=== PATIENT | male | born 1955 | race African-American/Black ===

== ENCOUNTER 2018-08-14 20:26 | Inpatient (IN) | payer MEDICARE ==
[~2018-08-14 20:26] MED LIST: ISOVUE-370 76%-LOCM 1 ML ONE
[2018-08-14] MEDS ORDERED: Acetaminophen/Codeine 30-300mg Tablet PO PRN (21:55)
[2018-08-14] MEDS ORDERED: Morphine 2 MG/ML SYRINGE SLOW IVP PRN (21:55)
[2018-08-14] MEDS ORDERED: Zolpidem Tartrate 5 MG TAB PO PRN (21:55)
[2018-08-14] MEDS ORDERED: traMADol HCl 50 MG TAB PO PRN (21:55)
--- NOTE | 2018-08-14 22:05 | CT ---
CTA CHEST WITH IV CONTRAST AND 3D POSTPROCESSING CTA ABDOMEN WITH IV CONTRAST AND 3D POSTPROCESSIN08/14/18 HISTORY: 62-year-old male with hemoptysis and concern for aortic dissection. FINDINGS: The thoracoabdominal aorta is well opacified without aneurysm or intimal flap to suggest dissection. The main pulmonary arteries are well opacified without filling defects to suggest central pulmonary e mbolism. Peripheral pulmonary embolism cannot be excluded on this study. No pleural or pericardial effusions are seen. Emphysematous changes are seen most prominent in the up per lung aguiar. There is a 10 mm nodule in the left upper lobe. Mild reticulonodular infiltrate is a lso seen in the central portion of the left upper lobe. Evaluation of solid organs is suboptimal due to imaging during the arterial phase of contrast adminis tration. The pancreas, adrenal glands, and kidneys are unremarkable. No free air or free fluid is see n in the abdomen. There Are degenerative changes in the thoracolumbar spine. IMPRESSION: 1. No evidence of aortic dissection. 2. 1 cm left upper lobe lung nodule. Further evaluation with PET scan is recommended. Discussed over the telephone with Dr. Horvath at 8:[address] p[address]. Code CR Code LN POS: [facility]
[2018-08-14] MEDS: Sodium Chloride 0.9% 1,000 ML IV SCH (22:16)
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
[2018-08-14] MEDS ORDERED: Nitroglycerin 50 MG/250 ML BOT 250 ML IVPB SCH (22:45)
[2018-08-14 22:52] LABS: CKMB 52.5 ng/mL (0-6.6)
[2018-08-14 23:07] LABS: Troponin I 125.441 ng/mL (< 0.028)
[2018-08-15] MEDS: Ondansetron PF 4 MG/2 ML Vial IVP PRN ×2 (00:55→05:46)
[2018-08-15] MEDS: Sodium Chloride 0.9% 1,000 ML IV SCH ×2 (03:11→22:30)
[2018-08-15 06:23] LABS: #Monocytes 1.3 thou/uL (0.11-0.59); #Neutrophils 11.6 thou/uL (1.40-6.50); %Basophils 0.2 % (0.0-1.0); %Lymphocytes 6.9 % (21.0-51.0); %Monocytes 9.6 % (0.0-10.0); %Neutrophils 83.3 % (42.0-75.0); Hemoglobin 14.7 g/dL (14.0-18.0); Mean Corpuscular HGB CONC 32.3 g/dL (32.0-36.0); Mean Corpuscular Hemoglobin 30.2 pg (27.0-31.0); Mean Corpuscular Volume 93.6 fL (78.0-98.0); Mean Platelet Volume 7.3 fL (7.4-10.4); Platelet Count 220 thou/uL (130-400); RBC Distribution Width 11.7 % (11.5-14.5); Red Blood Cell (RBC) Count 4.87 mill/uL (4.70-6.10); White Blood Cell (WBC) Count 13.9 thou/uL (4.8-10.8)
[2018-08-15 06:30] LABS: ALT (SGPT) 43 U/L (8-55); AST (SGOT) 235 U/L (5-34); Albumin 3.5 g/dL (3.4-4.8); Alkaline Phosphatase 124 U/L (40-150); Anion Gap 16 mmol/L (10-20); BUN (Urea Nitrogen) 12 mg/dL (8.4-25.7); Bilirubin, Total 0.9 mg/dL (0.2-1.2); Calc. Creatinine Clearance 78 mL/min (70-130); Calcium 8.7 mg/dL (7.8-10.44); Carbon Dioxide 22 mmol/L (23-31); Chloride 94 mmol/L (98-107); Estimated GFR-MDRD Greater than 90; Globulin 2.6 g/dL (2.4-3.5); Glucose 316 mg/dL (80-115); Potassium 3.8 mmol/L (3.5-5.1); Protein, Total 6.1 g/dL (5.8-8.1); Sodium 128 mmol/L (136-145)
[2018-08-15 06:54] LABS: CKMB 61.3 ng/mL (0-6.6); Troponin I 145.447 ng/mL (< 0.028)
[2018-08-15] MEDS: Aspirin Chewable 81 MG TAB PO SCH (08:30)
[2018-08-15] MEDS: Clopidogrel Bisulfate 75 MG TAB PO SCH (08:30)
[2018-08-15] MEDS ORDERED: Dextrose 50% Abboject 50 ML SYRINGE SLOW IVP PRN (15:08)
[2018-08-15] MEDS ORDERED: Dextrose 5% in Water 1,000 ML IV PRN (15:08)
[2018-08-15] MEDS ORDERED: Lisinopril 10 MG TAB PO SCH (15:30)
[2018-08-15] MEDS ORDERED: Carvedilol 6.25 MG TAB PO SCH (15:30)
[2018-08-15] MEDS: HumaLOG 300 UNITS/3 ML VIAL SC PRN (16:01)
[2018-08-15] MEDS: Carvedilol 6.25 MG TAB PO SCH (16:24)
--- NOTE | 2018-08-15 17:08 | EKG ---
Test Reason : POST CATH Blood Pressure : / mmHG Vent. Rate : 114 BPM Atrial Rate : 114 BPM P-R Int : 128 ms QRS Dur : 086 ms QT Int : 370 ms P-R-T Axes : 074 042 089 degrees QTc Int : 509 ms Sinus tachycardia with Premature atrial complexes Biatrial enlargement Left ventricular hypertrophy ST elevation consider inferior injury or acute infarct ACUTE CT / STEMI Consider right ventricular involvement in acute inferior infarct Abnormal ECG Confirmed by Karla BILLS ([id number]) on 08/15/2018 5:07:49 PM Referred By: Mandi ALBERT Confirmed By:Karla BILLS
--- NOTE | 2018-08-15 17:08 | EKG ---
Test Reason : Blood Pressure : / mmHG Vent. Rate : 104 BPM Atrial Rate : 104 BPM P-R Int : 126 ms QRS Dur : 092 ms QT Int : 368 ms P-R-T Axes : 075 -35 091 degrees QTc Int : 483 ms Sinus tachycardia Right atrial enlargement Left axis deviation Minimal voltage criteria for LVH, may be normal variant Inferior-posterior infarct , possibly acute * ACUTE NH * Consider right ventricular involvement in acute inferior infarct Abnormal ECG When compared with ECG of 14-AUG-2018 22:37, (Unconfirmed) Premature atrial complexes are no longer Present QRS axis Shifted left Inferior-posterior infarct is now Present ST less depressed in Lateral leads Confirmed by Karla BILLS ([id number]) on 08/15/2018 5:08:45 PM Referred By: ROOSEVELT Confirmed By:Karla BILLS
--- NOTE | 2018-08-15 18:51 | PDOC.CTH ---
Cardiology Progress Note - Subjective He is doing better. His Hemoptysis is better but still present. No chest pain. - Objective Vital Signs Temp BP Pulse Ox 08/15/18 16:24 170/17 H 08/15/18 16:00 98.4 F 08/15/18 15:57 170/107 H 08/15/18 12:00 98.5 F 08/15/18 07:07 100 08/15/18 07:00 98.7 F Admit Weight 144 lb Weight 144 lb 9.972 oz 08/14/18 08/15/18 08/16/18 06:59 06:59 06:59 Intake Total 1314 1974 Output Total 850 1100 Balance 464 874 - Physical Examination General/Neuro: alert & oriented x3, NAD Neck: no JVD present Lungs: unlabored respirations Heart: RRR Abdomen: NT/ND Extremities: other: (no edema) - Telemetry Telemetry Rhythm: NSR - Labs Result Diagrams: 08/15/18 05:58 08/15/18 03:30 Troponin/CKMB CK-MB (CK-2) 61.3 ng/mL (0-6.6) H* 08/15/18 04:00 Troponin I 145.447 ng/mL (< 0.028) H* 08/15/18 04:00 - Assessment/Plan 1. Acute inferior STEMI 2. S/P BMS to LCx. 3. Hemoptysis. 4. Pulmonary nodule 5. Type 2 diabetes, new onset. PLAN: - Will stop nitro drip - Increase BB and ACEI - Continue MAXIMINO with aspirin and plavix for minimum of one month. - High dose statins. - Possible bronchoscopy per pulmonary. - Continue to monitor Hgb. - 45 minutes critical care.
[2018-08-15 20:18] LABS: Critical Call Chem Troponin I RESULT DECREASING
[2018-08-15 20:58] LABS: CKMB 17.7 ng/mL (0-6.6); Critical Call CKMB RESULT DECREASING
[2018-08-15] MEDS: Atorvastatin Calcium 40 MG TAB PO SCH (21:21)
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
[2018-08-16] MEDS: Sodium Chloride 0.9% 1,000 ML IV SCH ×2 (05:26→12:54)
[2018-08-16] MEDS: HumaLOG 300 UNITS/3 ML VIAL SC PRN ×3 (05:31→20:24)
[2018-08-16 05:53] LABS: #Lymphocytes 1.3 thou/uL (1.20-3.40); #Monocytes 1.5 thou/uL (0.11-0.59); #Neutrophils 9.8 thou/uL (1.40-6.50); %Basophils 0.1 % (0.0-1.0); %Eosinophils 0.2 % (0.0-10.0); %Monocytes 11.8 % (0.0-10.0); %Neutrophils 77.9 % (42.0-75.0); Hemoglobin 13.2 g/dL (14.0-18.0); Mean Corpuscular HGB CONC 31.2 g/dL (32.0-36.0); Mean Corpuscular Hemoglobin 29.3 pg (27.0-31.0); Mean Corpuscular Volume 93.9 fL (78.0-98.0); Mean Platelet Volume 7.4 fL (7.4-10.4); Platelet Count 199 thou/uL (130-400); RBC Distribution Width 11.5 % (11.5-14.5); White Blood Cell (WBC) Count 12.6 thou/uL (4.8-10.8)
[2018-08-16 06:20] LABS: ALT (SGPT) 30 U/L (8-55); AST (SGOT) 79 U/L (5-34); Albumin 3.2 g/dL (3.4-4.8); Alkaline Phosphatase 96 U/L (40-150); Anion Gap 14 mmol/L (10-20); BUN (Urea Nitrogen) 10 mg/dL (8.4-25.7); Bilirubin, Total 1.3 mg/dL (0.2-1.2); Calc. Creatinine Clearance 92 mL/min (70-130); Calcium 8.7 mg/dL (7.8-10.44); Carbon Dioxide 22 mmol/L (23-31); Chloride 99 mmol/L (98-107); Estimated GFR-MDRD Greater than 90; Globulin 2.6 g/dL (2.4-3.5); Glucose 179 mg/dL (80-115); Potassium 3.9 mmol/L (3.5-5.1); Protein, Total 5.8 g/dL (5.8-8.1); Sodium 131 mmol/L (136-145)
[2018-08-16] MEDS ORDERED: Fentanyl 100 MCG/2 ML VIAL ONE (08:27)
[2018-08-16] MEDS: Lisinopril 10 MG TAB PO SCH (08:32)
[2018-08-16] MEDS: Carvedilol 6.25 MG TAB PO SCH ×2 (08:33→16:27)
[2018-08-16] MEDS: Clopidogrel Bisulfate 75 MG TAB PO SCH (08:34)
[2018-08-16] MEDS: Aspirin Chewable 81 MG TAB PO SCH (08:34)
--- NOTE | 2018-08-16 12:17 | PRG ---
DATE OF SERVICE: 08/16/2018 SERVICE: Pulmonary Medicine. INTERVAL HISTORY: The patient stopped having hemoptysis last night. He denies any current chest pain, fevers, or chills. There were no overnight events. His chest discomfort has improved significantly since his blood vessel has opened up. He is going to go down for a bronchoscopy this morning. PHYSICAL EXAMINATION: VITAL SIGNS: Afebrile, pulse 93, blood pressure 167/108, respirations 21, saturation 100% on room air. GENERAL: The patient is awake and alert, in no apparent distress. LUNGS: Decent air entry. There is no prolonged expiratory phase, wheezing, rhonchi, or crackles. HEART: Normal rate and regular. ABDOMEN: Soft, nontender, and nondistended. Bowel sounds positive. MUSCULOSKELETAL: No cyanosis or clubbing. No pitting in the bilateral lower extremities. NEUROLOGIC: Grossly nonfocal. LABORATORY DATA: WBC 12.6, hemoglobin 13.2, and platelets 199,000. Sodium 131. Basic metabolic profile is otherwise unremarkable. His sodium is uptrending. Total bilirubin 1.3, AST 97. Liver function studies are otherwise unremarkable. Troponin is beautifully downtrending down to 75. Blood cultures x2 are negative to date. ASSESSMENT: 1. Pulmonary nodule. 2. Hemoptysis. 3. Acute myocardial infarction, status post bare metal stent to the circumflex. 4. Type 2 diabetes mellitus. DISCUSSION AND PLAN: We are in line to proceed with bronchoscopy. Obviously, I will not be able to take a biopsy, but brushings, and BAL from the left upper lobe could be tolerated. Since the patient is asymptomatic, I will table the V/Q scan for the time being. Pulmonary/Critical Care will continue to follow along. Job ID: [id number]
[2018-08-16] MEDS ORDERED: PROPOFOL 200 MG/20 ML VIAL ONE (15:38)
[2018-08-16] MEDS ORDERED: Glycopyrrolate 0.2 MG/ML 5 ML SYRINGE ONE (15:38)
[2018-08-16] MEDS ORDERED: Rocuronium Bromide 10 MG/ML (10ML VIAL) ONE (15:38)
--- NOTE | 2018-08-16 16:32 | PDOC.CTH ---
Cardiology Progress Note - Subjective He is doing well. No chest pain. BP better controlled. - Objective Vital Signs Temp BP Pulse Ox 08/16/18 16:27 148/93 H 08/16/18 12:00 98.9 F 08/16/18 08:33 152/97 H 08/16/18 08:32 152/97 H 08/16/18 07:12 100 Admit Weight 144 lb Weight 144 lb 9.972 oz 08/15/18 08/16/18 08/17/18 06:59 06:59 06:59 Intake Total 1314 2054 360 Output Total 850 1500 0 Balance 464 554 360 - Physical Examination General/Neuro: alert & oriented x3, NAD Neck: no JVD present Lungs: CTA, unlabored respirations Heart: RRR Abdomen: NT/ND Extremities: other: (no edema) - Telemetry Telemetry Rhythm: NSR - Labs Result Diagrams: 08/16/18 05:24 08/16/18 05:24 Troponin/CKMB CK-MB (CK-2) 17.7 ng/mL (0-6.6) H* 08/15/18 18:57 Troponin I 75.016 ng/mL (< 0.028) H* 08/15/18 18:57 - Assessment/Plan 1. Acute inferior STEMI 2. S/P BMS to LCx. 3. Hemoptysis. 4. Pulmonary nodule 5. Type 2 diabetes, new onset. PLAN: - Increase BB and ACEI - Continue MAXIMINO with aspirin and plavix for minimum of one month. - High dose statins. - Continue to monitor Hgb. - No more hemoptysis. - Will transfer to telemetry. - Likely home tomorrow.
[2018-08-16] MEDS: Atorvastatin Calcium 40 MG TAB PO SCH (20:23)
[2018-08-16] MEDS: HumuLIN 70/30 (300 UNITS/3 ML VIAL) SC SCH (20:24)
--- NOTE | 2018-08-16 23:02 | OP ---
DATE OF PROCEDURE: 08/16/2018 SERVICE: Pulmonary Medicine. PROCEDURE PERFORMED: Fiberoptic bronchoscopy with: 1. Visual airway inspection. 2. Endobronchial brush of the left upper lobe. 3. Bronchoalveolar lavage of the left upper lobe. PREPROCEDURE DIAGNOSES: 1. Pulmonary nodule. 2. Hemoptysis. POSTPROCEDURE DIAGNOSES: 1. Pulmonary nodule. 2. Hemoptysis. PREANESTHESIA ASSESSMENT: H and P had been performed. The patient's medications and allergies were reviewed. Informed consent was obtained after discussing the risks, benefits, and rationale for performing the procedure as well as alternative options. DESCRIPTION OF PROCEDURE: A time-out was performed identifying the correct procedure and the patient with name and date of . A diagnostic fiberoptic bronchoscope was introduced through the endotracheal tube. The bronchoscope was advanced into the trachea, where a tracheobronchial tree inspection was carried out with clear identification of the right upper lobe, right middle lobe, right lower lobe, left upper lobe, lingula, and left lower lobe. Anatomy was normal to the segmental level. Endobronchial lesion was noted in the anterolateral segment (anterior subsegment) of the left upper lobe. This lesion was brushed under direct observation. Endobronchial biopsies could not be done because the patient requires Plavix for next month. Bronchoalveolar lavage was obtained from the left upper lobe in the same segment. Following the lavage, I could no longer identify the lesion. There was old blood that was coming primarily from the left lung, more severe in the left upper lobe, consistent with this lesion being our source. FINDINGS: 1. Araceli was sharp. 2. Endobronchial lesion was identified in the anterolateral segment of the left upper lobe, anterior segment. 3. Old blood was identified, primarily coming from that same segment. SPECIMENS OBTAINED: Brushing and BAL for pathology. COMPLICATIONS: None. ESTIMATED BLOOD LOSS: None that is fresh. FLUOROSCOPY TIME: None. DISPOSITION: The patient will be transitioned back to the ICU once he meets criteria. Job ID: [id number] [facility]
[2018-08-17] MEDS: Nitroglycerin 0.4 MG TAB (25 Tab Bottle) SL PRN (00:29)
[2018-08-17] MEDS ORDERED: Amiodarone 450 MG, Admixture Fee 1 EACH in Dextrose 5% in Water 250 ML IVPB SCH (00:45)
[2018-08-17] MEDS: HumaLOG 300 UNITS/3 ML VIAL SC PRN ×2 (06:21→17:03)
[2018-08-17 07:13] LABS: #Lymphocytes 1.2 thou/uL (1.20-3.40); #Monocytes 0.9 thou/uL (0.11-0.59); %Basophils 0.3 % (0.0-1.0); %Eosinophils 0.2 % (0.0-10.0); %Lymphocytes 13.2 % (21.0-51.0); %Neutrophils 76.3 % (42.0-75.0); Hemoglobin 12.2 g/dL (14.0-18.0); Mean Corpuscular HGB CONC 31.4 g/dL (32.0-36.0); Mean Corpuscular Hemoglobin 31.1 pg (27.0-31.0); Mean Corpuscular Volume 98.9 fL (78.0-98.0); Mean Platelet Volume 7.4 fL (7.4-10.4); Platelet Count 201 thou/uL (130-400); RBC Distribution Width 11.6 % (11.5-14.5); Red Blood Cell (RBC) Count 3.94 mill/uL (4.70-6.10); White Blood Cell (WBC) Count 9.2 thou/uL (4.8-10.8)
[2018-08-17 07:38] LABS: ALT (SGPT) 29 U/L (8-55); AST (SGOT) 63 U/L (5-34); Albumin 3.1 g/dL (3.4-4.8); Alkaline Phosphatase 146 U/L (40-150); Anion Gap 14 mmol/L (10-20); BUN (Urea Nitrogen) 15 mg/dL (8.4-25.7); Bilirubin, Total 1.1 mg/dL (0.2-1.2); Calc. Creatinine Clearance 81 mL/min (70-130); Calcium 8.4 mg/dL (7.8-10.44); Carbon Dioxide 21 mmol/L (23-31); Chloride 100 mmol/L (98-107); Estimated GFR-MDRD Greater than 90; Globulin 2.5 g/dL (2.4-3.5); Glucose 298 mg/dL (80-115); Potassium 3.9 mmol/L (3.5-5.1); Protein, Total 5.6 g/dL (5.8-8.1); Sodium 131 mmol/L (136-145)
[2018-08-17] MEDS: Carvedilol 6.25 MG TAB PO SCH ×2 (09:59→17:02)
[2018-08-17] MEDS: Aspirin Chewable 81 MG TAB PO SCH (10:00)
[2018-08-17] MEDS: Lisinopril 10 MG TAB PO SCH (10:00)
[2018-08-17] MEDS: Clopidogrel Bisulfate 75 MG TAB PO SCH (10:00)
[2018-08-17] MEDS: HumuLIN 70/30 (300 UNITS/3 ML VIAL) SC SCH ×2 (10:02→20:20)
--- NOTE | 2018-08-17 10:28 | PDOC.CTH ---
Cardiology Progress Note - Subjective He went into afib RVR last night. Back in sinus this morning. Was started on amiodarone drip. - Objective Vital Signs Temp BP 08/17/18 10:00 148/93 H 08/17/18 09:59 148/93 H 08/17/18 06:00 98.8 F 08/17/18 00:00 100.1 F H Admit Weight 144 lb Weight 144 lb 9.972 oz 08/16/18 08/17/18 08/18/18 06:59 06:59 06:59 Intake Total 2054 1238 Output Total 1500 2300 Balance 554 -1062 - Physical Examination General/Neuro: alert & oriented x3, NAD Neck: no JVD present Lungs: CTA, unlabored respirations Heart: RRR Abdomen: NT/ND Extremities: other: (no edema) - Telemetry Telemetry Rhythm: Afib --> NSR - Labs Result Diagrams: 08/17/18 06:41 08/17/18 06:41 Troponin/CKMB CK-MB (CK-2) 17.7 ng/mL (0-6.6) H* 08/15/18 18:57 Troponin I 75.016 ng/mL (< 0.028) H* 08/15/18 18:57 - Assessment/Plan 1. Acute inferior STEMI 2. S/P BMS to LCx. 3. Hemoptysis. 4. Pulmonary nodule 5. Type 2 diabetes, new onset. 6. Post PR afib. PLAN: - Increase BB and ACEI - Continue MAXIMINO with aspirin and plavix for minimum of one month. - High dose statins. - No more hemoptysis. - Will stop amiodarone. - Aspirin alone for stroke prophylaxis due to his hemoptysis. - Transfer to telemetry when room available. - Home tomorrow if stable.
--- NOTE | 2018-08-17 12:06 | PRG ---
DATE OF SERVICE: 08/17/2018 SERVICE: Pulmonary Medicine. INTERVAL HISTORY: The patient is doing really well from respiratory standpoint. Last night, he had an elevated blood pressure went into atrial fibrillation. He was put on amiodarone and nitroglycerin. Nitroglycerin is once again off. His blood pressure is under good control, he has gone back into apparent sinus rhythm. PHYSICAL EXAMINATION: VITAL SIGNS: Afebrile with a T-max of 100.1. Pulse 77, blood pressure 126/80, respirations 22, and saturation 95% on room air. GENERAL: The patient is awake and alert, in no apparent distress. LUNGS: Excellent air entry with no prolonged expiratory phase or wheezing present. HEART: Normal rate and regular. ABDOMEN: Soft, nontender, and nondistended. Bowel sounds are positive. MUSCULOSKELETAL: No cyanosis or clubbing. No pitting in the bilateral lower extremities. NEUROLOGIC: Grossly nonfocal. LABORATORY DATA: WBC 9.2, hemoglobin 12.2, and platelets 201,000. Basic metabolic profile is essentially unremarkable with a sodium of 131. Liver function studies are unremarkable/improving. Blood cultures x2 are negative. Pathology on BAL and brushing is pending. ASSESSMENT: 1. Pulmonary nodule, status post brushing and BAL (no transbronchials secondary to requirement for anti-platelet medication). 2. Hemoptysis, coming from left upper lobe where the endobronchial lesion was present. 3. Acute myocardial infarction, status post bare metal stent to the circumflex. 4. Paroxysmal atrial fibrillation. 5. Type 2 diabetes mellitus. DISCUSSION AND PLAN: We will await the pathology. If it is helpful, we will know we need to do. If it is not, my plan is to repeat a CT scan in 3 months. The patient is stable for transition to the telemetry unit. I will repeat hemoglobin tomorrow morning. Pulmonary will continue to follow along. Job ID: [id number] [facility]
[2018-08-17] MEDS: Atorvastatin Calcium 40 MG TAB PO SCH (20:19)
[2018-08-18] MEDS: Amiodarone 450 MG, Admixture Fee 1 EACH in Dextrose 5% in Water 250 ML IVPB SCH ×2 (00:07→08:48)
[2018-08-18] MEDS ORDERED: Multivitamins, Adult 10 ML, Thiamine HCl 100 MG, Folic Acid 1 MG in Dextrose 5 %-0.45 %... IV SCH (00:30)
[2018-08-18 05:02] LABS: Hemoglobin 11.9 g/dL (14.0-18.0)
[2018-08-18 05:25] LABS: Anion Gap 11 mmol/L (10-20); BUN (Urea Nitrogen) 10 mg/dL (8.4-25.7); Calc. Creatinine Clearance 94 mL/min (70-130); Calcium 8.7 mg/dL (7.8-10.44); Carbon Dioxide 28 mmol/L (23-31); Chloride 101 mmol/L (98-107); Estimated GFR-MDRD Greater than 90; Glucose 154 mg/dL (80-115); Potassium 4.1 mmol/L (3.5-5.1); Sodium 136 mmol/L (136-145)
[2018-08-18] MEDS: Carvedilol 6.25 MG TAB PO SCH ×2 (08:42→16:28)
[2018-08-18] MEDS: Lisinopril 10 MG TAB PO SCH (08:43)
[2018-08-18] MEDS: Clopidogrel Bisulfate 75 MG TAB PO SCH (08:44)
[2018-08-18] MEDS: Aspirin Chewable 81 MG TAB PO SCH (08:44)
[2018-08-18] MEDS: HumuLIN 70/30 (300 UNITS/3 ML VIAL) SC SCH ×2 (08:46→21:21)
--- NOTE | 2018-08-18 09:29 | PRG ---
DATE OF SERVICE: 08/18/2018 SUBJECTIVE: Rylie Medley this morning, denies any pain or discomfort or chest pain. He is status post bronchoscopy, status post cardiac cath, underwent brushings, so far cytology has been negative. He will be transferred to a monitored bed. OBJECTIVE: VITAL SIGNS: Blood pressure 152/80, saturations are 98%, respiratory rate 18, pulse 80. CHEST: Decreased breath sounds. No wheezing. CARDIAC: Normal S1, S2. No gallops. ABDOMEN: No masses. IMPRESSION: Status post STEMI, atrial fibrillation, lung mass, status post bronchoscopy. PLAN: He will be transferred to Telemetry. Continue cardiac care. Further pulmonary workup is more stable. Job ID: [id number]
--- NOTE | 2018-08-18 12:11 | PDOC.CTH ---
Cardiology Progress Note - Subjective The pt seen and examined. No overnight events. No cardiac complaints. - Objective Vital Signs Temp Pulse Resp BP BP Pulse Ox 08/18/18 09:44 98.4 F 73 16 167/82 H 93 L 08/18/18 08:43 152/118 H 08/18/18 08:42 152/118 H 08/18/18 08:00 97 08/18/18 06:00 99.5 F Admit Weight 144 lb Weight 153 lb 14.122 oz 08/17/18 08/18/18 08/19/18 06:59 06:59 06:59 Intake Total 1238 1004 Output Total 2300 2150 Balance -1062 -1146 - Physical Examination General/Neuro: alert & oriented x3 Neck: no JVD present Lungs: CTA (diminished at bases) Abdomen: soft Extremities: other: (No edema) - Telemetry Telemetry Rhythm: SR - Labs Result Diagrams: 08/18/18 04:51 08/18/18 04:51 Troponin/CKMB CK-MB (CK-2) 17.7 ng/mL (0-6.6) H* 08/15/18 18:57 Troponin I 75.016 ng/mL (< 0.028) H* 08/15/18 18:57 - Assessment/Plan 1. Acute inferior STEMI with S/P BMS to LCx - On Coreg 6.25mg BID, Plavix 75mg qd, ASA 81mg qd, and Lipitor 80mg qd 2. Post TN afib - Amio drip was restarted around 08/18/2018 MN and back to SR around 0630 this AM. Cont. Amio drip will be changed to PO from tomorrow AM. 3. Pulmonary nodule - stable with RA 4. Type 2 diabetes, new onset 5. Hemoptysis - stable. 6. HTN - Increase Lisinopril from 10mg to 20mg qd from today MAR reviewed Review of Systems - Review of Systems Constitutional: reports: no symptoms reported EENTM: reports: no symptoms reported Respiratory: reports: no symptoms reported Cardiac (ROS): reports: no symptoms reported ABD/GI: reports: no symptoms reported : reports: no symptoms reported Musculoskeletal: reports: no symptoms reported
[2018-08-18] MEDS: HumaLOG 300 UNITS/3 ML VIAL SC PRN (13:06)
[2018-08-18] MEDS ORDERED: Lisinopril 10 MG TAB PO SCH (13:30)
[2018-08-18] MEDS: Atorvastatin Calcium 40 MG TAB PO SCH (21:19)
[2018-08-18] MEDS ORDERED: Diazepam 10 MG/2 ML SYRINGE IVP SCH (22:00)
[2018-08-18] MEDS ORDERED: Lorazepam 2 MG/ML VIAL ONE (22:00)
[2018-08-18] MEDS: hydrALAZINE 20 MG/ML VIAL SLOW IVP PRN (22:12)
[2018-08-18] MEDS ORDERED: Nitroglycerin 0.4 MG TAB (25 Tab Bottle) ONE (22:29)
[2018-08-18] MEDS ORDERED: Furosemide 40 MG/4 ML VIAL ONE (22:39)
--- NOTE | 2018-08-18 22:58 | RAD ---
Chest one view HISTORY: Syncope. COMPARISON: 08/14/2018. FINDINGS: Cardiac silhouette is magnified by projection. Pulmonary vasculature upper limits of normal . Reticulonodular interstitial prominence is present throughout the right lung in the left upper lobe. Relative sparing of the left lower lobe. Defibrillator patch overlies the left upper chest. No evidence of pneumothorax. Circular opacity overlies the lower cardiac silhouette. Suspect extrinsic artifact. IMPRESSION: Borderline pulmonary vascular congestion.
[2018-08-18] MEDS ORDERED: Morphine 2 MG/ML SYRINGE SLOW IVP SCH (23:00)
[2018-08-18] MEDS ORDERED: Furosemide 40 MG/4 ML VIAL SLOW IVP SCH (23:00)
[2018-08-18 23:12] LABS: Actual Bicarbonate (HCO3a) 26.9 mEq/L (22-28); Analyzer IN Cardio OR; Base Excess (BEa) -2.6 mEq/L (-2.0 to +3.0); Carboxyhemoglobin (COHb) 1.5 gm% (0.0-3.0); Hemoglobin (Hb) 12.6 g/dL (14.0-18.0); Potassium - ABG Lab 4.19 mmol/L (3.70-5.30)
[2018-08-18 23:13] LABS: CO2 Tension 70.7 mmHg (35.0-45.0); O2 Tension (PaO2) 35.8 mmHg (> 80.0)
[2018-08-18 23:14] LABS: ALV-art Gradient 75.465 (0-20); Puncture Site RRA
[2018-08-18] MEDS ORDERED: Nitroglycerin 2% Ointment 1 INCH/1 GM Packet ONE (23:22)
[2018-08-18 23:39] LABS: Actual Bicarbonate (HCO3a) 24.7 mEq/L (22-28); Base Excess (BEa) 0.4 mEq/L (-2.0 to +3.0); Carboxyhemoglobin (COHb) 2.2 gm% (0.0-3.0); Hemoglobin (Hb) 12.3 g/dL (14.0-18.0); O2 Tension (PaO2) 121.6 mmHg (> 80.0); Potassium - ABG Lab 3.63 mmol/L (3.70-5.30); pH, Arterial 7.42 (7.35-7.45)
[2018-08-18 23:41] LABS: Puncture Site RRAD
[2018-08-18 23:44] LABS: Actual Bicarbonate (HCO3a) 25.5 mEq/L (22-28); Base Excess (BEa) -1.7 mEq/L (-2.0 to +3.0); CO2 Tension 53.9 mmHg (35.0-45.0); Calcium, Ionized 1.08 mmol/L (1.12-1.30); Carboxyhemoglobin (COHb) 1.8 gm% (0.0-3.0); Hemoglobin (Hb) 12.4 g/dL (14.0-18.0); Potassium - ABG Lab 4.04 mmol/L (3.70-5.30); pH, Arterial 7.29 (7.35-7.45)
[2018-08-18 23:45] LABS: Actual Bicarbonate (HCO3a) 27.9 mEq/L (22-28); Calcium, Ionized 1.21 mmol/L (1.12-1.30); Carboxyhemoglobin (COHb) 2.1 gm% (0.0-3.0); Hemoglobin (Hb) 12.2 g/dL (14.0-18.0)
[2018-08-18 23:47] LABS: Puncture Site RRAD
[2018-08-18 23:48] LABS: ALV-art Gradient 235.625 (0-20)
[2018-08-18 23:48] LABS: O2 Tension (PaO2) 54.2 mmHg (> 80.0); pH, Arterial 7.09 (7.35-7.45)
[2018-08-18 23:49] LABS: Puncture Site RRAD
[2018-08-18] MEDS: Morphine 4 MG/ML VIAL ONE ×2 (23:54)
[2018-08-19] MEDS: Amiodarone 450 MG, Admixture Fee 1 EACH in Dextrose 5% in Water 250 ML IVPB SCH ×2 (00:35→17:23)
[2018-08-19] MEDS: Budesonide 0.5 MG/2 ML NEB NEB SCH ×3 (00:36→18:39)
[2018-08-19 01:31] LABS: Cocaine Metabolite Screen Not Detected (NotDetected); Medtox Reader # READER 4; Methamphetamine Not Detected (NotDetected); Phencyclidine (PCP) Not Detected (NotDetected); THC/Cannabinoid Screen Detected (NotDetected)
[2018-08-19 01:32] LABS: Amphetamine Not Detected (NotDetected); Barbiturates Screen Not Detected (NotDetected); Benzodiazepine Screen Detected (NotDetected); Medtox Control Line Valid? VALID (VALID); Methadone Not Detected (NotDetected); Opiate Screen Detected (NotDetected); Oxycodone Screen Not Detected (NotDetected); Tricyclic Screen Not Detected (NotDetected)
[2018-08-19 06:38] LABS: #Lymphocytes 1.1 thou/uL (1.20-3.40); #Monocytes 0.8 thou/uL (0.11-0.59); #Neutrophils 8.4 thou/uL (1.40-6.50); %Basophils 0.2 % (0.0-1.0); %Eosinophils 0.2 % (0.0-10.0); %Lymphocytes 10.8 % (21.0-51.0); %Monocytes 7.9 % (0.0-10.0); %Neutrophils 80.8 % (42.0-75.0); Hemoglobin 10.8 g/dL (14.0-18.0); Mean Corpuscular HGB CONC 31.5 g/dL (32.0-36.0); Mean Corpuscular Hemoglobin 30.2 pg (27.0-31.0); Mean Corpuscular Volume 95.8 fL (78.0-98.0); Mean Platelet Volume 7.4 fL (7.4-10.4); Platelet Count 246 thou/uL (130-400); RBC Distribution Width 11.4 % (11.5-14.5); Red Blood Cell (RBC) Count 3.58 mill/uL (4.70-6.10); White Blood Cell (WBC) Count 10.4 thou/uL (4.8-10.8)
[2018-08-19 07:05] LABS: ALT (SGPT) 29 U/L (8-55); AST (SGOT) 33 U/L (5-34); Albumin 3.1 g/dL (3.4-4.8); Alkaline Phosphatase 147 U/L (40-150); Anion Gap 12 mmol/L (10-20); BUN (Urea Nitrogen) 13 mg/dL (8.4-25.7); Bilirubin, Total 1.2 mg/dL (0.2-1.2); Calc. Creatinine Clearance 96 mL/min (70-130); Calcium 8.2 mg/dL (7.8-10.44); Carbon Dioxide 27 mmol/L (23-31); Chloride 99 mmol/L (98-107); Estimated GFR-MDRD Greater than 90; Globulin 2.6 g/dL (2.4-3.5); Glucose 156 mg/dL (80-115); Potassium 3.9 mmol/L (3.5-5.1); Protein, Total 5.7 g/dL (5.8-8.1); Sodium 134 mmol/L (136-145)
[2018-08-19 07:16] LABS: Syphilis Antibody Nonreactive (Nonreactive); Syphilis Antibody Index 0.05 S/CO (<1.00 Non-Reactive)
--- NOTE | 2018-08-19 08:15 | RAD ---
CHEST 1 VIEW: Date: 08/19/18 INDICATION: Status post code. COMPARISON: Prior exam dated 08/18/18. FINDINGS: There is worsening interstitial and air space opacity of the right lower lobe. Heart size is within n ormal limits. Pulmonary vasculature is within normal limits. Left lung is clear. No pleural effusion or pneumothorax is evident. Pacer pad overlying left chest wall is stable. IMPRESSION: 1. Worsening opacity of right infrahilar region may reflect worsening pneumonia or aspiration. 2. No additional acute abnormality. POS: [facility]
--- NOTE | 2018-08-19 08:19 | PRG ---
DATE OF SERVICE: 08/19/2018 SUBJECTIVE: Yesterday, he became markedly agitated, anxious. Stated he could not breathe. The code di was called in. He was given hydralazine. Placed on non-rebreather, still had some difficulty breathing. They called Cardiology, who has given him some nitroglycerin, Lasix. Transferred to the ICU on BiPAP. This morning, he appears to be in no acute distress. He is still on his BiPAP. I had reviewed his chest x-ray from last night and this morning. I do not see any obvious masses. He has a small right lower lung infiltrate, not enough to account for his marked respiratory distress. OBJECTIVE: VITAL SIGNS: His pulse is 67, saturations are 99%, respirations 20, blood pressure 140/90. CHEST: Decreased breath sounds. I hear no wheezing. CARDIAC: Normal S1, S2. No gallops. ABDOMEN: Soft. LABORATORY DATA: His PO2 is 121, pCO2 on BiPAP. His lytes are normal. White count is unremarkable. IMPRESSION: Respiratory distress, major anxiety, coronary artery disease endobronchial mass, hemoptysis, question whether pneumonia. PLAN: Continue amiodarone, neb treatments, supportive care. Empiric antibiotics. We will follow while in the ICU. One-half hour of critical care time. Job ID: [id number]
[2018-08-19] MEDS: Clopidogrel Bisulfate 75 MG TAB PO SCH (09:27)
[2018-08-19] MEDS: Aspirin Chewable 81 MG TAB PO SCH (09:27)
[2018-08-19] MEDS: Magnesium Oxide 400 MG TAB PO SCH (09:27)
[2018-08-19] MEDS: Multivitamin W/ Minerals 1 TAB PO SCH (09:27)
[2018-08-19] MEDS: Thiamine 100 MG TAB PO SCH (09:27)
[2018-08-19] MEDS: Folic Acid 1 MG TAB PO SCH (09:27)
[2018-08-19] MEDS: cefTRIAXone\\ROCEPHIN 1 GM in Sodium Chloride 0.9% 100 ML IVPB SCH (09:27)
[2018-08-19] MEDS: Lisinopril 20 MG TAB PO SCH (09:27)
[2018-08-19] MEDS: Carvedilol 6.25 MG TAB PO SCH ×2 (09:28→16:52)
[2018-08-19] MEDS: HumuLIN 70/30 (300 UNITS/3 ML VIAL) SC SCH ×2 (10:24→20:14)
[2018-08-19] MEDS: Lorazepam 2 MG/ML VIAL SLOW IVP PRN ×2 (11:19→20:15)
[2018-08-19] MEDS: HumaLOG 300 UNITS/3 ML VIAL SC PRN (11:19)
--- NOTE | 2018-08-19 16:48 | PRG ---
DATE OF SERVICE: 08/19/2018 SUBJECTIVE: Mr. Medley is a very pleasant 62-year-old gentleman, who was admitted with a myocardial infarction, inferior myocardial infarction acutely, underwent angioplasty and stent placement to the right coronary artery. He was doing relatively well until yesterday evening when he was lying down, watching a basketball game, he became very short of breath and then it progressed. He said he could not breathe and felt very tight, thought he had gas. He was seen by the nursing staff. He continued to decompensate, was transferred to intensive care unit, where he was placed on a BiPAP mass. He was given 40 mg of IV Lasix as well as hydralazine. He had significant hypertension at that time, blood pressure was over 200. He was given hydralazine, sublingual nitroglycerin, and given 2 mg of morphine and Ativan 2 mg. his O2 saturations were significantly decreased. His CO2 was elevated up to 95 with a pH of 7.06 with an O2 of 73. After being placed on the BiPAP a few minutes later, he increased it with a pO2 up to 400 and pCO2 was down to 53 with a pH of 7.29. O2 saturations had improved. He was still significantly agitated and we did notice that he has had infiltration of the IV, it was not going, his medications were just being subcu infused unfortunately, so it took some while for this to take effect. He was given DuoNeb. He still continues to have significant wheezing, was very tight in the chest. After the Lasix, he did have some urinary output. The blood pressure had improved, down to 146/81. He remained in sinus rhythm. After the patient became somewhat more calm after the medications started to take effect, the blood pressure noted to improve. His O2 saturations improved and final ABGs showed a pH of 7.42 with a pCO2 of 39 and pO2 of 121, and 99% saturations and blood pressure has remained stable and he did well for the remainder of the night. This morning, he is stable. He is comfortable. He remembers the events of the evening. Blood pressure is 128/86, heart rate is 81 and shows a sinus rhythm, respiratory rate is 20. He is off the BiPAP mask. He is on room air and has no significant complaints at this time. Hemoglobin was 10.8 and platelet count 246,000. His potassium is 3.9 and creatinine 0.79. His blood sugar is 214. Yesterday evening, the chest x-ray did show evidence of congestion, mainly on the right side, but no other acute events were noted. He did have some increased what appeared to be congestion and possible pneumonia. There were no significant effusions noted. This was reviewed by myself yesterday evening after it was acutely performed. There were no acute findings. There did not appear to be any acute pulmonary edema. I's and O's, he has put out yesterday evening total of about 700 mL and otherwise he seems to be doing quite well. It was thought perhaps he was having some EtOH withdrawal. However, he said he had not had any beers to drink in several days. He was started on a banana bag to ensure that he was getting his correct electrolytes and thiamine, just in case he was having early DTs. He did have a history of some anxiety, but otherwise appeared to be quite stable in this morning. OBJECTIVE: CHEST: Minimal expiratory wheezing, otherwise is clear. CARDIOVASCULAR: Reveals a regular rate and rhythm. There were no gross murmurs noted. ABDOMEN: Soft, flat, and nontender. EXTREMITIES: No edema. The patient is alert and oriented and has no complaints at this time. PLAN: We will continue to follow the patient and further recommendations will follow after the review the echocardiogram today. Hopefully, he will be able to transfer out of the CCU this morning. Job ID: [id number]
[2018-08-19] MEDS: Atorvastatin Calcium 40 MG TAB PO SCH (20:13)
[2018-08-19] MEDS ORDERED: Morphine 4 MG/ML VIAL ONE (20:48)
[2018-08-19] MEDS: Nitroglycerin 0.4 MG TAB (25 Tab Bottle) SL PRN ×2 (20:55→21:00)
[2018-08-19] MEDS: hydrALAZINE 20 MG/ML VIAL SLOW IVP PRN (21:03)
[2018-08-20 04:47] LABS: Anion Gap 12 mmol/L (10-20); BUN (Urea Nitrogen) 14 mg/dL (8.4-25.7); Calc. Creatinine Clearance 92 mL/min (70-130); Calcium 8.4 mg/dL (7.8-10.44); Carbon Dioxide 27 mmol/L (23-31); Chloride 99 mmol/L (98-107); Estimated GFR-MDRD Greater than 90; Glucose 183 mg/dL (80-115); Potassium 4.5 mmol/L (3.5-5.1); Sodium 133 mmol/L (136-145)
[2018-08-20] MEDS: Budesonide 0.5 MG/2 ML NEB NEB SCH ×2 (07:50→18:55)
[2018-08-20] MEDS: Aspirin Chewable 81 MG TAB PO SCH (08:26)
[2018-08-20] MEDS: Carvedilol 6.25 MG TAB PO SCH ×2 (08:26→18:03)
[2018-08-20] MEDS: Multivitamin W/ Minerals 1 TAB PO SCH (08:26)
[2018-08-20] MEDS: Magnesium Oxide 400 MG TAB PO SCH (08:26)
[2018-08-20] MEDS: Folic Acid 1 MG TAB PO SCH (08:26)
[2018-08-20] MEDS: Clopidogrel Bisulfate 75 MG TAB PO SCH (08:26)
[2018-08-20] MEDS: Thiamine 100 MG TAB PO SCH (08:26)
[2018-08-20] MEDS: Lisinopril 20 MG TAB PO SCH (08:26)
[2018-08-20] MEDS: cefTRIAXone\\ROCEPHIN 1 GM in Sodium Chloride 0.9% 100 ML IVPB SCH (08:27)
[2018-08-20] MEDS: HumuLIN 70/30 (300 UNITS/3 ML VIAL) SC SCH ×2 (08:34→20:56)
[2018-08-20] MEDS: Amiodarone 450 MG, Admixture Fee 1 EACH in Dextrose 5% in Water 250 ML IVPB SCH (09:33)
[2018-08-20] MEDS: HumaLOG 300 UNITS/3 ML VIAL SC PRN (11:29)
[2018-08-20 11:56] LABS: Calc. Creatinine Clearance 84 mL/min (70-130); Estimated GFR-MDRD Greater than 90
[2018-08-20 12:07] LABS: CKMB 7.1 ng/mL (0-6.6)
--- NOTE | 2018-08-20 12:27 | PDOC.CTH ---
Cardiology Progress Note - Subjective He feels back to normal. - Objective Vital Signs Temp Pulse Resp BP Pulse Ox 08/20/18 08:26 133/85 08/20/18 08:00 98.3 F 136/79 100 08/20/18 07:50 76 23 H 95 08/20/18 03:00 98.8 F 08/20/18 02:33 72 Admit Weight 144 lb Weight 153 lb 14.122 oz 08/19/18 08/20/18 08/21/18 06:59 06:59 06:59 Intake Total 1716 2055 300 Output Total 2300 1355 0 Balance -584 700 300 - Physical Examination General/Neuro: alert & oriented x3, NAD Neck: no JVD present Lungs: CTA, unlabored respirations Heart: RRR Abdomen: NT/ND Extremities: other: (no edema) - Telemetry Telemetry Rhythm: NSR - Labs Result Diagrams: 08/19/18 05:49 08/20/18 11:01 Troponin/CKMB CK-MB (CK-2) 7.1 ng/mL (0-6.6) H* 08/20/18 11:00 Troponin I 8.994 ng/mL (< 0.028) H* 08/20/18 11:00 - Assessment/Plan 1. Acute inferior STEMI 2. S/P BMS to LCx. 3. Hemoptysis. 4. Pulmonary nodule 5. Type 2 diabetes, new onset. 6. Post [place] afib. PLAN: - Continue BB and ACEI - Continue MAXIMINO with aspirin and plavix for minimum of one month. - High dose statins. - No more hemoptysis. - Stop amiodarone. - Aspirin alone for stroke prophylaxis due to his hemoptysis. - Transfer to [facility] for now and if stable tomorrow discharge home.
[2018-08-20] MEDS: Atorvastatin Calcium 40 MG TAB PO SCH (20:58)
--- NOTE | 2018-08-20 22:30 | EKG ---
Test Reason : STAT Blood Pressure : / mmHG Vent. Rate : 155 BPM Atrial Rate : 166 BPM P-R Int : 000 ms QRS Dur : 092 ms QT Int : 296 ms P-R-T Axes : 000 019 140 degrees QTc Int : 475 ms Atrial fibrillation with rapid ventricular response Posterior infarct , possibly acute Marked ST abnormality, possible lateral subendocardial injury ACUTE TX / STEMI Abnormal ECG When compared with ECG of 15-AUG-2018 07:11, Significant changes have occurred Confirmed by Karla BILLS ([id number]) on 08/20/2018 10:30:19 PM Referred By: ROOSEVELT Confirmed By:Karla BILLS
--- NOTE | 2018-08-20 22:33 | EKG ---
Test Reason : Blood Pressure : / mmHG Vent. Rate : 078 BPM Atrial Rate : 078 BPM P-R Int : 132 ms QRS Dur : 094 ms QT Int : 392 ms P-R-T Axes : 022 000 090 degrees QTc Int : 446 ms Normal sinus rhythm Possible Left atrial enlargement Inferior infarct , possibly acute * ACUTE TN * Consider right ventricular involvement in acute inferior infarct Abnormal ECG When compared with ECG of 17-AUG-2018 00:28, (Unconfirmed) Significant changes have occurred Confirmed by Karla BILLS ([id number]) on 08/20/2018 10:32:44 PM Referred By: CLARISSE Confirmed By:Karla BILLS
--- NOTE | 2018-08-20 22:40 | EKG ---
Test Reason : STAT Blood Pressure : / mmHG Vent. Rate : 149 BPM Atrial Rate : 298 BPM P-R Int : 000 ms QRS Dur : 078 ms QT Int : 278 ms P-R-T Axes : -62 -10 163 degrees QTc Int : 437 ms Atrial flutter with 2:1 A-V conduction Posterior infarct (cited on or before 14-AUG-2018) Marked ST abnormality, possible lateral subendocardial injury ACUTE IN / STEMI Abnormal ECG When compared with ECG of 17-AUG-2018 09:47, (Unconfirmed) Significant changes have occurred Confirmed by Karla BILLS ([id number]) on 08/20/2018 10:40:38 PM Referred By: ROOSEVELT Confirmed By:Karla BILLS
--- NOTE | 2018-08-20 22:48 | EKG ---
Test Reason : Blood Pressure : / mmHG Vent. Rate : 080 BPM Atrial Rate : 080 BPM P-R Int : 138 ms QRS Dur : 086 ms QT Int : 432 ms P-R-T Axes : 032 050 091 degrees QTc Int : 498 ms Normal sinus rhythm Possible Left atrial enlargement Inferior-posterior infarct , possibly acute T wave abnormality, consider lateral ischemia ACUTE PR / STEMI Consider right ventricular involvement in acute inferior infarct Abnormal ECG When compared with ECG of 17-AUG-2018 23:27, (Unconfirmed) Significant changes have occurred Confirmed by Karla BILLS ([id number]) on 08/20/2018 10:47:48 PM Referred By: NEGAR Confirmed By:Karla BILLS
[2018-08-21] MEDS: Amiodarone 450 MG, Admixture Fee 1 EACH in Dextrose 5% in Water 250 ML IVPB SCH (02:56)
[2018-08-21 06:06] LABS: Anion Gap 9 mmol/L (10-20); BUN (Urea Nitrogen) 12 mg/dL (8.4-25.7); Calc. Creatinine Clearance 99 mL/min (70-130); Calcium 8.4 mg/dL (7.8-10.44); Carbon Dioxide 28 mmol/L (23-31); Chloride 99 mmol/L (98-107); Estimated GFR-MDRD Greater than 90; Glucose 92 mg/dL (80-115); Sodium 132 mmol/L (136-145)
[2018-08-21] MEDS: Budesonide 0.5 MG/2 ML NEB NEB SCH ×2 (07:10→18:22)
[2018-08-21] MEDS: Carvedilol 6.25 MG TAB PO SCH ×2 (09:53→17:34)
[2018-08-21] MEDS: Aspirin Chewable 81 MG TAB PO SCH (09:54)
[2018-08-21] MEDS: cefTRIAXone\\ROCEPHIN 1 GM in Sodium Chloride 0.9% 100 ML IVPB SCH (09:54)
[2018-08-21] MEDS: Multivitamin W/ Minerals 1 TAB PO SCH (09:55)
[2018-08-21] MEDS: Thiamine 100 MG TAB PO SCH (09:55)
[2018-08-21] MEDS: Clopidogrel Bisulfate 75 MG TAB PO SCH (09:55)
[2018-08-21] MEDS: HumuLIN 70/30 (300 UNITS/3 ML VIAL) SC SCH ×2 (09:55→20:39)
[2018-08-21] MEDS: Folic Acid 1 MG TAB PO SCH (09:55)
[2018-08-21] MEDS: Lisinopril 20 MG TAB PO SCH (09:55)
[2018-08-21] MEDS: Magnesium Oxide 400 MG TAB PO SCH (09:55)
--- NOTE | 2018-08-21 10:19 | PRG ---
DATE OF SERVICE: 08/21/2018 INTERVAL HISTORY: The patient is doing really well from respiratory standpoint. He was not coughing up any blood, but had a couple small episodes of hemoptysis last night. It subsequently resolved once again. He denies any current fevers or chills. He wears BiPAP last night. There were no significant respiratory events noted. PHYSICAL EXAMINATION: VITAL SIGNS: Afebrile, pulse 80, blood pressure 137/76, respirations 26, and saturation 96% on room air. GENERAL: The patient is awake and alert, in no apparent distress. LUNGS: Decent air entry. No prolonged expiratory phase or wheezing is appreciated. Dependent crackles are minimal. HEART: Normal rate and regular. ABDOMEN: Soft, nontender, nondistended. Bowel sounds are positive. MUSCULOSKELETAL: No cyanosis or clubbing. He has [place] edema of the right upper extremity, which is new, and some left upper extremity tenderness/swelling as well. No edema is present in bilateral lower extremities. : No Solorzano. NEUROLOGIC: Grossly nonfocal. LABORATORY DATA: Sodium 132. Basic metabolic profile is otherwise unremarkable. Blood cultures x2 are unremarkable. IMAGING DATA: Echocardiogram demonstrates normal ejection fraction. There is an inferoposterior akinesis. Mildly elevated right atrium and left atrium. Moderate mitral regurgitation is noted. ASSESSMENT: 1. Pulmonary nodule, status post brushing and bronchoalveolar lavage, negative for malignancy. 2. Hemoptysis, improving slowly. 3. Acute myocardial infarction, status post bare-metal stent to the circumflex. 4. Paroxysmal atrial fibrillation. 5. Intermittent episodes of hypertension, resulting in respiratory failure. 6. Mitral regurgitation. DISCUSSION AND PLAN: The patient is doing absolutely wonderful from respiratory standpoint. We will try to maintain good control of his blood pressure. He is back into a sinus rhythm. I would like to keep him off BiPAP for the next 24 hours to see whether or not he will be ready for transition out of the ICU/hospital. Pulmonary/Critical Care will continue to follow along. Ultimately, repeat imaging is going to be performed in 3 months with an additional sampling procedure if indicated. Job ID: [id number]
--- NOTE | 2018-08-21 11:32 | ULT ---
EXAM: US Venous Doppler Bilat PROVIDED CLINICAL HISTORY: Bilateral arm swelling/edema, right greater than left at the level of the mid forearm. COMPARISON: None available. FINDINGS: Grayscale, color-flow, Doppler evaluation, and spectral analysis of the bilateral upper extremity toñito ous structures is performed with 2-D imaging. There is normal compressibility and flow seen within the bilateral upper extremity internal jugular, axillary, and brachial as well as ulnar and radial veins. Normal flow is seen within the subclavian veins bilaterally. There is increased luminal echogenicity and decreased lumen compressibility as well as absence of chris w seen within the right upper extremity basilic vein from the level of the mid upper arm to the level of the lower forearm. There is also a small amount of echogenic material and decreased lumen co mpressibility seen in the right upper extremity cephalic vein from the level of the antecubital fossa to the level of the mid forearm There is normal luminal compressibility and flow seen within the left upper extremity basilic and cep halic veins. IMPRESSION: 1. Occlusive thrombus within the right upper extremity basilic vein which is a superficial vein. Ther e is also nonocclusive thrombus within a segment of the right upper extremity cephalic vein. This is also a superficial vein. 2. No evidence of a DVT involving the visualized deep venous structures of the bilateral upper extrem ities. 3. Results of this examination were verbally discussed with Della, the nurse on the hospital floor by Monae Hicks the time study technologist on 08/21/2018 at 1113 hours.
[2018-08-21] MEDS ORDERED: Enoxaparin Sodium 80 MG/0.8 ML SYRINGE SC SCH (11:45)
--- NOTE | 2018-08-21 15:25 | PDOC.CTH ---
Cardiology Progress Note - Subjective Continues to have hemoptysis over night. He had swelling of both hands. - Objective Vital Signs Temp Pulse Resp BP Pulse Ox 08/21/18 15:07 98.6 F 08/21/18 12:00 128/88 08/21/18 10:44 99.3 F 08/21/18 09:55 130/92 H 08/21/18 09:53 130/92 H 08/21/18 08:00 130/92 H 08/21/18 07:11 97.5 F L 08/21/18 07:10 76 18 98 08/21/18 04:16 99.3 F 08/21/18 04:00 130/92 H Admit Weight 144 lb Weight 157 lb 2 oz 08/20/18 08/21/18 08/22/18 06:59 06:59 06:59 Intake Total 2055 1750.8 Output Total 1355 950 Balance 700 800.8 - Physical Examination General/Neuro: alert & oriented x3, NAD Neck: no JVD present Lungs: CTA, unlabored respirations Heart: RRR Abdomen: NT/ND Extremities: other: (no edema) - Telemetry Telemetry Rhythm: NSR - Labs Result Diagrams: 08/19/18 05:49 08/21/18 05:17 Troponin/CKMB CK-MB (CK-2) 7.1 ng/mL (0-6.6) H* 08/20/18 11:00 Troponin I 8.994 ng/mL (< 0.028) H* 08/20/18 11:00 - Assessment/Plan 1. Acute inferior STEMI 2. S/P BMS to LCx. 3. Hemoptysis. 4. Pulmonary nodule 5. Type 2 diabetes, new onset. 6. Post [place] afib. 7. Basilic vein thrombosis. PLAN: - He received a dose of full dose lovenox this morning given his basillic vein thrombosis. - Will plan on continuing Plavix and aspirin until September 13, then switch to Eliquis alone for a total of 3 months and then Aspirin alone [facility]. - Continue BB and ACEI - High dose statins. - Continues to have hemoptysis, may have to discontinue full dose lovenox. - Switch amiodarone to PO load. . - BiPAP taken off this morning. - Home tomorrow if he remains stable.
[2018-08-21] MEDS: Atorvastatin Calcium 40 MG TAB PO SCH (20:38)
[2018-08-21] MEDS: Amiodarone 200 MG TAB PO SCH (20:38)
[2018-08-21] MEDS: Enoxaparin Sodium 80 MG/0.8 ML SYRINGE SC SCH (20:39)
[2018-08-22 05:16] LABS: Anion Gap 11 mmol/L (10-20); BUN (Urea Nitrogen) 13 mg/dL (8.4-25.7); Calc. Creatinine Clearance 92 mL/min (70-130); Calcium 8.5 mg/dL (7.8-10.44); Carbon Dioxide 28 mmol/L (23-31); Chloride 102 mmol/L (98-107); Estimated GFR-MDRD Greater than 90; Glucose 106 mg/dL (80-115); Potassium 3.7 mmol/L (3.5-5.1); Sodium 137 mmol/L (136-145)
[2018-08-22] MEDS: Budesonide 0.5 MG/2 ML NEB NEB SCH (07:44)
[2018-08-22] MEDS: cefTRIAXone\\ROCEPHIN 1 GM in Sodium Chloride 0.9% 100 ML IVPB SCH (09:43)
[2018-08-22] MEDS: Enoxaparin Sodium 80 MG/0.8 ML SYRINGE SC SCH (09:43)
[2018-08-22] MEDS: Amiodarone 200 MG TAB PO SCH (09:44)
[2018-08-22] MEDS: Lisinopril 20 MG TAB PO SCH (09:44)
[2018-08-22] MEDS: Folic Acid 1 MG TAB PO SCH (09:44)
[2018-08-22] MEDS: Aspirin Chewable 81 MG TAB PO SCH (09:44)
[2018-08-22] MEDS: Magnesium Oxide 400 MG TAB PO SCH (09:44)
[2018-08-22] MEDS: Clopidogrel Bisulfate 75 MG TAB PO SCH (09:44)
[2018-08-22] MEDS: Carvedilol 6.25 MG TAB PO SCH (09:44)
[2018-08-22] MEDS: HumuLIN 70/30 (300 UNITS/3 ML VIAL) SC SCH (09:45)
[2018-08-22 11:53] VITALS: TEMP 98.4
[2018-08-22 13:15] VITALS: BP 126/76
[2018-08-22 13:35] VITALS: BMI 25.2
--- NOTE | 2018-08-22 14:59 | DIS ---
DATE OF ADMISSION: 08/14/2018 DATE OF DISCHARGE: 08/22/2018 PRIMARY DIAGNOSES: 1. Inferior ST-elevation myocardial infarction. 2. New onset diabetes. 3. Status post bare-metal stent to the left circumflex. 4. Hemoptysis. 5. Pulmonary nodule. 6. Post myocardial infarction atrial fibrillation. 7. Basilic vein thrombosis. PROCEDURES PERFORMED: 1. Bare-metal stent to the left circumflex since his heart catheterization. 2. Echocardiogram. 3. Chest x-ray. 4. CT of the chest. 5. Pulmonary consultation. 6. Internal medicine consultation. HOSPITAL COURSE: Mr. Medley is a 62-year-old gentleman, who came to the hospital for chest pain. He was found to have inferior ST-elevation VA. He was brought to the catheterization lab, where he was found to have an occluded left circumflex. This was stented successfully with a bare-metal stent. He had developed hemoptysis the afternoon when he presented to the hospital, so that is why bare-metal stent was chosen. His hemoptysis was evaluated with a CT. They found a small nodule in the right upper lobe. Lavage of this done by Dr. Terrell with Pulmonary, showed benign findings. He was kept on Plavix and aspirin. In the next few days, he continued to have hemoptysis and episodes of worsening pulmonary edema despite a normal heart function. He had ultrasound of his upper extremities, which showed thrombosis on the superficial veins. There was a concern that he kept throwing a little blood clots to the lung causing him to have hemoptysis, so he was started on full anticoagulation with Lovenox. He tolerated this well. He has been switched to Eliquis on discharge. For discharge medications, please see discharge paperwork. He was also found to have new onset diabetes, so Internal Medicine Service was consulted and he will be discharged home on insulin 70/30 for this, much better control now. Sugars in the 90s. Followup appointments already scheduled in 1 month with myself, in [address] Terrell, in 2 weeks with PCP. Over 45 minutes was spent at bedside counseling for discharge. Job ID: [id number]
--- NOTE | 2018-08-22 15:44 | PRG ---
DATE OF SERVICE: 08/22/2018 SERVICE: Pulmonary Medicine. INTERVAL HISTORY: The patient did not have any additional hemoptysis overnight. Denies any current chest pain, fevers, or chills. That being said, he woke up in night sweat. When they got to check his temperature, his temperature was normal. That being said, the nurse speculated that he probably had an undocumented fever. Otherwise, he feels fantastic. He has a little bit of a cough and brought up some hemoptysis. All of this was old blood as of yesterday. He has not had any additional hemoptysis today. PHYSICAL EXAMINATION: VITAL SIGNS: Afebrile. Pulse 79, blood pressure 147/92, respirations 20, saturation 91% on room air. GENERAL: The patient is awake and alert, in no apparent distress. LUNGS: Decent air entry. Rhonchi are present. No prolonged expiratory phase or wheezing is appreciated. HEART: Normal rate and regular. ABDOMEN: Soft, nontender, nondistended. Bowel sounds are positive. MUSCULOSKELETAL: No cyanosis or clubbing. There is no pitting in the bilateral lower extremities. NEUROLOGIC: Grossly nonfocal. LABORATORY DATA: Basic metabolic profile is completely unremarkable. Blood cultures x2 are negative. IMAGING: Ultrasound of the upper extremity show multiple areas, in which there are clots. Some are in deep venous structures. ASSESSMENT: 1. Pulmonary nodule, status post brushing and bronchoalveolar lavage, negative for malignancy. 2. Hemoptysis, improving. 3. Acute myocardial infarction, status post bare-metal stent to the circumflex. 4. Paroxysmal atrial fibrillation. 5. Deep venous thrombosis. 6. Recurrent episodes of respiratory failure associated with hypertensive events , absent for over 24 hours. DISCUSSION AND PLAN: At this point, hemoptysis is resolving. We will wean the oxygen away. If he is on room air and can walk around, he can be considered for transition home today. Because of the elevated fever, we will give him a 5-day course of Augmentin. If he has any increasing respiratory difficulties in the outpatient setting, he will notify me. He will return to the emergency department if he has any significant hemoptysis. He understands that more than 3 tablespoons of blood in any one setting, is considered significant in my opinion and should prompt him to present to the emergency department. Otherwise, he is stable for transition out of the hospital today. Ultimately, my plan is to repeat a CT of the chest in 3 months. Job ID: [id number] MTDD
[2018-08-22] MEDS ORDERED: Apixaban 5 MG TAB PO SCH (21:00)
[2018-08-23 19:08] LABS: Metanephrine,Plasma 38 pg/mL (0-62); Normetanephrine,Pl 239 pg/mL (0-145)
== END 2018-08-22 14:04 | disposition home or self-care (01) | DRG 248 ==
LOC: ERS 20:26 → CCU 21:54 → 2NO 08-18 11:11 → CCU 08-18 22:30 → IMCU/EMU 08-20 13:55
PROVIDERS: ADMIT Internal Medicine Cardiovascular Disease; ATTEND Internal Medicine Cardiovascular Disease
PROC: 02703DZ Dilation of Coronary Artery, One Artery with Intraluminal Device, Percutaneous Approach (ICD-10-PCS; principal; 2018-08-14)
PROC: 02C03ZZ Extirpation of Matter from Coronary Artery, One Artery, Percutaneous Approach (ICD-10-PCS; 2018-08-14)
PROC: 4A023N7 Measurement of Cardiac Sampling and Pressure, Left Heart, Percutaneous Approach (ICD-10-PCS; 2018-08-14)
PROC: B2111ZZ Fluoroscopy of Multiple Coronary Arteries using Low Osmolar Contrast (ICD-10-PCS; 2018-08-14)
PROC: B2151ZZ Fluoroscopy of Left Heart using Low Osmolar Contrast (ICD-10-PCS; 2018-08-14)
PROC: 0B9G8ZX Drainage of Left Upper Lung Lobe, Via Natural or Artificial Opening Endoscopic, Diagnostic (ICD-10-PCS; 2018-08-16)
PROC: 0BDG8ZX Extraction of Left Upper Lung Lobe, Via Natural or Artificial Opening Endoscopic, Diagnostic (ICD-10-PCS; 2018-08-16)
PROC: 5A09357 Assistance with Respiratory Ventilation, Less than 24 Consecutive Hours, Continuous Positive Airway Pressure (ICD-10-PCS; 2018-08-18)
DX: I21.19 ST elevation (STEMI) myocardial infarction involving other coronary artery of inferior wall (principal); J96.00 Acute respiratory failure, unspecified whether with hypoxia or hypercapnia; R04.2 Hemoptysis; I82.619 Acute embolism and thrombosis of superficial veins of unspecified upper extremity; R91.1 Solitary pulmonary nodule; E11.9 Type 2 diabetes mellitus without complications; I10 Essential (primary) hypertension; F17.210 Nicotine dependence, cigarettes, uncomplicated; I48.0 Paroxysmal atrial fibrillation; I34.0 Nonrheumatic mitral (valve) insufficiency; Z91.14 Patient's other noncompliance with medication regimen
CPT/HCPCS: 36415; 36416; 71045; 71275; 80048; 80053; 80306; 82248; 82553; 82805; 83735; 83835; 84443; 84484; 85014; 85018; 85025; 86780; 87040; 88112; 88305; 93005; 93010; 93306; 93798; 93970; 94640; 94660; C1757; C1769; C1887; J0282; J0360; J0696; J1650; J1815; J1940; J2060; J2270; J2405; J2704; J3010; J3411; J3490; J7042; J7070; J7620; J7626; Q9966

== ENCOUNTER → 2018-08-14 | Day surgery (SDC) | payer MEDICARE | LOC: CCL 13:34 | PROVIDERS: ATTEND Internal Medicine Cardiovascular Disease | DX: I21.3 ST elevation (STEMI) myocardial infarction of unspecified site (principal) | CPT/HCPCS: 85347; 92943; 93458 ==

== ENCOUNTER 2018-08-23 07:17 | Inpatient (IN) | payer MEDICARE ==
[2018-08-23 07:40] LABS: #Basophils 0.1 thou/uL (0.0-0.2); #Eosinphils 0.1 thou/uL (0.0-0.7); #Lymphocytes 2.1 thou/uL (1.20-3.40); #Monocytes 1.3 thou/uL (0.11-0.59); #Neutrophils 12.5 thou/uL (1.40-6.50); %Basophils 0.3 % (0.0-1.0); %Eosinophils 0.8 % (0.0-10.0); %Lymphocytes 12.9 % (21.0-51.0); %Monocytes 7.8 % (0.0-10.0); %Neutrophils 78.2 % (42.0-75.0); Hemoglobin 9.5 g/dL (14.0-18.0); Mean Corpuscular HGB CONC 31.7 g/dL (32.0-36.0); Mean Corpuscular Hemoglobin 30.1 pg (27.0-31.0); Mean Platelet Volume 7.3 fL (7.4-10.4); Platelet Count 395 thou/uL (130-400); RBC Distribution Width 11.5 % (11.5-14.5); Red Blood Cell (RBC) Count 3.16 mill/uL (4.70-6.10); White Blood Cell (WBC) Count 15.9 thou/uL (4.8-10.8)
--- NOTE | 2018-08-23 07:47 | RAD ---
Chest AP view INDICATION: JOANNA DE alert COMPARISON: Prior exam dated 08/19/2018 FINDINGS:Since the comparison examination, there is worsening cardiopulmonary with pulmonary vascular congestion and perihilar edema. There is small moderate right and mild left pleural effusions. No pneumothorax is evident. IMPRESSION: Findings suggesting worsening CHF
[2018-08-23 08:02] LABS: Bilirubin Negative (Negative); Blood, Urine Trace (Negative); Clarity CLOUDY (Clear); Glucose, Urine (Dipstick) 100 mg/dL (Negative); Leukocyte Negative (Negative); Nitrite Negative (Negative); Protein, Urine (Dipstick) 30 mg/dL (Neg-Trace); Specific Gravity, Urine 1.013 (1.002-1.036)
[2018-08-23 08:02] LABS: INR-International Normal Ratio 1.2; Prothrombin Time 15.2 SEC (12.0-14.7)
[2018-08-23] MEDS ORDERED: Lorazepam 2 MG/ML VIAL ONE (08:02)
[2018-08-23 08:03] LABS: RBC/HPF 0-3 HPF (0-3); WBC/HPF 0-3 HPF (0-3)
[2018-08-23] MEDS ORDERED: Furosemide 40 MG/4 ML VIAL ONE (08:04)
[2018-08-23 08:09] LABS: Pathc Cast-AUWi Flag 6.52 (0-2.49)
[2018-08-23 08:09] LABS: PTT 128.5 SEC (22.9-36.1)
[2018-08-23 08:13] LABS: Actual Bicarbonate (HCO3a) 26.3 mEq/L (22-28); Analyzer IN Cardio ER; Base Excess (BEa) -3.4 mEq/L (-2.0 to +3.0); Calcium, Ionized 1.15 mmol/L (1.12-1.30); Carboxyhemoglobin (COHb) 1.4 gm% (0.0-3.0); Hemoglobin (Hb) 10.7 g/dL (14.0-18.0); O2 Tension (PaO2) 62.8 mmHg (> 80.0); Potassium - ABG Lab 4.33 mmol/L (3.70-5.30)
[2018-08-23 08:14] LABS: Amphetamine Not Detected (NotDetected); Barbiturates Screen Not Detected (NotDetected); Benzodiazepine Screen Not Detected (NotDetected); Cocaine Metabolite Screen Not Detected (NotDetected); Medtox Control Line Valid? VALID (VALID); Medtox Reader # READER 1; Methadone Not Detected (NotDetected); Methamphetamine Not Detected (NotDetected); Opiate Screen Not Detected (NotDetected); Oxycodone Screen Not Detected (NotDetected); Phencyclidine (PCP) Not Detected (NotDetected); THC/Cannabinoid Screen Detected (NotDetected); Tricyclic Screen Not Detected (NotDetected)
[2018-08-23 08:16] LABS: ALT (SGPT) 30 U/L (8-55); AST (SGOT) 60 U/L (5-34); Albumin 3.1 g/dL (3.4-4.8); Alkaline Phosphatase 192 U/L (40-150); Anion Gap 13 mmol/L (10-20); BUN (Urea Nitrogen) 14 mg/dL (8.4-25.7); Bilirubin, Total 0.5 mg/dL (0.2-1.2); Calc. Creatinine Clearance 0 mL/min (70-130); Calcium 8.2 mg/dL (7.8-10.44); Carbon Dioxide 24 mmol/L (23-31); Chloride 101 mmol/L (98-107); Estimated GFR-MDRD 83; Globulin 3.2 g/dL (2.4-3.5); Glucose 242 mg/dL (80-115); Potassium 4.7 mmol/L (3.5-5.1); Protein, Total 6.3 g/dL (5.8-8.1); Sodium 133 mmol/L (136-145)
[2018-08-23 08:17] LABS: Critical Call Chem Troponin I RESULT DECREASING
[2018-08-23 08:22] LABS: Bacteria/HPF Rare-Few HPF (None Seen); Other Casts/LPF None Seen LPF (0-3 Hyaline); Yeast-All Forms None Seen HPF (None Seen)
[2018-08-23 08:23] LABS: Crystals/HPF 1+ AMORPH URATES HPF (Negative)
[2018-08-23 08:30] LABS: Acetaminophen Less than 6.0 mcg/mL (10.0-30.0); Alcohol Less than 10 mg/dL (Less than 10); CK (CPK) 76 U/L (30-200); Salicylate Less than 8.0 mg/dL (15.0-30.0)
[2018-08-23 08:36] LABS: CKMB 1.4 ng/mL (0-6.6)
[2018-08-23 08:37] LABS: CO2 Tension 75.4 mmHg (35.0-45.0); Puncture Site L.R.; pH, Arterial 7.16 (7.35-7.45)
--- NOTE | 2018-08-23 09:03 | CT ---
CT Brain WO Con HISTORY: Altered mental status chest pain. COMPARISON: None. FINDINGS: The ventricular and cisternal system is within normal limits. There is no signs intracerebr al hemorrhage or extra-axial fluid collections. The mastoid air cells and visualized sinuses are clear. IMPRESSION: No acute intracranial abnormalities.
[2018-08-23 09:20] LABS: Iron 32 ug/dL (65-175); Iron Binding Capacity, Total 214 mcg/dL (261-462)
[2018-08-23] MEDS ORDERED: Bisacodyl 5 MG TAB PO PRN (09:48)
[2018-08-23] MEDS ORDERED: Dextrose 5% in Water 1,000 ML IV PRN (10:52)
[2018-08-23] MEDS ORDERED: Dextrose 50% Abboject 50 ML SYRINGE SLOW IVP PRN (10:52)
[2018-08-23 11:13] VITALS: BMI 23.3
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
[2018-08-23 12:48] LABS: Free T4 (Free Thyroxine) 0.97 ng/dL (0.70-1.48)
[2018-08-23] MEDS ORDERED: Furosemide 20 MG/2 ML VIAL SLOW IVP SCH (14:00)
[2018-08-23 14:51] LABS: Critical Call Chem Troponin I RESULT DECREASING; Troponin I 4.963 ng/mL (< 0.028)
--- NOTE | 2018-08-23 15:05 | CON ---
DATE OF CONSULTATION: CORRECTION: . Job ID: [id number]
--- NOTE | 2018-08-23 17:17 | CON ---
DATE OF CONSULTATION: 08/23/2018 HISTORY OF PRESENT ILLNESS: The patient is a 62-year-old gentleman, who presented with acute onset of dyspnea. The patient was recently admitted with an inferior wall myocardial infarction and underwent emergent cardiac catheterization. He underwent PTCA and stent placement to the right coronary artery. The patient also had difficulty, where he developed basilic vein thrombosis and postoperative atrial fibrillation. The patient was treated on amiodarone. He was also started on Eliquis, Plavix, and aspirin. The patient also suffered from hemoptysis during his hospitalization. The patient went home and presented with acute onset of dyspnea. He denied having any chest discomfort. PAST MEDICAL HISTORY: Significant for; 1. Coronary artery disease. 2. Atrial fibrillation. 3. Basilic vein thrombosis. 4. Hypertension. 5. Hemoptysis. 6. Diabetes mellitus. PAST SURGICAL HISTORY: He has had abdominal surgery. MEDICATIONS: Include: 1. Lisinopril 20 daily. 2. Amiodarone 400 mg p.o. b.i.d. 3. Apixaban 5 mg p.o. b.i.d. 4. Aspirin 81 daily. 5. Lipitor 80 at bedtime. 6. Coreg 6.25 mg p.o. b.i.d. 7. Plavix 75 daily. 8. Insulin. SOCIAL HISTORY: The patient continues to smoke and use marijuana. FAMILY HISTORY: No strong family history of coronary artery disease. PHYSICAL EXAMINATION: GENERAL: This is an ill-appearing gentleman, in mild distress. VITAL SIGNS: His blood pressure was 105/84. NECK: No jugular venous distention. LUNGS: Crackles throughout both lung aguiar. HEART: Regular rate and rhythm. Normal S1, S2. ABDOMEN: Nondistended. EXTREMITIES: Showed no edema. VASCULAR: Radial pulses 2+. LABORATORY DATA: White blood count 15.9, hemoglobin 9.5, hematocrit 30.0, and platelets 395. Sodium was 133, potassium 4.7, chloride 101, bicarb 24, BUN 14, creatinine 1.09, glucose 242. Troponin was 6.0. BNP was 706. White blood cell count 15.9, hemoglobin 9.5, hematocrit 30.0, and platelets 395. His EKG revealed normal sinus rhythm with ST elevation suggestive of an inferolateral myocardial infarction. IMPRESSION: 1. Congestive heart failure. 2. Status post inferior wall myocardial infarction with stent placement in the right coronary artery. 3. Diabetes mellitus. 4. Hypertension. 5. Basilic vein thrombosis. 6. Pulmonary nodule. this gentleman presents with new onset congestive heart failure. The patient is being diuresed with IV Lasix. The patient will be continued on lisinopril and Coreg. We would add spironolactone to the patient's medical regimen. We will recheck an echocardiogram. We will follow this patient with you through his hospitalization. Critical care note, time, 30 minutes. Job ID: [id number]
[2018-08-23] MEDS: Carvedilol 3.125 MG TAB PO SCH (17:24)
[2018-08-23 17:50] LABS: Critical Call Chem Troponin I RESULT DECREASING; Troponin I 4.782 ng/mL (< 0.028)
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
[2018-08-23] MEDS: Atorvastatin Calcium 40 MG TAB PO SCH (20:53)
[2018-08-23] MEDS: Amiodarone 200 MG TAB PO SCH (20:53)
[2018-08-23] MEDS: Lisinopril 2.5 MG TAB PO SCH (20:53)
[2018-08-23] MEDS: HumaLOG 300 UNITS/3 ML VIAL SC PRN (20:58)
[2018-08-24 04:39] LABS: #Basophils 0.1 thou/uL (0.0-0.2); #Eosinphils 0.1 thou/uL (0.0-0.7); #Lymphocytes 1.4 thou/uL (1.20-3.40); #Monocytes 0.8 thou/uL (0.11-0.59); #Neutrophils 7.5 thou/uL (1.40-6.50); %Basophils 0.6 % (0.0-1.0); %Eosinophils 0.6 % (0.0-10.0); %Lymphocytes 14.3 % (21.0-51.0); %Monocytes 8.2 % (0.0-10.0); %Neutrophils 76.4 % (42.0-75.0); Hemoglobin 9.8 g/dL (14.0-18.0); Mean Corpuscular HGB CONC 31.8 g/dL (32.0-36.0); Mean Corpuscular Hemoglobin 30.1 pg (27.0-31.0); Mean Corpuscular Volume 94.8 fL (78.0-98.0); Platelet Count 403 thou/uL (130-400); RBC Distribution Width 11.5 % (11.5-14.5); Red Blood Cell (RBC) Count 3.25 mill/uL (4.70-6.10); White Blood Cell (WBC) Count 9.8 thou/uL (4.8-10.8)
[2018-08-24 04:55] LABS: Anion Gap 12 mmol/L (10-20); BUN (Urea Nitrogen) 17 mg/dL (8.4-25.7); Calc. Creatinine Clearance 89 mL/min (70-130); Calcium 8.6 mg/dL (7.8-10.44); Carbon Dioxide 28 mmol/L (23-31); Chloride 101 mmol/L (98-107); Estimated GFR-MDRD Greater than 90; Glucose 149 mg/dL (80-115); Potassium 4.3 mmol/L (3.5-5.1); Sodium 137 mmol/L (136-145)
[2018-08-24 04:57] LABS: ALT (SGPT) 23 U/L (8-55); AST (SGOT) 25 U/L (5-34); Alkaline Phosphatase 153 U/L (40-150); Bilirubin, Direct 0.3 mg/dL (0.1-0.3); Bilirubin, Total 0.5 mg/dL (0.2-1.2); Protein, Total 5.9 g/dL (5.8-8.1)
[2018-08-24] MEDS: Furosemide 40 MG/4 ML VIAL SLOW IVP SCH ×2 (05:39→15:08)
[2018-08-24] MEDS: Spironolactone 25 MG TAB PO SCH (08:04)
[2018-08-24] MEDS: Clopidogrel Bisulfate 75 MG TAB PO SCH (08:04)
[2018-08-24] MEDS: Lisinopril 2.5 MG TAB PO SCH ×2 (08:04→10:52)
[2018-08-24] MEDS: Aspirin 81 mg Enteric Coated Tablet PO SCH (08:05)
[2018-08-24] MEDS: Carvedilol 3.125 MG TAB PO SCH ×2 (08:05→10:52)
[2018-08-24] MEDS: Amiodarone 200 MG TAB PO SCH ×2 (08:05→19:52)
--- NOTE | 2018-08-24 09:26 | PRG ---
DATE OF SERVICE: 08/24/2018 SUBJECTIVE: He feels better, has no chest pain or shortness of breath at current time. OBJECTIVE: VITAL SIGNS: Temperature 99.1, pulse 80, blood pressure 137/81, and O2 saturation 97%. HEENT: Unremarkable. NECK: No JVD. LUNGS: Clear posteriorly. CARDIAC: S1 and S2 regular with 2/6 systolic murmur. ABDOMEN: Soft and nontender. EXTREMITIES: No edema. LABORATORY DATA: Sodium 137, potassium 4.3, BUN 17, creatinine 0.9, and glucose 149. White blood cell count 9.8, hematocrit 30, and platelet count 403. ASSESSMENT: 1. Acute diastolic congestive heart failure. 2. Hypertension, out of control, requiring nitroglycerin drip. PLAN: The patient can be transferred out to telemetry for further care from Cardiology and Internal Medicine. No further Pulmonary recommendations at this time. We will be available as needed. Job ID: [id number]
[2018-08-24] MEDS ORDERED: Lisinopril 2.5 MG TAB PO SCH (09:42)
[2018-08-24] MEDS ORDERED: Carvedilol 3.125 MG TAB PO SCH (09:42)
[2018-08-24] MEDS ORDERED: Lisinopril 5 MG TAB PO SCH (09:45)
[2018-08-24] MEDS ORDERED: Carvedilol 6.25 MG TAB PO SCH (10:00)
[2018-08-24] MEDS: HumaLOG 300 UNITS/3 ML VIAL SC PRN ×3 (11:37→20:06)
[2018-08-24] MEDS: Carvedilol 6.25 MG TAB PO SCH (17:07)
--- NOTE | 2018-08-24 18:52 | PRG ---
DATE OF SERVICE: 08/24/2018 CHIEF COMPLAINT: Shortness of breath. HISTORY OF PRESENT ILLNESS: This is a 62-year-old male with history of coronary artery disease, recent NH with stenting, essential hypertension, paroxysmal atrial fibrillation, VTE, and diabetes, who came to the emergency department for worsening shortness of breath and dry cough. SUBJECTIVE: The patient is seen and evaluated at bedside. He refers breathing much better. He would like to go home soon. Per nurse, no acute events overnight. REVIEW OF SYSTEMS: All systems are reviewed and negative except for the ones mentioned above. PHYSICAL EXAMINATION: VITAL SIGNS: Blood pressure 128/63, pulse 67, respirations 16, oxygen saturation 99% on oxygen, temperature 98.1 degrees Fahrenheit. GENERAL: No distress. He is awake, alert, and oriented x3. HEAD AND NECK: Pupils are reactive to light. Extraocular muscles are intact. Mucous membranes are moist. Neck is supple. No JVD. CARDIOVASCULAR: Rhythm and rate are regular. No audible murmurs, rubs, or gallops. PULMONARY: No crackles. No wheezing or rhonchi. Clear to auscultation bilaterally. ABDOMEN: Soft, nontender, and nondistended. Positive bowel sounds. EXTREMITIES: Trace edema of the lower extremities. Range of motion is intact. SKIN: Normal moist and color. NEUROLOGIC: Cranial nerves 2 through 12 are grossly intact. Deep tendon reflexes are normoreflexic. LABORATORY DATA: Laboratory abnormalities: Hemoglobin 10, hematocrit 31. Glucose 149. Alkaline phosphatase 153. CURRENT MEDICATIONS: Reviewed. IMAGING STUDIES: Reports are reviewed. EKG: Reviewed. ASSESSMENT AND PLAN: 1. Acute respiratory failure with hypoxia secondary to pulmonary edema: Continue oxygen support and taper off when possible. 2. Acute pulmonary edema secondary to acute diastolic heart failure: It appears to be resolving. We will repeat chest x-ray in the morning. 3. Acute diastolic heart failure: Continue CHF protocol. It appears to be resolving. 4. Coronary artery disease: Recent stenting. 5. Paroxysmal atrial fibrillation: Continue amiodarone. 6. Essential hypertension: Currently at goal. 7. History of venous thromboembolism: Holding anticoagulation at this time due to recent episode of hemoptysis. 8. Controlled diabetes mellitus, type 2. CODE STATUS: Full code. CORE MEASURES: Sequential compression devices. DISPOSITION: Medical/Surgical unit on telemetry. PROGNOSIS: Guarded. CLINICAL STATUS: Guarded. EXPECTED DISCHARGE: In the next 48 hours. TOTAL TIME SPENT: 35 minutes. Job ID: [id number]
[2018-08-24] MEDS: Atorvastatin Calcium 40 MG TAB PO SCH (19:51)
[2018-08-24] MEDS: Lisinopril 5 MG TAB PO SCH (19:52)
[2018-08-25 05:07] LABS: #Basophils 0.1 thou/uL (0.0-0.2); #Eosinphils 0.1 thou/uL (0.0-0.7); #Lymphocytes 1.8 thou/uL (1.20-3.40); #Monocytes 0.8 thou/uL (0.11-0.59); #Neutrophils 6.4 thou/uL (1.40-6.50); %Basophils 0.6 % (0.0-1.0); %Eosinophils 0.6 % (0.0-10.0); %Lymphocytes 19.2 % (21.0-51.0); %Monocytes 9.2 % (0.0-10.0); %Neutrophils 70.4 % (42.0-75.0); Hemoglobin 9.8 g/dL (14.0-18.0); Mean Corpuscular HGB CONC 32.1 g/dL (32.0-36.0); Mean Corpuscular Hemoglobin 29.9 pg (27.0-31.0); Mean Corpuscular Volume 93.1 fL (78.0-98.0); Platelet Count 428 thou/uL (130-400); RBC Distribution Width 11.7 % (11.5-14.5); Red Blood Cell (RBC) Count 3.26 mill/uL (4.70-6.10); White Blood Cell (WBC) Count 9.1 thou/uL (4.8-10.8)
[2018-08-25 05:21] LABS: Anion Gap 12 mmol/L (10-20); BUN (Urea Nitrogen) 14 mg/dL (8.4-25.7); Calc. Creatinine Clearance 88 mL/min (70-130); Calcium 8.7 mg/dL (7.8-10.44); Carbon Dioxide 26 mmol/L (23-31); Chloride 102 mmol/L (98-107); Estimated GFR-MDRD Greater than 90; Glucose 194 mg/dL (80-115); Potassium 3.9 mmol/L (3.5-5.1); Sodium 136 mmol/L (136-145)
[2018-08-25] MEDS: HumaLOG 300 UNITS/3 ML VIAL SC PRN ×2 (06:19→12:23)
[2018-08-25] MEDS: Furosemide 40 MG/4 ML VIAL SLOW IVP SCH ×2 (06:19→14:04)
--- NOTE | 2018-08-25 09:16 | RAD ---
EXAM: CHEST ONE VIEW HISTORY: Pulmonary edema COMPARISON: 08/23/2018. FINDINGS: The cardiac silhouette and pulmonary vasculature is within normal limits. There is been interval impr ovement in the bilateral perihilar interstitial densities. Bilateral pleural effusions are again seen with associated atelectasis. Slightly greater degree of increased density at the right lung base which may relate to pleural fluid layering posteriorly. The osseous structures are intact. Vascular calcifications are seen in the thoracic aorta. IMPRESSION: Improvement in perihilar interstitial densities likely related to improvement in pulmonary edema. Pul monary vascular congestion has also resolved. Persistent bilateral pleural effusions are again noted. There is increased density again seen at the right lung base probably related to pleural fluid layering posteriorly, but continued follow-up to resolution is recommended.
[2018-08-25] MEDS: Clopidogrel Bisulfate 75 MG TAB PO SCH (09:17)
[2018-08-25] MEDS: Lisinopril 5 MG TAB PO SCH (09:17)
[2018-08-25] MEDS: Spironolactone 25 MG TAB PO SCH (09:18)
[2018-08-25] MEDS: Amiodarone 200 MG TAB PO SCH (09:18)
[2018-08-25] MEDS: Aspirin 81 mg Enteric Coated Tablet PO SCH (09:21)
[2018-08-25] MEDS: Carvedilol 6.25 MG TAB PO SCH (09:22)
[2018-08-25 11:48] VITALS: BP 131/77; TEMP 98
--- NOTE | 2018-08-26 01:39 | DIS ---
DATE OF ADMISSION: 08/23/2018 DATE OF DISCHARGE: 08/25/2018 ADMITTING PHYSICIAN: Dr. Valenzuela. DISCHARGING PHYSICIAN: Dr. Campuzano. PRIMARY CARE PHYSICIAN: Dr. Jaswinder Solitario. ADMITTING DIAGNOSES: 1. Acute respiratory failure with hypoxia and hypercapnia, suspected congestive heart failure exacerbation. 2. Diabetes mellitus type 2. 3. Nonspecific anemia. 4. Elevated TSH. 5. Marijuana use. 6. Hyponatremia (acute). 7. Abnormal liver function test. DISCHARGE DIAGNOSES: 1. Acute respiratory failure with hypoxia secondary to pulmonary edema. 2. Acute pulmonary edema secondary to acute diastolic heart failure (resolved). 3. Acute diastolic heart failure (resolved). 4. Coronary artery disease. 5. Paroxysmal atrial fibrillation. 6. Essential hypertension. 7. Acute hyponatremia: Resolved. 8. History of venous thromboembolism (we will discontinue Eliquis due to prior episode of hemoptysis until re-evaluated by his primary care physician). 9. Controlled diabetes mellitus type 2. CONSULT: Critical Care/Pulmonology. PROCEDURES: None. SPECIAL IMAGIN. Echocardiogram. 2. CT scan of the brain without contrast. HOSPITAL COURSE: This is a 62-year-old male with history of coronary artery disease with recent myocardial infarction and stenting, essential hypertension, paroxysmal atrial fibrillation, VTE, diabetes, who came to the emergency department for worsening shortness of breath and dry cough. He stated that he was very thirsty when he went back home after his PR and was drinking a lot of water. He was diagnosed with acute respiratory failure with hypoxia secondary to pulmonary edema secondary to acute diastolic heart failure. CHF protocol was implemented and the patient had a dramatic recovery in 48 hours. He is now tolerating room air in no respiratory distress. Blood pressure is controlled and the patient is ambulating and eating well. He is stable for discharge home. PHYSICAL EXAMINATION: VITAL SIGNS: Blood pressure 124/69, pulse 65, respirations 16, oxygen saturation 96% on room air, temperature 99.5 Fahrenheit. GENERAL: No distress. He is awake, alert, and oriented x3. HEAD AND NECK: Pupils are reactive to light. Extraocular muscles intact. Mucous membranes are moist. Neck is supple. No JVD. CARDIOVASCULAR: Rhythm and rate are regular. No audible murmurs, rubs, or gallops. PULMONARY: Clear to auscultation bilaterally. No wheezes, rhonchi, or crackles. ABDOMEN: Soft, nontender, nondistended, positive bowel sounds. EXTREMITIES: No palpable edema. Pulses are symmetric. SKIN: Normal moist and color. NEUROLOGIC: Cranial nerves 2 through 12 are grossly intact. Deep tendon reflexes are normoreflexic. LABORATORY ABNORMALITIES: Hemoglobin 10, hematocrit 30.4, glucose 190. Repeat chest x-ray report is reviewed. DISCHARGE DISPOSITION: Home with self care. DISCHARGE CONDITION: Stable. DISCHARGE DIET: Cardiac and diabetic diet as tolerated with fluid restriction recommended. DISCHARGE MEDICATIONS: See medical reconciliation for details. DISCHARGE ACTIVITY: Increase activity as tolerated. DISCHARGE INSTRUCTIONS: The patient was instructed to return to the emergency department if symptoms are worsened. Take his medications as directed and not to miss any appointments. FOLLOWUP: With primary manager retail store and primary care physician within one week. TIME OF DISCHARGE AND PLANNIN minutes. Job ID: [id number]
== END 2018-08-25 14:32 | disposition home or self-care (01) | DRG 280 ==
LOC: ERS 07:17 → CCU 11:00 → 2SE 08-24 10:22
PROVIDERS: ADMIT Internal Medicine; ATTEND Internal Medicine
PROC: 5A09357 Assistance with Respiratory Ventilation, Less than 24 Consecutive Hours, Continuous Positive Airway Pressure (ICD-10-PCS; principal; 2018-08-23)
DX: I11.0 Hypertensive heart disease with heart failure (principal); I21.4 Non-ST elevation (NSTEMI) myocardial infarction; J96.01 Acute respiratory failure with hypoxia; J96.02 Acute respiratory failure with hypercapnia; I50.31 Acute diastolic (congestive) heart failure; E87.1 Hypo-osmolality and hyponatremia; D64.9 Anemia, unspecified; F12.90 Cannabis use, unspecified, uncomplicated; E78.5 Hyperlipidemia, unspecified; F17.200 Nicotine dependence, unspecified, uncomplicated; I48.0 Paroxysmal atrial fibrillation; E11.9 Type 2 diabetes mellitus without complications; I25.10 Atherosclerotic heart disease of native coronary artery without angina pectoris; Z95.5 Presence of coronary angioplasty implant and graft; I25.2 Old myocardial infarction; Z79.02 Long term (current) use of antithrombotics/antiplatelets; Z86.718 Personal history of other venous thrombosis and embolism; Z79.82 Long term (current) use of aspirin; Z79.4 Long term (current) use of insulin; Z79.899 Other long term (current) drug therapy
CPT/HCPCS: 36415; 36416; 51701; 70450; 71045; 80048; 80053; 80076; 80306; 80307; 81003; 81015; 82550; 82553; 82728; 82805; 83540; 83550; 83605; 83735; 83880; 84439; 84443; 84481; 84484; 85025; 85610; 85730; 86850; 86900; 86901; 93005; 93306; 93798; 94640; 94660; 96365; 96366; 96374; 96375; J1940; J2060; J7620

== ENCOUNTER 2018-10-11 03:46 | Inpatient (IN) | payer MEDICARE ==
[2018-10-11] MEDS ORDERED: PROPOFOL 0 ML ONE (03:54)
[2018-10-11] MEDS ORDERED: Propofol 1,000 MG/100 ML VIAL IV ONE (03:55)
[2018-10-11 04:07] LABS: Actual Bicarbonate (HCO3a) 18.4 mEq/L (22-28); Analyzer IN Cardio ER; Base Excess (BEa) -14.2 mEq/L (-2.0 to +3.0); Carboxyhemoglobin (COHb) 2.4 gm% (0.0-3.0); Hemoglobin (Hb) 13.5 g/dL (14.0-18.0)
[2018-10-11 04:10] LABS: pH, Arterial 6.99 (7.35-7.45)
[2018-10-11 04:11] LABS: CO2 Tension 78.4 mmHg (35.0-45.0); Puncture Site LRA
[2018-10-11 04:12] LABS: #Basophils 0.1 thou/uL (0.0-0.2); #Eosinphils 0.1 thou/uL (0.0-0.7); #Lymphocytes 5.3 thou/uL (1.20-3.40); #Monocytes 0.7 thou/uL (0.11-0.59); %Basophils 0.7 % (0.0-1.0); %Eosinophils 0.5 % (0.0-10.0); %Monocytes 6.3 % (0.0-10.0); %Neutrophils 44.5 % (42.0-75.0); Hemoglobin 12.6 g/dL (14.0-18.0); Mean Corpuscular HGB CONC 30.2 g/dL (32.0-36.0); Mean Corpuscular Hemoglobin 29.6 pg (27.0-31.0); Mean Corpuscular Volume 97.9 fL (78.0-98.0); Mean Platelet Volume 7.6 fL (7.4-10.4); Platelet Count 271 thou/uL (130-400); RBC Distribution Width 12.8 % (11.5-14.5); Red Blood Cell (RBC) Count 4.25 mill/uL (4.70-6.10); White Blood Cell (WBC) Count 11.1 thou/uL (4.8-10.8)
[2018-10-11 04:18] LABS: INR-International Normal Ratio 1.1; PTT 35.4 SEC (22.9-36.1); Prothrombin Time 14.7 SEC (12.0-14.7)
[2018-10-11 04:32] LABS: Bilirubin Negative (Negative); Blood, Urine Large (Negative); Clarity CLOUDY (Clear); Glucose, Urine (Dipstick) 250 mg/dL (Negative); Leukocyte Negative (Negative); Nitrite Negative (Negative); Protein, Urine (Dipstick) Negative (Neg-Trace); Specific Gravity, Urine 1.011 (1.002-1.036)
[2018-10-11 04:33] LABS: Bacteria/HPF None Seen HPF (None Seen); Pathc Cast-AUWi Flag 2.31 (0-2.49); RBC/HPF 21-50 HPF (0-3)
[2018-10-11 04:35] LABS: Hyaline Casts/LPF 0-3 HYALINE CAST LPF (0-3 Hyaline); Oval Fat Bodies/HPF None Seen HPF (None Seen); Renal Epithelial 0-3 HPF (0-3); Sperm/HPF None Seen HPF (None Seen); Transitional Epithelial NONE SEEN HPF (0-3); Trichomonas/HPF None Seen HPF (None Seen); Yeast-All Forms None Seen HPF (None Seen)
[2018-10-11 04:37] LABS: ALT (SGPT) 164 U/L (8-55); AST (SGOT) 212 U/L (5-34); Acetaminophen Less than 6.0 mcg/mL (10.0-30.0); Albumin 3.7 g/dL (3.4-4.8); Alcohol Less than 10 mg/dL (Less than 10); Alkaline Phosphatase 189 U/L (40-150); Anion Gap 21 mmol/L (10-20); BUN (Urea Nitrogen) 13 mg/dL (8.4-25.7); Bilirubin, Total 0.3 mg/dL (0.2-1.2); Calc. Creatinine Clearance 0 mL/min (70-130); Calcium 8.5 mg/dL (7.8-10.44); Carbon Dioxide 19 mmol/L (23-31); Chloride 103 mmol/L (98-107); Estimated GFR-MDRD 62; Globulin 3.3 g/dL (2.4-3.5); Glucose 369 mg/dL (80-115); Magnesium 3.1 mg/dL (1.6-2.6); Salicylate Less than 8.0 mg/dL (15.0-30.0); Sodium 138 mmol/L (136-145)
[2018-10-11 04:41] LABS: Amphetamine Not Detected (NotDetected); Barbiturates Screen Not Detected (NotDetected); Benzodiazepine Screen Not Detected (NotDetected); Cocaine Metabolite Screen Not Detected (NotDetected); Medtox Control Line Valid? VALID (VALID); Medtox Reader # READER 4; Methadone Not Detected (NotDetected); Methamphetamine Not Detected (NotDetected); Opiate Screen Not Detected (NotDetected); Oxycodone Screen Not Detected (NotDetected); Phencyclidine (PCP) Not Detected (NotDetected); THC/Cannabinoid Screen Not Detected (NotDetected); Tricyclic Screen Not Detected (NotDetected)
[2018-10-11 04:54] LABS: CKMB 1.5 ng/mL (0-6.6)
[2018-10-11] MEDS ORDERED: Ventilator Sedation Protocol 1 EACH FS ONE (05:00)
[2018-10-11] MEDS ORDERED: fentaNYL Citrate/PF 2,000 MCG in Sodium Chloride 0.9% 60 ML IV SCH (05:01)
[2018-10-11] MEDS ORDERED: Propofol BOLUS 1,000 MG/100 ML VIAL IV PRN (05:01)
[2018-10-11] MEDS ORDERED: Fentanyl BOLUS 250 ML IVPB PRN (05:01)
[2018-10-11] MEDS ORDERED: Ondansetron PF 4 MG/2 ML Vial IVP PRN (05:02)
[2018-10-11] MEDS ORDERED: Acetaminophen 325 MG TAB PO PRN (05:02)
[2018-10-11] MEDS ORDERED: Ondansetron ODT 4 MG TAB PO PRN (05:02)
[2018-10-11] MEDS ORDERED: Acetaminophen 650 MG Suppository PR PRN (05:02)
[2018-10-11] MEDS ORDERED: Dextrose 50% Abboject 50 ML SYRINGE SLOW IVP PRN (05:09)
[2018-10-11] MEDS ORDERED: Dextrose 5% in Water 1,000 ML IV PRN (05:09)
[2018-10-11] MEDS ORDERED: Labetalol HCl 100 MG/20 ML VIAL SLOW IVP PRN (06:18)
[2018-10-11] MEDS: HumaLOG 300 UNITS/3 ML VIAL SC PRN ×3 (06:24→22:30)
[2018-10-11] MEDS: Lorazepam 2 MG/ML VIAL SLOW IVP PRN ×2 (06:25→10:03)
[2018-10-11 07:03] LABS: Actual Bicarbonate (HCO3a) 21.8 mEq/L (22-28); Base Excess (BEa) -3.3 mEq/L (-2.0 to +3.0); CO2 Tension 39.3 mmHg (35.0-45.0); Calcium, Ionized 1.11 mmol/L (1.12-1.30); Hemoglobin (Hb) 13.1 g/dL (14.0-18.0); O2 Tension (PaO2) 246.8 mmHg (> 80.0); Potassium - ABG Lab 4.46 mmol/L (3.70-5.30); pH, Arterial 7.36 (7.35-7.45)
[2018-10-11 07:07] LABS: ALV-art Gradient 417.075 (0-20); Puncture Site L.R.
--- NOTE | 2018-10-11 07:08 | CT ---
HEAD CT NONCONTRAST: Date: 10/11/18 INDICATION: Altered mental status. History of cardiac arrest, undergoing CPR> FINDINGS: Referencing 08/23/[address], no significant interval detrimental change is present. There is no intr acranial hemorrhage, mass effect, or midline shift. The ventricular system is age-appropriate in size . IMPRESSION: No acute intracranial hemorrhage or mass effect. POS: [facility]
--- NOTE | 2018-10-11 07:55 | RAD ---
Exam: Chest one view HISTORY:Status post intubation. Respiratory distress Comparison: 08/23/2018 FINDINGS: Cardiac silhouette: Normal Pulmonary vessels: Prominent. Costophrenic angles: Clear LUNGS: Diffuse interstitial and alveolar opacities, right hemithorax greater than the left. Lines and tubes: Endotracheal tube is beyond the clavicle. Nasogastric tube appears to terminate near the gastric cardia. Pneumothorax: None Osseous abnormalities: None IMPRESSION: 1. Diffuse interstitial and alveolar infiltrates. 2. Lines and tubes as above.
[2018-10-11 08:02] LABS: Troponin I 0.067 ng/mL (< 0.028)
--- NOTE | 2018-10-11 08:02 | CT ---
CT CHEST WITH CONTRAST CT ABDOMEN AND PELVIS WITH CONTRAST CT THORACIC SPINE WITH CONTRAST AND 3D VOLUME RENDERING CT LUMBAR SPINE WITH CONTRAST AND 3D VOLUME RENDERING: INDICATION: History of cardiac arrest. The patient has undergone cardiopulmonary resuscitation, found down with possible fall and injury. FINDINGS: There are diffuse abnormal interstitial and alveolar opacities throughout each lung as well as mild p leural fluid, which is a significant interval change from recent CT 08/14/2018. Superimposed, previous ly documented left upper lobe nodule has increased in size, now 1.5 cm in diameter. There is no pneum othorax visualized. The patient is intubated, with endotracheal tube traversing below the level of t he thoracic inlet. There is also an enteric catheter which traverses to the left upper quadrant. Th e thoracoabdominal aorta is grossly stable in appearance. No significant interval change within the solid abdominal organs. There are very small areas of wedge-shaped cortical hypoattenuation of the r ight kidney and to a lesser extent the left kidney. These findings could relate to phase of enhancem ent, although recommend clinical correlation with urinary laboratory values to exclude the possibilit y of complications from tricuspid insufficiency. Otherwise, no significant of the organs. The bowel is incompletely evaluated without enteric contrast. Numerous mildly ectatic loops of air-filled sma ll bowel are present throughout the abdomen. There is no pneumoperitoneum. Moderate distention of t he rectosigmoid colon by retained fecal material is present. There is a Solorzano catheter within the ur inary bladder which is decompressed, limiting assessment. Scant intraabdominal ascites is seen. Evaluation of the thoracolumbar spine reveals multilevel degenerative change. Prominent degenerative sclerosis of L4-5 is seen. Sternum is intact. No displaced pelvic fracture. IMPRESSION: Extensive bilateral interstitial and alveolar opacification of the lungs with mild bilateral pleural fluid, a significant interval change from comparison to recent CT 08/14/2018. At least a component of these findings does favor aspiration pneumonitis. Additional superimposed diffuse interstitial lung disease is also present which is considered an acute process given the development from the interval comparison exam 08/14/2018. Recommend clinical correlation in this regard. Continued radiographic fol lowup is recommended to confirm resolution. Prior left upper lobe nodule has increased in size to 1.5 cm from 08/14/18 exam, indicative of superimp osed progressive malignancy. Follow-up PET/CT is indicated, as per previous recommendations. Newly developed small areas of wedge-shaped hypoattenuation of the kidneys more notable on the right, as discussed above. Correlate with urinary laboratory values. Diffuse mild ectasia of small bowel. There is moderate distention of the rectosigmoid colon by impac [place] fecal material. POS: [facility]
[2018-10-11 08:24] LABS: Lactic Acid 4.9 mmol/L (0.5-2.2)
[2018-10-11] MEDS: Cefepime 1 GM in Sodium Chloride 0.9% 100 ML IVPB SCH ×2 (09:45→22:30)
[2018-10-11] MEDS: Enoxaparin Sodium 40 MG/0.4 ML SYRINGE SC SCH (09:45)
[2018-10-11] MEDS: Propofol 1,000 MG/100 ML VIAL IV PRN ×3 (10:21→21:50)
[2018-10-11 11:43] LABS: Troponin I 0.097 ng/mL (< 0.028)
[2018-10-11] MEDS: methylPREDNISolone Sod Succ 40 MG VIAL IVP SCH ×2 (11:52→17:36)
--- NOTE | 2018-10-11 12:26 | CON ---
DATE OF CONSULTATION: The patient is a 62-year-old gentleman, , who has been here numerous times in the hospital. I spoke to his daughter by phone, who states that he was living with the daughter up until about a week and a half, but left the house for personal reasons, apparently was in the mission, she tells me. She has not spoken to him over a week and a half. He was brought to the ER in cardiopulmonary arrest. EMS transported the patient, CPR in progress, is found down, slumped over at the mission. The patient was given ketamine and latonya, unsuccessful to intubate, he was bagged. Upon arrival to the hospital, he was intubated. He had suctioning and CPR in progress. His systolic blood pressure was low. His sats were in the 60s. X-ray post intubation shows extensive pulmonary edema. Emergency CT head shows no acute infiltrate. PAST MEDICAL HISTORY: His past medical history shows poor compliance, diabetes, hypertension, CVA, and CHF. He has been here numerous times and sees local doctors. In fact, he was just recently discharged from the hospital about 6 weeks ago with a diagnosis of decompensated CHF. He has diabetes. He has marijuana abuse, abnormal liver function tests, and hyponatremia. History of DVT in the past. He sees physician in [place], Dr. Solitario, and sees a local rating specialist here locally, apparently Dr. Horvath. SOCIAL HISTORY: He smokes. Apparently, he drinks, unclear. Unable to get any other history, he is intubated on the vent, sedated on Diprivan. PHYSICAL EXAMINATION: VITAL SIGNS: Pulse 54, blood pressure 90/66, sats 94%, respirations 16. CHEST: Bilateral rhonchi and crackles. CARDIAC: Normal S1 and S2. No gallops. ABDOMEN: No masses. LABORATORY DATA: PO2 246, pCO2 39, pH 7.36 on a rate of 24, 500, 100%. Lytes are normal. Drug screen was negative. White count 11,000, H and H 12 and 41, platelet count is normal. Chemistry shows creatinine of 1.4. Lactic acid 4.9. Elevated AST and ALT. Elevated troponin. IMPRESSION: 1. Respiratory failure, status post cardiopulmonary arrest, status post cardiopulmonary resuscitation. 2. Congestive heart failure. 3. Probably aspiration pneumonia. 4. Probably diastolic dysfunction. Last echo showed a normal EF of 55. 5. History of diabetes. PLAN: Continue supportive care. Await input from Cardiology. Reinstitute home medication, empiric broad-spectrum antibiotics. Pulmonary will follow while in the ICU. I am concerned he might have sustained some anoxic injury, no way to tell at this stage until we assess him severely. This is a 45-minute critical time. Job ID: [id number]
--- NOTE | 2018-10-11 12:32 | HP ---
PRIMARY CARE PHYSICIAN: Jaswinder Solitario MD CODE STATUS: Full code. CHIEF COMPLAINT: Found unresponsive. HISTORY OF PRESENT ILLNESS: This is a 63-year-old male patient with past medical history of diabetes, hypertension, hyperlipidemia, and CVA, came to the hospital after being found unresponsive. EMS got to the scene and found that the patient was down. There was an attempt for intubation, and it was unsuccessful. The patient continued to be bagged, the patient went into cardiac arrest. The patient regained spontaneous circulation after 6 minutes of CPR. Got to the ER, got intubated. Unclear etiology why the patient was , symptoms were severe. No alleviating factors. Information has been gathered from ER staff. REVIEW OF SYSTEMS: Unable to obtain. The patient is intubated and sedated. ALLERGIES: NO KNOWN DRUG ALLERGIES. REPORTED MEDICATIONS: None. FAMILY HISTORY: Reviewed, noncontributory to current presentation. PAST SURGICAL HISTORY: Left eye surgery, stents. PSYCHIATRIC HISTORY: No previous psych history reported. SOCIAL HISTORY: Drinks socially. Currently uses drugs and marijuana. Former drug user, quit 1 week ago. PHYSICAL EXAMINATION: VITAL SIGNS: On presentation, heart rate 100, blood pressure 248/164, after regaining those . GENERAL APPEARANCE: The patient is intubated and sedated. HEENT: Eyes, normal. ENT, moist oral mucosa. Anicteric. No JVD. RESPIRATORY: Bilateral air entry. No rales. No wheezing. Symmetric expansion. CARDIOVASCULAR: Normal rate. Regular rhythm, but he is hypertensive. No murmurs. Mild lower leg edema 1+. ABDOMEN: Soft, normal bowel sounds. MUSCULOSKELETAL: Baseline range of motion and strength. SKIN: Warm, intact. No pallor. No rash. No redness. EXTREMITIES: Peripheral pulses are present. Capillary refill seems to be intact. NEUROLOGIC: No evidence of any new focal weakness. Cranial nerves seem to be intact. PSYCHIATRIC: The patient is in good mood. No anxiety. Optimal judgment. DIAGNOSTIC DATA: EKG was reviewed. The patient has sinus rhythm with marked sinus arrhythmia, ventricular rate 87, MD 160, QRS 192, RBBB. Chest x-ray was reviewed, still not reported. He has bilateral pulmonary congestion, could be secondary to CPR. CT head did not show any significant bleeding or acute pathology. Official report from Radiology needs to be followed, the same with the CT abdomen. CT scan showed edema. We will follow the official report from Radiology. LABORATORY DATA: Labs are reviewed. The patient has a white count 11.1, hemoglobin 12.6, MCV 97.9. Coagulation; PT 14.7, INR 1.1, PTT 35.4. Blood gas, pH 6.99, with a pCO2 of 78.4, PO2 of 95. This was done on SIMV, tidal volume 500 and inspired oxygen 100%, mechanical rate 18, PEEP of 5. Chemistry; sodium 138, potassium 5.0, chloride 103, carbon dioxide 19, anion gap 21, BUN 13, creatinine 1.4 and previous admission creatinine was 0.8. Glucose 369, lactic acid 9.3, calcium 9.5, magnesium 3.1. Total bilirubin 0.3, AST 212, ALT 164, alkaline phosphatase 189. Troponin 0.059. Urine was done and showed a few white cells. Toxicology was done and was negative. CRITICAL CARE TIME: Critical care time spent more than 35 minute due to bedside assessment, medication reconciliation, stabilization of the patient, coordination of care. ASSESSMENT AND PLAN: The patient will be placed in the hospital with the following medical problems: 1. Acute hypoxic and hypercapnic respiratory failure, unclear etiology. The patient is intubated, consult Pulmonary and we will follow recommendations. We will continue DuoNeb p.r.n. while intubated. 2. Cardiac arrest, unclear etiology. Cardiology will be consulted. We will follow recommendations. The patient is to be stable during my examination. 3. Respiratory acidosis, pH 6.99, pCO2 78. This is secondary to underlying cardiac arrest. The patient is already intubated, treatment as above. 4. Acute kidney injury. The patient has creatinine 1.4. It is an increase of more than 0.3 mg/dL from previous admissions, this could be secondary to hypotension during cardiac arrest and hypoperfusion. We will follow kidney function. We will treat accordingly. If not improving, might need Nephrology for assistance. 5. Uncontrolled diabetes with blood sugar 369. We will put the patient on sliding scale for optimal control. Reconcile home medications. 6. Lactic acidosis, likely secondary to cardiac arrest in time of hypoperfusion. We will monitor, we will treat accordingly. 7. Hypermagnesemia with magnesium of 3.1. It could be secondary to acute kidney injury. We will monitor and treat accordingly. 8. Elevated LFTs, likely secondary to shock liver during cardiac arrest. We will trend, we will treat accordingly. No need for any acute intervention at this point. 9. [id number] myocardial infarction, type 2. The patient has initial troponin of 0.059. We will trend troponins, we will treat accordingly. This is likely due to hypoperfusion. 10. Uncontrolled hypertension. During my examination, blood pressure is extremely high. We will reconcile home medications. We will increase sedation. We will treat accordingly. 11. Hyperlipidemia. Low-cholesterol diet is advised. Job ID: [id number] [facility]
[2018-10-11] MEDS ORDERED: EPINEPHrine 1 MG/10 ML Abboject SYRINGE ONE (15:00)
[2018-10-11] MEDS: Morphine 2 MG/ML SYRINGE SLOW IVP PRN (22:54)
[2018-10-12] MEDS: methylPREDNISolone Sod Succ 40 MG VIAL IVP SCH ×4 (00:06→17:26)
[2018-10-12] MEDS: Propofol 1,000 MG/100 ML VIAL IV PRN (03:00)
[2018-10-12 04:53] LABS: #Lymphocytes 0.7 thou/uL (1.20-3.40); #Monocytes 0.3 thou/uL (0.11-0.59); #Neutrophils 9.7 thou/uL (1.40-6.50); %Basophils 0.1 % (0.0-1.0); %Lymphocytes 6.4 % (21.0-51.0); %Monocytes 2.4 % (0.0-10.0); Hemoglobin 11.3 g/dL (14.0-18.0); Mean Corpuscular Hemoglobin 29.4 pg (27.0-31.0); Mean Corpuscular Volume 94.9 fL (78.0-98.0); Mean Platelet Volume 7.2 fL (7.4-10.4); Platelet Count 226 thou/uL (130-400); RBC Distribution Width 12.5 % (11.5-14.5); Red Blood Cell (RBC) Count 3.86 mill/uL (4.70-6.10); White Blood Cell (WBC) Count 10.6 thou/uL (4.8-10.8)
[2018-10-12 05:14] LABS: Anion Gap 15 mmol/L (10-20); BUN (Urea Nitrogen) 16 mg/dL (8.4-25.7); Calc. Creatinine Clearance 81 mL/min (70-130); Calcium 8.2 mg/dL (7.8-10.44); Carbon Dioxide 21 mmol/L (23-31); Chloride 106 mmol/L (98-107); Estimated GFR-MDRD Greater than 90; Glucose 238 mg/dL (80-115); Potassium 3.9 mmol/L (3.5-5.1); Sodium 138 mmol/L (136-145)
[2018-10-12] MEDS: HumaLOG 300 UNITS/3 ML VIAL SC PRN ×4 (05:44→21:30)
[2018-10-12 07:07] LABS: Actual Bicarbonate (HCO3a) 24.5 mEq/L (22-28); Base Excess (BEa) 0.5 mEq/L (-2.0 to +3.0); CO2 Tension 37.3 mmHg (35.0-45.0); Calcium, Ionized 1.11 mmol/L (1.12-1.30); Carboxyhemoglobin (COHb) 1.2 gm% (0.0-3.0); O2 Tension (PaO2) 89.5 mmHg (> 80.0); Potassium - ABG Lab 3.68 mmol/L (3.70-5.30); pH, Arterial 7.44 (7.35-7.45)
[2018-10-12 07:31] LABS: ALV-art Gradient 220.375 (0-20); Puncture Site L.R.
--- NOTE | 2018-10-12 07:59 | RAD ---
XR Chest 1 View Portable History: [Ventilated patient] Comparison: Radiograph prior day Findings: Mild interval improvement of the diffuse airspace opacities. Layering bilateral pleural eff usions. Moderate cardiomegaly. Left perihilar nodule not well seen. Endotracheal tube tip is in good position. Enteric tube tip below diaphragm level out of field of vie w. Impression: Improving pulmonary infiltrates. Moderate layering effusions.
--- NOTE | 2018-10-12 08:50 | PRG ---
DATE OF SERVICE: 10/12/2018 SUBJECTIVE: A 62-year-old gentleman, who is intubated on the vent. Surprisingly, x-ray shows much improvement in his bilateral infiltrates. OBJECTIVE: VITAL SIGNS: Saturations are 100% on 40%, pulse 47, blood pressure , respiratory rate 13. I's and O's have been good. CHEST: Decreased breath sounds. Bilateral rhonchi. CARDIAC: Normal S1, S2. No gallops. ABDOMEN: No masses. LABORATORY DATA: PO2 is 89, pCO2 37, pH 7.44. White count 10,000, hemoglobin 11 and hematocrit 36, platelet count 226. Lytes are normal. Cultures so far negative. IMPRESSION: Respiratory failure, aspiration pneumonia, underlying diastolic dysfunction. PLAN: We will hold sedation. He is not weanable today. We will start nutrition. Continue broad-spectrum antibiotics. One-half hour of critical care time. Job ID: [id number]
[2018-10-12] MEDS: Enoxaparin Sodium 40 MG/0.4 ML SYRINGE SC SCH (09:08)
[2018-10-12] MEDS: Morphine 2 MG/ML SYRINGE SLOW IVP PRN (09:35)
[2018-10-12] MEDS: Cefepime 1 GM in Sodium Chloride 0.9% 100 ML IVPB SCH ×2 (09:38→21:25)
[2018-10-12] MEDS ORDERED: Clopidogrel Bisulfate 75 MG TAB PO SCH (17:15)
[2018-10-12] MEDS ORDERED: Aspirin 81 mg Enteric Coated Tablet PO SCH (17:15)
[2018-10-12] MEDS ORDERED: Lisinopril 10 MG TAB PO SCH (18:00)
[2018-10-12] MEDS: Famotidine/PF 20 mg/2ml Vial SLOW IVP SCH (21:25)
--- NOTE | 2018-10-12 22:10 | PDOC.PN ---
- Subjective Encounter Start Date: 10/12/18 Encounter Start Time: 13:00 Extubated. Sitting up in bed. Already had a meal. Denies current complaints. No respiratory issues. - Objective Resuscitation Status - Order Detail: 10/11/18 05:02 Resuscitation Status Routine Resuscitation Status: FULL: Full Resuscitation Vital Signs & Weight: Vital Signs (12 hours) Temp Pulse Pulse Pulse Resp BP BP 10/12/18 19:00 97.9 F 10/12/18 18:54 69 18 10/12/18 17:26 163/89 H 10/12/18 14:29 73 18 10/12/18 12:09 97.5 F L 10/12/18 11:57 10/12/18 11:20 70 61 167/94 H BP Pulse Ox Pulse Ox Pulse Ox 10/12/18 19:00 10/12/18 18:54 99 10/12/18 17:26 10/12/18 14:29 100 10/12/18 12:09 10/12/18 11:57 100 10/12/18 11:20 159/91 H 100 100 Weight Admit Weight 142 lb 3.2 oz Weight 142 lb 3.2 oz Most Recent Monitor Data Heart Rate from ECG 70 NIBP 159/96 NIBP BP-Mean 117 Respiration from ECG 19 SpO2 99 I&O: 10/11/18 10/12/18 10/13/18 06:59 06:59 06:59 Intake Total 802 613.2 Output Total 1250 1572 980 Balance -1250 -770 -366.8 Result Diagrams: 10/12/18 04:06 10/12/18 04:06 Additional Labs: Accuchecks 10/12/18 10/11/18 16:35 22:30 POC Glucose 211 H 184 H Phys Exam - Physical Examination Constitutional: NAD Neck: no JVD Respiratory: no wheezing, no rales, no rhonchi, clear to auscultation bilateral Cardiovascular: RRR Gastrointestinal: soft, non-tender Musculoskeletal: no edema Neurological: non-focal Psychiatric: normal affect, A&O x 3 Skin: normal turgor Dx/Plan (1) Acute respiratory failure with hypoxia Code(s): J96.01 - ACUTE RESPIRATORY FAILURE WITH HYPOXIA Status: Acute (2) Aspiration pneumonia Code(s): J69.0 - PNEUMONITIS DUE TO INHALATION OF FOOD AND VOMIT Status: Acute (3) Cardiac arrest Code(s): I46.9 - CARDIAC ARREST, CAUSE UNSPECIFIED Status: Acute (4) Paroxysmal A-fib Code(s): I48.0 - PAROXYSMAL ATRIAL FIBRILLATION Status: Acute (5) Hx of deep venous thrombosis Code(s): Z86.718 - PERSONAL HISTORY OF OTHER VENOUS THROMBOSIS AND EMBOLISM Status: Acute (6) Acute diastolic (congestive) heart failure Code(s): I50.31 - ACUTE DIASTOLIC (CONGESTIVE) HEART FAILURE Status: Acute (7) Marijuana abuse Code(s): F12.10 - CANNABIS ABUSE, UNCOMPLICATED Status: Acute - Plan * Was found unresponsive and arrived with CPR in progress. * Initial concern for hypoxic brain injury. * Today has no evidence of problems. * Sore chest from CPR. * Looks like it might have been pulm edema from diastolic dysfunction. * He has some inf. akinesis on last echo. Had modest CAD. * Possibly could have had more sinister arrythmia. * Consult Cardiology. * Pulmonary following.
--- NOTE | 2018-10-12 23:16 | CON ---
DATE OF CONSULTATION: 10/12/2018 INDICATION FOR CONSULTATION: A 62-year-old patient who was admitted back in August after suffering an acute inferior myocardial infarction. He underwent angioplasty and stent placement to the left circumflex x2. No stent was placed in the right coronary artery. He did have a codominant system with somewhat small right coronary artery. He denies any significant disease noted in the left system. He was treated medically, was in the hospital. He did have some episodes of hemoptysis at that time and also had some congestive heart failure symptoms. He was diuresed. He then was sent home. He presented back shortly the next day after having more shortness of breath, was then kept for a few days and then again was discharged home. Apparently came back at that time, was seen by Dr. García and medically managed. He then was doing well for the last several weeks or months, and then the night before admission he knows he became more short of breath, he could not breathe. He then called 911. By the time they arrived, apparently he almost had agonal breathing. They were unable to intubate the patient and then he became pulseless apparently. He underwent resuscitation for about 6 minutes, was then transferred to the hospital where he underwent intubation and was admitted to the intensive care unit. He was extubated this morning and has been doing quite well since that time, does not appear that he has suffered any anoxic brain injury. He is alert, he is oriented. He is aware of everything up until the time after he asked someone to call the ambulance because he could not breathe. When he was discharged, he was treated with amiodarone, Eliquis, aspirin, and Plavix. He also was placed on lisinopril and Lipitor as well as Coreg, Plavix, and insulin. He was actually living in [place] at that time. He is now living here in [place], staying in the [facility] and has been doing cardiac rehab without any problems. His EKG on admission showed a right bundle-branch block, appeared to be in sinus rhythm. He did have some ST-segment changes. This is from an EKG performed yesterday. I do not see any other EKG has been performed since the original EKG on his admission. We will repeat the EKG. His cardiac enzymes were still indeterminate. They were not significantly elevated. Troponin I was 0.067, increased up to 0.097. His BNP was 529, otherwise has been relatively stable. His lactic acid level was 4.9. PAST MEDICAL HISTORY: Significant for the congestive heart failure episodes. He has had a history of coronary artery disease, angioplasty, stent placement to the left circumflex x2 stents. He has a history of hemoptysis, diabetes, hypertension. He suffered a CVA at some point in time according to the records. He has also had bilateral basilic vein thrombosis on one of his recent admissions. He has a history of intermittent atrial fibrillation. SOCIAL HISTORY: He smokes marijuana. He lives at the [facility]. ALLERGIES: NONE. MEDICATIONS: Include; 1. Lisinopril. 2. Amiodarone. 3. Eliquis. 4. Aspirin. 5. Lipitor. 6. Coreg. 7. Plavix. 8. Insulin. REVIEW OF SYSTEMS: He has poor dentition. He complains of shortness of breath. Otherwise, 12-point review of systems is unremarkable except for what was noted in the history of present illness. FAMILY HISTORY: Noncontributory. PHYSICAL EXAMINATION: GENERAL: Reveals a well-developed, well-nourished, very alert gentleman. VITAL SIGNS: Blood pressure 160/98, heart rate is 70 and regular, respiratory rate 17. HEENT: Shows the head to be normocephalic and atraumatic. Carotid pulses are present without any bruits. CHEST: Actually clear to auscultation. I did not hear any rales, rhonchi, or wheezing. CARDIOVASCULAR: Reveals a regular rate and rhythm with normal S1 and S2. There is no S3 or S4. There are no significant murmurs, heaves, thrills, bruits, or rubs. He does have a murmur at the apex, 3/6 to 4/6 systolic murmur. ABDOMEN: Soft and nontender. Positive bowel sounds are present. EXTREMITIES: Show no clubbing, cyanosis, or edema. Pedal pulses are present. The left pedal pulse is slightly decreased, but otherwise normal. NEUROLOGIC: He appears to be fully intact. SKIN: Warm and dry. IMAGING: EKG as noted shows a sinus rhythm with a right bundle-branch block. We will ask for a repeat EKG. His rhythm strips did not show any significant arrhythmias. The QRS appears to be normal on the rhythm strips. Chest x-ray shows some pulmonary infiltrates with small pleural effusions. LABORATORY DATA: Show otherwise WBC of 10.6, hemoglobin 11.3, potassium is 3.9, BUN is 16, and creatinine is 0.86. Blood sugar was 238. IMPRESSION: 1. Status post respiratory arrest, which may have been cardiopulmonary arrest, unclear. He did receive apparently CPR for about 6 minutes and required intubation. He is more stable at this time. Vital signs are stable. He has no neurologic sequela, it does not appear. We will continue to monitor the patient. Uncertain, if this is perhaps fluid overload, that is why he became short of breath and even perhaps managed on medications and I do not see that he was on Lasix. He may need to be placed back on Lasix. 2. Diastolic dysfunction, noted on the echocardiogram previously. We will continue to monitor this, may need to be placed on BI inhibitor. He is on BI inhibitor and we will continue the BI inhibitor. 3. Coronary artery disease, for which he underwent angioplasty and stent placement to the left circumflex. This appears to be actually relatively stable at this time. We will continue to monitor him. It appears that mainly we would just need to adjust his medications perhaps if he gets volume overloaded again and became short of breath. I do not see indication that he has had any acute cardiac event otherwise, does not appear that he has had any chest pain and it would be unlikely that the left circumflex has occluded, however, that is always a possibility. We will continue to monitor him. If he has any indication, he may need to undergo a repeat cardiac catheterization for evaluation of left circumflex. We can repeat the echocardiogram to see if he has had any other events. His last echocardiogram was in August 2018, which showed an ejection fraction of 50% to 55% with moderate left ventricular hypertrophy and severe mitral valve regurgitation. The inferior wall appeared to be akinetic. Job ID: [id number]
[2018-10-13] MEDS: methylPREDNISolone Sod Succ 40 MG VIAL IVP SCH ×3 (00:08→11:39)
[2018-10-13] MEDS: HumaLOG 300 UNITS/3 ML VIAL SC PRN ×4 (06:49→20:46)
[2018-10-13] MEDS ORDERED: Carvedilol 3.125 MG TAB PO SCH (08:00)
--- NOTE | 2018-10-13 08:01 | RAD ---
XR Chest 1 View Portable History: [Ventilated patient] Comparison: Radiograph prior day Findings: Interval extubation and removal of the enteric tube. Mild pulmonary edema, similar. Layerin g pleural effusions are similar. Heart size continues to be enlarged. Impression: Interval extubation and removal of the enteric tube. Cardiomegaly edema and small effusio ns are similar.
[2018-10-13] MEDS: Famotidine/PF 20 mg/2ml Vial SLOW IVP SCH (08:34)
[2018-10-13] MEDS: Clopidogrel Bisulfate 75 MG TAB PO SCH (08:34)
[2018-10-13] MEDS: Enoxaparin Sodium 40 MG/0.4 ML SYRINGE SC SCH (08:51)
[2018-10-13] MEDS: Aspirin 81 mg Enteric Coated Tablet PO SCH (08:53)
[2018-10-13] MEDS ORDERED: Lisinopril 10 MG TAB PO SCH (09:00)
[2018-10-13] MEDS: Cefepime 1 GM in Sodium Chloride 0.9% 100 ML IVPB SCH (10:07)
--- NOTE | 2018-10-13 10:17 | PDOC.CTH ---
Cardiology Progress Note - Subjective pt. seen and eval. by me. No new events overnight. No cardiac complaints. Chest soreness after CPR. - Objective Vital Signs Temp Pulse Resp BP Pulse Ox 10/13/18 08:34 176/84 H 10/13/18 08:21 78 16 10/13/18 07:16 97 10/13/18 07:00 97.7 F 10/13/18 00:24 51 L 10 L 100 Admit Weight 142 lb 3.2 oz Weight 142 lb 13.753 oz 10/12/18 10/13/18 10/14/18 06:59 06:59 06:59 Intake Total 802 813.2 Output Total 1572 1800 260 Balance -770 -986.8 -260 - Physical Examination General/Neuro: alert & oriented x3 Neck: no JVD present Lungs: CTA Heart: RRR Abdomen: NT/ND - Labs Result Diagrams: 10/12/18 04:06 10/12/18 04:06 Troponin/CKMB CK-MB (CK-2) 1.5 ng/mL (0-6.6) 10/11/18 03:59 Troponin I 0.097 ng/mL (< 0.028) H 10/11/18 11:05 - Assessment/Plan 1. s/p cardio-resp. arrest. CPR for approx. 6 min. Now stable. No neurologiuc sequella. 2. CAD. s/p PA, s/p ptca/stent to the left circ. Stable. 3. HTN. Continue to adjust meds. Okay to transfer to [facility].
[2018-10-13] MEDS ORDERED: Furosemide 40 MG TAB PO SCH (10:45)
--- NOTE | 2018-10-13 15:57 | PRG ---
DATE OF SERVICE: 10/13/2018 SUBJECTIVE: The patient feels well. He actually has no complaints today. OBJECTIVE: VITAL SIGNS: He is afebrile. Pulse 68, BP 151/81, heart rates 50 to 53, O2 saturation 94% on room air. GENERAL APPEARANCE: Age-appropriate male, in no distress. He is awake, alert, oriented, pleasant, and cooperative. HEART: Regular rate and rhythm without murmurs. LUNGS: Clear bilaterally with no wheezes or rales. ABDOMEN: Soft, nontender, and nondistended. Positive bowel sounds. EXTREMITIES: No cyanosis, clubbing, or edema. LABORATORY DATA: Blood sugars ranging 211 to 391. Sputum aspirate culture growing group C strep. Echocardiogram today shows similar findings as the previous one with EF of 50% to 55% with some inferior akinesis, moderate MR, mild tricuspid regurg, mild pulmonic regurgitation. IMPRESSION AND PLAN: 1. Cardiopulmonary arrest, status post CPR for about 6 minutes. The patient was subsequently intubated, but has now been extubated with no evidence of neurologic sequelae and is back to his baseline state. Unclear etiology, may be related to volume overload with congestive heart failure. Apparently, this has happened several times to this patient with similar outcomes. 2. Congestive heart failure. The patient's x-ray today shows some persistent pulmonary edema and cardiomegaly. I discussed this with Cardiology, who is starting him back on Lasix and increasing his BI inhibitor and beta sachi today. 3. Hypertension, resuming and increasing medications as stated above. 4. Possible aspiration pneumonia. Aspirate growing strep, could easily be mild contaminant. Continue with broad-spectrum antibiotic coverage, although it appears as though he could likely switch this over to p.o. by today or tomorrow. 5. History of paroxysmal atrial fibrillation, sinus rhythm now. 6. History of deep venous thrombosis. 7. Marijuana abuse. 8. Acute hypoxic respiratory failure, resolved. 9. Disposition, transferred to the floor. Discontinue Solorzano if the patient ambulating. Hopefully be able to transition over to p.o. antibiotics soon and consider discharge soon if he is tolerating medication changes. Job ID: [id number]
[2018-10-13] MEDS: Carvedilol 6.25 MG TAB PO SCH (16:32)
--- NOTE | 2018-10-13 17:04 | EKG ---
Test Reason : Blood Pressure : / mmHG Vent. Rate : 087 BPM Atrial Rate : 087 BPM P-R Int : 160 ms QRS Dur : 192 ms QT Int : 438 ms P-R-T Axes : 039 147 009 degrees QTc Int : 527 ms Sinus rhythm with marked sinus arrhythmia Possible Left atrial enlargement Right bundle branch block Left ventricular hypertrophy Abnormal ECG Confirmed by KSENIA BRICE DO ([id number]), editor department RHETT CHAVARRIA ([id number]) on 10/13/2018 5:04:01 PM Referred By: Confirmed By:KSENIA BRICE DO
--- NOTE | 2018-10-13 20:12 | PRG ---
DATE OF SERVICE: 10/13/2018 SUBJECTIVE: Mr. Medley has no complaints today. He has been seen by Cardiology as well as the hospitalist. He does complain of chest discomfort. He did have CPR. OBJECTIVE: VITAL SIGNS: Blood pressure 176/84, heart rate is in 70s, and respiratory rates in the teens. Intake and output were negative 986. HEENT: Pupils are equal. Sclerae are anicteric. NECK: Supple. LUNGS: Clear. HEART: Regular rhythm. ABDOMEN: Soft and nontender. EXTREMITIES: Without asymmetry or edema. NEUROLOGIC: Nonfocal. LABORATORY DATA: There is no new lab today. IMPRESSION: 1. Status post cardiac and respiratory arrest 6 minutes CPR without neurological sequela. 2. Status post coronary artery stenting. 3. Hypertension. PLAN: Cardiology feels he is stable to move to telemetry. His pulmonary edema is improved and was likely related to his arrest. Maybe a component of aspiration. He is being covered with antimicrobial therapy, which can probably be simplified tomorrow. We will continue to follow. Critical care time is 35 minutes. Job ID: [id number] [id number]
[2018-10-13] MEDS: Lisinopril 10 MG TAB PO SCH (20:42)
[2018-10-13] MEDS: Famotidine 20 MG TAB PO SCH (20:42)
[2018-10-13] MEDS: Amoxicillin/Potassium Clav 875 MG TAB PO SCH (20:42)
[2018-10-13] MEDS ORDERED: Insulin Glargine 20 UNITS in Pre-Filled Syringe 1 EACH SC SCH (21:00)
[2018-10-14] MEDS: Aspirin 81 mg Enteric Coated Tablet PO SCH (08:06)
[2018-10-14] MEDS: Clopidogrel Bisulfate 75 MG TAB PO SCH (08:06)
[2018-10-14] MEDS: Amoxicillin/Potassium Clav 875 MG TAB PO SCH ×2 (08:06→21:53)
[2018-10-14] MEDS: Furosemide 40 MG TAB PO SCH (08:06)
[2018-10-14] MEDS: Carvedilol 6.25 MG TAB PO SCH ×2 (08:06→16:06)
[2018-10-14] MEDS: Enoxaparin Sodium 40 MG/0.4 ML SYRINGE SC SCH (08:07)
[2018-10-14] MEDS: Famotidine 20 MG TAB PO SCH ×2 (08:07→21:53)
[2018-10-14] MEDS: Lisinopril 10 MG TAB PO SCH (08:07)
[2018-10-14] MEDS: HumaLOG 300 UNITS/3 ML VIAL SC PRN ×2 (08:07→11:30)
--- NOTE | 2018-10-14 08:18 | RAD ---
XR Chest 1 View Portable History: [Ventilated patient] Comparison: None. Radiograph prior day Findings: Small effusions. Mild pulmonary venous congestion mild edema. No pneumothorax. Right apical pleural scarring. Abnormal airspace opacities throughout the lower lobes right middle lobe. Abnormal mass on the left hilum. Impression: Similar examination of the chest. Given recent CT findings to multifocal pneumonia is of concern as well as a left hilar mass. Bronchoscopy warranted
[2018-10-14] MEDS ORDERED: hydrALAZINE 20 MG/ML VIAL SLOW IVP PRN (09:42)
[2018-10-14] MEDS ORDERED: Bisacodyl 10 MG SUPP PR SCH (09:45)
[2018-10-14] MEDS ORDERED: Diabetic Tussin 200 MG/10 ML UDCUP PO PRN (09:54)
[2018-10-14] MEDS ORDERED: Loperamide HCl 2 MG CAP PO PRN (09:54)
[2018-10-14] MEDS ORDERED: Cepastat Lozenges 1 LOZ PO PRN (09:54)
[2018-10-14] MEDS ORDERED: Sodium Chloride 0.65% Nasal 44 ML BOT EA NARE PRN (09:54)
[2018-10-14] MEDS ORDERED: Calcium Carbonate 500 MG ChewTAB PO PRN (09:54)
[2018-10-14] MEDS ORDERED: Loratadine 10 MG TAB PO PRN (09:54)
[2018-10-14] MEDS ORDERED: Zolpidem Tartrate 5 MG TAB PO PRN (09:54)
[2018-10-14] MEDS ORDERED: Senokot S 8.6-50 MG TAB PO PRN (09:54)
[2018-10-14] MEDS ORDERED: Lisinopril 20 MG TAB PO SCH (10:00)
[2018-10-14] MEDS ORDERED: Lisinopril 10 MG TAB PO SCH (11:00)
--- NOTE | 2018-10-14 12:07 | PDOC.PN ---
- Subjective Encounter Start Date: 10/14/18 Encounter Start Time: 08:45 -: old records requested/rev pt is doing well, he reports that his BP is very high, he does not have symptoms with high BP, no chest pain, no fever, no dyspnea he is walking around with walking program - Objective Resuscitation Status - Order Detail: 10/11/18 05:02 Resuscitation Status Routine Resuscitation Status: FULL: Full Resuscitation MAR Reviewed: Yes Vital Signs & Weight: Vital Signs (12 hours) Temp Pulse Pulse Pulse Resp BP BP 10/14/18 11:27 97.7 F 54 L 16 10/14/18 10:16 55 L 170/89 H 10/14/18 08:50 79 68 218/101 H 10/14/18 08:05 98.2 F 62 16 10/14/18 07:48 59 L 18 10/14/18 04:15 98.2 F 56 L 20 BP BP BP Pulse Ox 10/14/18 11:27 181/82 H 98 10/14/18 10:16 10/14/18 08:50 161/89 H 10/14/18 08:05 179/79 H 100 10/14/18 07:48 93 L 10/14/18 04:15 168/91 H 97 Weight Admit Weight 142 lb 3.2 oz Weight 142 lb 13.753 oz Most Recent Monitor Data Heart Rate from ECG 50 NIBP 160/92 NIBP BP-Mean 114 Respiration from ECG 14 SpO2 92 I&O: 10/13/18 10/14/18 10/15/18 06:59 06:59 06:59 Intake Total 813.2 490 Output Total 1800 1675 Balance -986.8 -1185 Result Diagrams: 10/12/18 04:06 10/12/18 04:06 Additional Labs: Accuchecks 10/14/18 10/13/18 10/13/18 05:37 20:47 16:05 POC Glucose 296 H 349 H 307 H 10/13/18 06:49 POC Glucose 332 H Radiology Reviewed by me: Yes (chest xray reviewed) EKG Reviewed by me: Yes (nsr) Phys Exam - Physical Examination Constitutional: NAD HEENT: PERRLA, moist MMs, sclera anicteric Neck: no JVD, supple Respiratory: no wheezing, no rales, no rhonchi Cardiovascular: RRR, no significant murmur, no rub Gastrointestinal: soft, non-tender, no distention, positive bowel sounds Musculoskeletal: no edema, pulses present Neurological: non-focal, normal sensation, moves all 4 limbs Lymphatic: no nodes Psychiatric: normal affect, A&O x 3 Skin: no rash, normal turgor Dx/Plan (1) Acute diastolic (congestive) heart failure Code(s): I50.31 - ACUTE DIASTOLIC (CONGESTIVE) HEART FAILURE Status: Resolved (2) Acute respiratory failure with hypoxia Code(s): J96.01 - ACUTE RESPIRATORY FAILURE WITH HYPOXIA Status: Resolved (3) Aspiration pneumonia Code(s): J69.0 - PNEUMONITIS DUE TO INHALATION OF FOOD AND VOMIT Status: Resolved (4) Cardiac arrest Code(s): I46.9 - CARDIAC ARREST, CAUSE UNSPECIFIED Status: Resolved (5) Paroxysmal A-fib Code(s): I48.0 - PAROXYSMAL ATRIAL FIBRILLATION Status: Chronic (6) Diabetes type 2, controlled Code(s): E11.9 - TYPE 2 DIABETES MELLITUS WITHOUT COMPLICATIONS Status: Chronic (7) Dyslipidemia Code(s): E78.5 - HYPERLIPIDEMIA, UNSPECIFIED Status: Chronic (8) CAD (coronary artery disease) Code(s): I25.10 - ATHSCL HEART DISEASE OF [place] CORONARY ARTERY W/O ANG PCTRS Status: Chronic (9) Hypertension Code(s): I10 - ESSENTIAL (PRIMARY) HYPERTENSION Status: Chronic (10) Hilar mass Code(s): R91.8 - OTHER NONSPECIFIC ABNORMAL FINDING OF LUNG FIELD Status: Acute Comment: reported on chest xray, pulmonary following, will defer to pulmonary - Plan cont current plan of care, continue antibiotics, respiratory therapy * medication reviewed as below * symptomatic treatment * start selected home medication * increase insulin humilin 70/30, 20 unit sc bid * increase lisinopril 20 mg po bid * add aldactone * repeat labs tomorrow. * cardiology and pulmonary following Review of Systems - Review of Systems ENT: negative: Ear Pain, Ear Discharge, Nose Pain, Nose Discharge, Nose Congestion, Mouth Pain, Mouth Swelling, Throat Pain, Throat Swelling, Other Respiratory: negative: Cough, Dry, Shortness of Breath, Hemoptysis, SOB with Excertion, Pleuritic Pain, Sputum, Wheezing Cardiovascular: negative: chest pain, palpitations, orthopnea, paroxysmal nocturnal dyspnea, edema, light headedness, other Gastrointestinal: negative: Nausea, Vomiting, Abdominal Pain, Diarrhea, Constipation, Melena, Hematochezia, Other Genitourinary: negative: Dysuria, Frequency, Incontinence, Hematuria, Retention , Other Musculoskeletal: negative: Neck Pain, Shoulder Pain, Arm Pain, Back Pain, Hand Pain, Leg Pain, Foot Pain, Other Skin: negative: Rash, Lesions, Justice, Bruising, Other - Medications/Allergies Allergies/Adverse Reactions: Allergies Allergy/AdvReac Type Severity Reaction Status Date / Time No Known Allergies Allergy Verified 10/11/18 07:16 Medications: Current Medications Acetaminophen (Tylenol) 650 mg PO Q4H PRN PRN Reason: Headache/Fever/Mild Pain (1-3) Albuterol/Ipratropium (Duoneb) 3 ml NEB Q4H PRN PRN Reason: SOB &/or Wheezing Albuterol/Ipratropium (Duoneb) 3 ml NEB [id number] [facility] Last Admin: 10/14/18 07:48 Dose: 3 ml Amoxicillin/Clavulanate Potassium (Augmentin) 875 mg PO Q12HR [facility] Last Admin: 10/14/18 08:06 Dose: 875 mg Aspirin (Ecotrin) 81 mg PO DAILY [facility] Last Admin: 10/14/18 08:06 Dose: 81 mg Calcium Carbonate (Tums) 1,000 mg PO Q4H PRN PRN Reason: Heartburn or Indigestion Carvedilol (Coreg) 6.25 mg PO BID-[facility] Last Admin: 10/14/18 08:06 Dose: 6.25 mg Clopidogrel Bisulfate (Plavix) 75 mg PO DAILY [facility] Last Admin: 10/14/18 08:06 Dose: 75 mg Dextrose/Water (Dextrose 50%) 25 gm SLOW IVP PRN PRN PRN Reason: Hypoglycemia Enoxaparin Sodium (Lovenox) 40 mg SC 0900 [facility] Last Admin: 10/14/18 08:07 Dose: 40 mg Famotidine (Pepcid) 20 mg PO BID [facility] Last Admin: 10/14/18 08:07 Dose: 20 mg Furosemide (Lasix) 40 mg PO DAILY-AC [facility] Last Admin: 10/14/18 08:06 Dose: 40 mg Glucagon (Glucagon) 1 mg IM PRN PRN PRN Reason: Hypoglycemia Guaifenesin (Robitussin Sf) 200 mg PO Q4H PRN PRN Reason: Cough Hydralazine HCl (Apresoline) 10 mg SLOW IVP Q4H PRN PRN Reason: .SBP >160 Last Admin: 10/14/18 10:16 Dose: 10 mg Dextrose/Water (D5w) 1,000 mls @ 0 mls/hr IV .Q0M PRN PRN Reason: Hypoglycemia Insulin Human Isoph/Insulin Regular (Humulin 70/30) 20 units SC BID-[facility] Insulin Human Lispro (Humalog) 0 units SC .MILD SLIDING SCALE PRN PRN Reason: Mild Correctional Scale Last Admin: 10/14/18 08:07 Dose: 4 unit Insulin Human Lispro (Humalog) 0 units SC .MODERATE SLIDING SC PRN PRN Reason: Moderate Correctional Scale Last Admin: 10/14/18 11:30 Dose: 8 units Labetalol HCl (Normodyne) 10 mg SLOW IVP Q4H PRN PRN Reason: BP > 160/100 Lisinopril (Zestril) 20 mg PO BID [facility] Lisinopril (Zestril) 10 mg PO NOW [facility] Stop: 10/14/18 13:00 Last Admin: 10/14/18 11:31 Dose: 10 mg Loperamide HCl (Imodium) 2 mg PO PRN PRN PRN Reason: Diarrhea/Loose Stools Loratadine (Claritin) 10 mg PO DAILYPRN PRN PRN Reason: Sinus Symptoms Non-Formulary Medication (Atorvastatin Calcium [Atorvastatin Calcium]) 80 mg PO [facility] Ondansetron HCl (Zofran Odt) 4 mg PO Q6H PRN PRN Reason: Nausea/Vomiting Ondansetron HCl (Zofran) 4 mg IVP Q6H PRN PRN Reason: Nausea/Vomiting Senna/Docusate Sodium (Senokot S) 2 tab PO BID PRN PRN Reason: Constipation Sodium Chloride (Calcium Nasal [place] 0.65%) 0 ml EA NARE QIDPRN PRN PRN Reason: Nasal Congestion Spironolactone (Aldactone) 25 mg PO QAM-[facility] Throat Lozenges (Cepastat Lozenges) 1 sharri PO Q2H PRN PRN Reason: Sore Throat Zolpidem Tartrate (Ambien) 5 mg PO HSPRN PRN PRN Reason: Insomnia
--- NOTE | 2018-10-14 14:03 | PDOC.CTH ---
Cardiology Progress Note - Subjective The pt seen and examined. No overnight events. No cardiac complaints. He took a shower without any cardiac complaints. - Objective Vital Signs Temp Pulse Pulse Pulse Resp BP BP 10/14/18 13:57 57 L 18 10/14/18 13:38 67 10/14/18 11:27 97.7 F 54 L 16 10/14/18 10:16 55 L 170/89 H 10/14/18 08:50 79 68 218/101 H 10/14/18 08:05 98.2 F 62 16 10/14/18 07:48 59 L 18 10/14/18 04:15 98.2 F 56 L 20 BP BP BP Pulse Ox 10/14/18 13:57 10/14/18 13:38 185/92 H 10/14/18 11:27 181/82 H 98 10/14/18 10:16 10/14/18 08:50 161/89 H 10/14/18 08:05 179/79 H 100 10/14/18 07:48 93 L 10/14/18 04:15 168/91 H 97 Admit Weight 142 lb 3.2 oz Weight 142 lb 13.753 oz 10/13/18 10/14/18 10/15/18 06:59 06:59 06:59 Intake Total 813.2 490 Output Total 1800 1675 Balance -986.8 -1185 - Physical Examination General/Neuro: alert & oriented x3 Neck: no JVD present Lungs: CTA Heart: RRR Abdomen: soft Extremities: other: (No edema) - Telemetry Telemetry Rhythm: SR - Labs Result Diagrams: 10/12/18 04:06 10/12/18 04:06 Troponin/CKMB CK-MB (CK-2) 1.5 ng/mL (0-6.6) 10/11/18 03:59 Troponin I 0.097 ng/mL (< 0.028) H 10/11/18 11:05 - Assessment/Plan 1. S/p cardio-resp. arrest. CPR for approx. 6 min - Now stable. No neurologiuc sequella. 2. CAD with s/p LA, s/p ptca/SMS stent to the left circ on 08/28/2018 - Stable ; Coreg 6.25mg BID, Lisinopril 20mg BID, ASA 81mg qd, Plavix, and statin. 3. HTN - Will start Isosorbide dinitrate 10mg BID; 4. Acute on Chronic Diastolic HF - stable with Lasix, spironolactone, BBlocker, and BI. 5. Parox Afib - remains in SR; Resume Amiodarone with 200mg qd because he is on Amiodarone since 08/2018. Per Dr Horvath's note on 08/21/2018, the pt supposes to cont ASA and Plavix until 09/13/2018 and change to Eliquis for 3 months. Will defer to Dr horvath tomorrow. 6. DM type 2 - 7. Pulm. nodule MAR reviewed Pt.seen and eval.by me.I agree with the A/P by the [employer]. No SOB or chest pain.Will be able to d/c when BP stable. He will need vol.restriction. Chest clear. RRR. Review of Systems - Review of Systems Constitutional: reports: no symptoms reported EENTM: reports: no symptoms reported Respiratory: reports: no symptoms reported Cardiac (ROS): reports: no symptoms reported ABD/GI: reports: no symptoms reported : reports: no symptoms reported
[2018-10-14] MEDS ORDERED: Isosorbide Dinitrate 5 MG TAB PO SCH (14:30)
[2018-10-14] MEDS: HumuLIN 70/30 (300 UNITS/3 ML VIAL) SC SCH (17:23)
--- NOTE | 2018-10-14 19:00 | PRG ---
DATE OF SERVICE: 10/14/2018 SUBJECTIVE: Mr. Medley says he feels great. He is sitting on the side of the bed. OBJECTIVE: He is in no distress. He is on room air. His oximetry is 94% to 100% today. He is afebrile. Heart rate in the 50s to 70s. Blood pressure 144/77. Lungs are clear. Heart; regular rhythm. Abdomen is soft. LABORATORY DATA: Glucose was 238. There is no new lab today. IMPRESSION: 1. Status post cardiorespiratory arrest with 6 minutes of CPR with no neurological deficits. 2. Status post PTCA and stenting to the circumflex artery on August 28. 3. Hypertension, still not controlled to an ideal level. 4. Diastolic heart failure. 5. Paroxysmal atrial fib in sinus rhythm. 6. Diabetes. Overall, he is clinically stable from a Pulmonary standpoint, he can go home. The only issues are blood pressure and the cardiology issues with anticoagulation. Job ID: [id number]
[2018-10-14] MEDS ORDERED: Atorvastatin Calcium 40 MG TAB PO SCH (21:00)
[2018-10-14] MEDS: Isosorbide Dinitrate 5 MG TAB PO SCH (21:53)
[2018-10-14] MEDS: Lisinopril 20 MG TAB PO SCH (21:54)
[2018-10-15 08:00] LABS: #Lymphocytes 2.4 thou/uL (1.20-3.40); #Monocytes 0.8 thou/uL (0.11-0.59); %Basophils 0.3 % (0.0-1.0); %Eosinophils 0.5 % (0.0-10.0); %Lymphocytes 25.5 % (21.0-51.0); %Monocytes 8.9 % (0.0-10.0); %Neutrophils 64.8 % (42.0-75.0); Hemoglobin 12.9 g/dL (14.0-18.0); Mean Corpuscular Volume 93.6 fL (78.0-98.0); Mean Platelet Volume 7.4 fL (7.4-10.4); Platelet Count 254 thou/uL (130-400); RBC Distribution Width 12.6 % (11.5-14.5); White Blood Cell (WBC) Count 9.2 thou/uL (4.8-10.8)
[2018-10-15] MEDS ORDERED: Spironolactone 25 MG TAB PO SCH (08:00)
[2018-10-15] MEDS: HumuLIN 70/30 (300 UNITS/3 ML VIAL) SC SCH (08:04)
[2018-10-15] MEDS: Amoxicillin/Potassium Clav 875 MG TAB PO SCH (08:10)
[2018-10-15] MEDS: Enoxaparin Sodium 40 MG/0.4 ML SYRINGE SC SCH (08:10)
[2018-10-15] MEDS: Carvedilol 6.25 MG TAB PO SCH (08:10)
[2018-10-15] MEDS: Furosemide 40 MG TAB PO SCH (08:10)
[2018-10-15] MEDS: Clopidogrel Bisulfate 75 MG TAB PO SCH (08:10)
[2018-10-15] MEDS: Aspirin 81 mg Enteric Coated Tablet PO SCH (08:10)
[2018-10-15] MEDS: Famotidine 20 MG TAB PO SCH (08:11)
[2018-10-15] MEDS: Isosorbide Dinitrate 5 MG TAB PO SCH (08:12)
[2018-10-15] MEDS: Lisinopril 20 MG TAB PO SCH (08:12)
[2018-10-15 08:19] LABS: Anion Gap 12 mmol/L (10-20); BUN (Urea Nitrogen) 13 mg/dL (8.4-25.7); Calc. Creatinine Clearance 85 mL/min (70-130); Calcium 8.8 mg/dL (7.8-10.44); Carbon Dioxide 29 mmol/L (23-31); Chloride 104 mmol/L (98-107); Estimated GFR-MDRD Greater than 90; Glucose 103 mg/dL (80-115); Magnesium 1.9 mg/dL (1.6-2.6); Potassium 3.6 mmol/L (3.5-5.1); Sodium 141 mmol/L (136-145)
[2018-10-15] MEDS ORDERED: hydrALAZINE 25 MG TAB PO SCH ×2 (09:00→15:00)
--- NOTE | 2018-10-15 11:21 | DIS ---
DATE OF ADMISSION: 10/11/2018 DATE OF DISCHARGE: 10/15/2018 PRIMARY CARE PHYSICIAN: Jaswinder Solitario MD DISCHARGE DISPOSITION: Home. PRIMARY DISCHARGE DIAGNOSES: 1. Status post cardiac arrest. 2. Aspiration pneumonia. 3. Acute respiratory failure with hypoxia. 4. Acute diastolic heart failure. 5. Suspected hilar mass. SECONDARY DISCHARGE DIAGNOSES: Coronary artery disease, diabetes type 2, hypertension, dyslipidemia, paroxysmal atrial fibrillation. PRIMARY PROCEDURE/OPERATION: Endotracheal intubation and mechanical ventilatory support. RADIOLOGICAL INVESTIGATION: Chest x-ray on admission showed diffuse interstitial and alveolar infiltration. CT chest, abdomen, and pelvis showed finding suggestive of aspiration pneumonia, left upper lobe lung nodule. Echocardiography showed EF 50% to 55%. Last chest x-ray from the hospital showed suspected left hilar mass. SIGNIFICANT LABORATORY DATA: WBC 9.2, hemoglobin 12.9, platelet 254. INR 1.1. Sodium 141, potassium 3.6, BUN 13, creatinine 0.83, calcium 8.8, magnesium 1.9. Urine drug screen negative. Respiratory culture grew Streptococcus. DISCHARGE MEDICATION: 1. Augmentin 875 mg p.o. b.i.d. for 5 days. 2. Nitroglycerin 0.4 mg sublingual p.r.n. for chest pain as directed. 3. Amiodarone 200 mg p.o. daily. 4. Aspirin 81 mg p.o. daily. 5. Lipitor 80 mg p.o. at bedtime. 6. Coreg 6.25 mg b.i.d. 7. Plavix 75 mg daily. 8. Lasix 40 mg p.o. daily. 9. Humulin 70/30 15 units subcu b.i.d. 10. Hydralazine 25 mg b.i.d. 11. Isordil 10 mg b.i.d. 12. Lisinopril 20 mg p.o. b.i.d. 13. Aldactone 25 mg p.o. daily. CONTRAINDICATION: None. CODE STATUS: Full code. INPATIENT BARK SCALER: Cardiology group and Pulmonary group was following while in hospital. TEST RESULT PENDING ON DISCHARGE: None. ALLERGIES: NO KNOWN DRUG ALLERGIES. DISCHARGE PLAN: Posthospital, the patient will follow up with Dr. Wise and Dr. Horvath as instructed. HOSPITAL COURSE: A 62-year-old male, who was admitted by Dr. Jacobs. Please see his H and P for further details. The patient had cardiac arrest. He required CPR. The patient had acute hypoxic and hypercapnic respiratory failure, required intubation. He had successful resuscitation from cardiac arrest. On admission, he had respiratory acidosis, acute kidney injury, uncontrolled diabetes, lactic acidosis, and abnormal LFT. The patient also had abnormal troponin. Cardiology group and Pulmonary group was following while in hospital. This patient's chest x-ray was suspected for aspiration pneumonia and he was treated with antibiotic therapy and on discharge, we changed to Augmentin. The patient had significant improvement in his chest x-ray other than some pulmonary nodule and some suspected left hilar mass. Pulmonary group is following and they will do further investigation, if needed as an outpatient basis. At this point, the patient is ambulatory, tolerating p.o. well. He is on room air and he is completely asymptomatic. While in hospital, we noted that his blood pressure was running high and that is why, we adjusted blood pressure medication as above. Overall, this patient is on room air and hemodynamically stable. If Cardiology and Pulmonary group okay, then the patient is medically stable for discharge from our perspective. Above-mentioned medication will be sent to his pharmacy, and he will follow up with above-mentioned bi consultant. PHYSICAL EXAMINATION: VITAL SIGNS: Currently, temperature 98.8, pulse 69, respiratory rate 16, saturation 94%, blood pressure 167/89, weight 142 pounds. GENERAL: The patient is currently alert and awake, in no obvious acute distress. HEENT: Head; normocephalic, atraumatic. Eyes; pupils round, and reactive to light. Extraocular muscle intact. ENT; oropharynx within normal limits. Moist mucous membranes. No oral lesion. No pharyngeal erythema. No exudate. NECK: Supple. No JVD. LUNGS: Clear to auscultation without any rhonchi or rales. CARDIAC: S1, S2. Regular without any murmur. ABDOMEN: Soft and benign. EXTREMITIES: No edema. NEUROLOGIC: Nonfocal examination. Overall, the patient is medically stable for discharge today. Job ID: [id number]
[2018-10-15] MEDS: HumaLOG 300 UNITS/3 ML VIAL SC PRN (12:16)
--- NOTE | 2018-10-15 12:30 | PDOC.PN ---
- Subjective Encounter Start Date: 10/15/18 Encounter Start Time: 10:50 -: old records requested/rev Patient seen and examined. No new complaints. No overnight events - Objective Resuscitation Status - Order Detail: 10/11/18 05:02 Resuscitation Status Routine Resuscitation Status: FULL: Full Resuscitation MAR Reviewed: Yes Vital Signs & Weight: Vital Signs (12 hours) Temp Pulse Resp BP BP Pulse Ox 10/15/18 12:13 99 F 66 16 143/88 H 94 L 10/15/18 08:11 69 10/15/18 07:15 97.8 F 49 L 16 176/97 H 94 L 10/15/18 07:09 62 14 94 L 10/15/18 04:17 97.7 F 55 L 18 167/89 H 97 Weight Admit Weight 142 lb 3.2 oz Weight 142 lb 13.753 oz Most Recent Monitor Data Heart Rate from ECG 50 NIBP 160/92 NIBP BP-Mean 114 Respiration from ECG 14 SpO2 92 I&O: 10/14/18 10/15/18 10/16/18 06:59 06:59 06:59 Intake Total 490 1160 Output Total 1675 1800 Balance -1185 -640 Result Diagrams: 10/15/18 07:49 10/15/18 07:49 Additional Labs: Accuchecks 10/15/18 10/15/18 10/14/18 11:04 05:52 20:25 POC Glucose 214 H 69 L 201 H 10/14/18 10/14/18 16:29 10:24 POC Glucose 238 H 313 H EKG Reviewed by me: Yes Phys Exam - Physical Examination Constitutional: NAD HEENT: PERRLA, moist MMs, sclera anicteric Neck: no JVD, supple Respiratory: no wheezing, no rales, no rhonchi Cardiovascular: RRR, no significant murmur, no rub Gastrointestinal: soft, non-tender, no distention, positive bowel sounds Musculoskeletal: no edema, pulses present Neurological: non-focal, normal sensation, moves all 4 limbs Lymphatic: no nodes Psychiatric: normal affect, A&O x 3 Skin: no rash, normal turgor Dx/Plan (1) Acute diastolic (congestive) heart failure Code(s): I50.31 - ACUTE DIASTOLIC (CONGESTIVE) HEART FAILURE Status: Resolved (2) Acute respiratory failure with hypoxia Code(s): J96.01 - ACUTE RESPIRATORY FAILURE WITH HYPOXIA Status: Resolved (3) Aspiration pneumonia Code(s): J69.0 - PNEUMONITIS DUE TO INHALATION OF FOOD AND VOMIT Status: Resolved (4) Cardiac arrest Code(s): I46.9 - CARDIAC ARREST, CAUSE UNSPECIFIED Status: Resolved (5) Paroxysmal A-fib Code(s): I48.0 - PAROXYSMAL ATRIAL FIBRILLATION Status: Chronic (6) Diabetes type 2, controlled Code(s): E11.9 - TYPE 2 DIABETES MELLITUS WITHOUT COMPLICATIONS Status: Chronic (7) Dyslipidemia Code(s): E78.5 - HYPERLIPIDEMIA, UNSPECIFIED Status: Chronic (8) CAD (coronary artery disease) Code(s): I25.10 - ATHSCL HEART DISEASE OF [place] CORONARY ARTERY W/O ANG PCTRS Status: Chronic (9) Hypertension Code(s): I10 - ESSENTIAL (PRIMARY) HYPERTENSION Status: Chronic (10) Hilar mass Code(s): R91.8 - OTHER NONSPECIFIC ABNORMAL FINDING OF LUNG FIELD Status: Acute Comment: reported on chest xray, pulmonary following, will defer to pulmonary - Plan cont current plan of care * medication reviewed as below * symptomatic treatment * see discharge summery. Review of Systems - Review of Systems ENT: negative: Ear Pain, Ear Discharge, Nose Pain, Nose Discharge, Nose Congestion, Mouth Pain, Mouth Swelling, Throat Pain, Throat Swelling, Other Respiratory: negative: Cough, Dry, Shortness of Breath, Hemoptysis, SOB with Excertion, Pleuritic Pain, Sputum, Wheezing Cardiovascular: negative: chest pain, palpitations, orthopnea, paroxysmal nocturnal dyspnea, edema, light headedness, other Gastrointestinal: negative: Nausea, Vomiting, Abdominal Pain, Diarrhea, Constipation, Melena, Hematochezia, Other Genitourinary: negative: Dysuria, Frequency, Incontinence, Hematuria, Retention , Other Musculoskeletal: negative: Neck Pain, Shoulder Pain, Arm Pain, Back Pain, Hand Pain, Leg Pain, Foot Pain, Other - Medications/Allergies Allergies/Adverse Reactions: Allergies Allergy/AdvReac Type Severity Reaction Status Date / Time No Known Allergies Allergy Verified 10/11/18 07:16 Medications: Current Medications Acetaminophen (Tylenol) 650 mg PO Q4H PRN PRN Reason: Headache/Fever/Mild Pain (1-3) Albuterol/Ipratropium (Duoneb) 3 ml NEB Q4H PRN PRN Reason: SOB &/or Wheezing Albuterol/Ipratropium (Duoneb) 3 ml NEB [id number] Last Admin: 10/15/18 07:09 Dose: 3 ml Amoxicillin/Clavulanate Potassium (Augmentin) 875 mg PO Q12HR [facility] Last Admin: 10/15/18 08:10 Dose: 875 mg Aspirin (Ecotrin) 81 mg PO DAILY [facility] Last Admin: 10/15/18 08:10 Dose: 81 mg Atorvastatin Calcium (Lipitor) 80 mg PO HS [facility] Last Admin: 10/14/18 21:53 Dose: 80 mg Calcium Carbonate (Tums) 1,000 mg PO Q4H PRN PRN Reason: Heartburn or Indigestion Carvedilol (Coreg) 6.25 mg PO BID-[facility] Last Admin: 10/15/18 08:10 Dose: 6.25 mg Clopidogrel Bisulfate (Plavix) 75 mg PO DAILY [facility] Last Admin: 10/15/18 08:10 Dose: 75 mg Dextrose/Water (Dextrose 50%) 25 gm SLOW IVP PRN PRN PRN Reason: Hypoglycemia Enoxaparin Sodium (Lovenox) 40 mg SC 0900 [facility] Last Admin: 10/15/18 08:10 Dose: 40 mg Famotidine (Pepcid) 20 mg PO BID [facility] Last Admin: 10/15/18 08:11 Dose: 20 mg Furosemide (Lasix) 40 mg PO DAILY-[facility] Last Admin: 10/15/18 08:10 Dose: 40 mg Glucagon (Glucagon) 1 mg IM PRN PRN PRN Reason: Hypoglycemia Guaifenesin (Robitussin Sf) 200 mg PO Q4H PRN PRN Reason: Cough Hydralazine HCl (Apresoline) 10 mg SLOW IVP Q4H PRN PRN Reason: .SBP >160 Last Admin: 10/14/18 10:16 Dose: 10 mg Hydralazine HCl (Apresoline) 25 mg PO BID [facility] Last Admin: 10/15/18 08:11 Dose: 25 mg Dextrose/Water (D5w) 1,000 mls @ 0 mls/hr IV .Q0M PRN PRN Reason: Hypoglycemia Insulin Human Isoph/Insulin Regular (Humulin 70/30) 20 units SC BID-[facility] Last Admin: 10/15/18 08:04 Dose: Not Given Insulin Human Lispro (Humalog) 0 units SC .MILD SLIDING SCALE PRN PRN Reason: Mild Correctional Scale Last Admin: 10/15/18 12:16 Dose: 3 unit Insulin Human Lispro (Humalog) 0 units SC .MODERATE SLIDING SC PRN PRN Reason: Moderate Correctional Scale Last Admin: 10/14/18 11:30 Dose: 8 units Isosorbide Dinitrate (Isordil) 10 mg PO BID [facility] Last Admin: 10/15/18 08:12 Dose: 10 mg Labetalol HCl (Normodyne) 10 mg SLOW IVP Q4H PRN PRN Reason: BP > 160/100 Lisinopril (Zestril) 20 mg PO BID [facility] Last Admin: 10/15/18 08:12 Dose: 20 mg Loperamide HCl (Imodium) 2 mg PO PRN PRN PRN Reason: Diarrhea/Loose Stools Loratadine (Claritin) 10 mg PO DAILYPRN PRN PRN Reason: Sinus Symptoms Ondansetron HCl (Zofran Odt) 4 mg PO Q6H PRN PRN Reason: Nausea/Vomiting Ondansetron HCl (Zofran) 4 mg IVP Q6H PRN PRN Reason: Nausea/Vomiting Senna/Docusate Sodium (Senokot S) 2 tab PO BID PRN PRN Reason: Constipation Sodium Chloride ([place] Nasal [place] 0.65%) 0 ml EA NARE QIDPRN PRN PRN Reason: Nasal Congestion Spironolactone (Aldactone) 25 mg PO QA-[facility] Last Admin: 10/15/18 08:10 Dose: 25 mg Throat Lozenges (Cepastat Lozenges) 1 sharri PO Q2H PRN PRN Reason: Sore Throat Zolpidem Tartrate (Ambien) 5 mg PO HSPRN PRN PRN Reason: Insomnia
--- NOTE | 2018-10-15 12:49 | PDOC.CTH ---
Cardiology Progress Note - Subjective Feels back to normal. Breathing at baseline. - Objective Vital Signs Temp Pulse Resp BP BP Pulse Ox 10/15/18 12:13 99 F 66 16 143/88 H 94 L 10/15/18 08:11 69 10/15/18 07:15 97.8 F 49 L 16 176/97 H 94 L 10/15/18 07:09 62 14 94 L 10/15/18 04:17 97.7 F 55 L 18 167/89 H 97 Admit Weight 142 lb 3.2 oz Weight 142 lb 13.753 oz 10/14/18 10/15/18 10/16/18 06:59 06:59 06:59 Intake Total 490 1160 Output Total 1675 1800 Balance -1185 -640 - Physical Examination General/Neuro: alert & oriented x3, NAD Neck: no JVD present Lungs: CTA, unlabored respirations Heart: RRR Abdomen: NT/ND Extremities: other: (no edema) - Telemetry Telemetry Rhythm: NSR - Labs Result Diagrams: 10/15/18 07:49 10/15/18 07:49 Troponin/CKMB CK-MB (CK-2) 1.5 ng/mL (0-6.6) 10/11/18 03:59 Troponin I 0.097 ng/mL (< 0.028) H 10/11/18 11:05 - Assessment/Plan 1. s/p cardio-resp. arrest. CPR for approx. 6 min. Stable. No obvious neurologic sequella. 2. CAD. s/p LA, s/p ptca/stent to the left circ. No ACS. 3. HTN. PLAN: - Increase hydralazine to 50 mg TID. - May discharge home. - Follow up in 4 weeks in the office.
[2018-10-15 13:30] VITALS: BMI 21.1
[2018-10-15 15:40] VITALS: BP 174/84; TEMP 97.7
[2018-10-15] MEDS ORDERED: Apixaban 5 MG TAB PO SCH (21:00)
== END 2018-10-15 16:26 | disposition home or self-care (01) | DRG 208 ==
LOC: ERS 03:46 → CCU 05:02 → 2NO 10-13 21:09
PROVIDERS: ADMIT Hospitalist; ATTEND Hospitalist
PROC: 0BH17EZ Insertion of Endotracheal Airway into Trachea, Via Natural or Artificial Opening (ICD-10-PCS; principal; 2018-10-11)
PROC: 5A1945Z Respiratory Ventilation, 24-96 Consecutive Hours (ICD-10-PCS; 2018-10-11)
DX: J96.01 Acute respiratory failure with hypoxia (principal); J69.0 Pneumonitis due to inhalation of food and vomit; I50.33 Acute on chronic diastolic (congestive) heart failure; I46.9 Cardiac arrest, cause unspecified; I21.A1 Myocardial infarction type 2; E87.2 Acidosis; N17.9 Acute kidney failure, unspecified; J96.02 Acute respiratory failure with hypercapnia; I11.0 Hypertensive heart disease with heart failure; E78.5 Hyperlipidemia, unspecified; E83.41 Hypermagnesemia; E11.65 Type 2 diabetes mellitus with hyperglycemia; F12.10 Cannabis abuse, uncomplicated; I25.10 Atherosclerotic heart disease of native coronary artery without angina pectoris; R91.8 Other nonspecific abnormal finding of lung field; I48.0 Paroxysmal atrial fibrillation; Z95.5 Presence of coronary angioplasty implant and graft; Z79.899 Other long term (current) drug therapy
CPT/HCPCS: 36415; 36416; 51702; 70450; 71045; 71260; 74177; 80048; 80053; 80306; 80307; 81003; 81015; 82010; 82553; 82805; 83605; 83735; 83880; 84484; 85025; 85610; 85730; 87070; 87077; 87205; 92950; 93005; 93306; 93798; 94002; 94003; 94640; 96365; J0171; J0360; J0692; J1650; J1815; J1825; J1956; J2060; J2270; J2704; J2920; J3490; J7620; S0028

== ENCOUNTER 2019-12-02 17:24 | Inpatient (IN) | payer MEDICARE, OTHER ==
[~2019-12-02 17:24] MED LIST changes: -ISOVUE-370 76%-LOCM 1 ML ONE; +Iopamidol-370 76% 500 ML 1 ML ONE
[2019-12-02 17:37] LABS: Actual Bicarbonate (HCO3a) 21.5 mEq/L (22-28); Analyzer IN Cardio ER; Base Excess (BEa) -8.3 mEq/L (-2.0 to +3.0); Calcium, Ionized (arterial) 1.08 mmol/L (1.12-1.30); Carboxyhemoglobin (COHb) 4.2 gm% (0.0-3.0); Hemoglobin (Hb) 13.7 g/dL (14.0-18.0); O2 Tension (PaO2), arterial 79.9 mmHg (> 80.0); Potassium - ABG Lab 3.86 mmol/L (3.70-5.30)
[2019-12-02 17:39] LABS: ALV-art Gradient 267.775 (0-20); CO2 Tension 64.1 mmHg (35.0-45.0); Puncture Site LRA; pH, Arterial 7.14 (7.35-7.45)
--- NOTE | 2019-12-02 17:45 | RAD ---
Exam: Chest one view HISTORY:Unresponsive patient Comparison: 12/02/2019 at 4:33 PM FINDINGS: Cardiac silhouette: Normal Aorta: Unremarkable Pulmonary vessels: Normal Costophrenic angles: Clear Lines and tubes: Endotracheal tube just beyond the clavicles. Nasogastric tube extends beyond the caitlin phragm. Distal tip is not seen. LUNGS: Hyperinflated. Extensive interstitial opacities throughout the lung parenchyma. Focal left hil ar opacity. Correlation made with a CT from 10/11/2018 demonstrate a left upper lobe nodule. There is presumed interval increase in size. Pneumothorax: None Osseous abnormalities: None IMPRESSION: 1. Hyperinflation. Diffuse interstitial opacities suggesting areas of fibrosis. Superimposed infiltra te as well as alveolar opacities cannot be excluded. 2. Interval progression of a left hilar mass with superimposed adjacent atelectasis or pneumonia.
--- NOTE | 2019-12-02 18:25 | CT ---
Exam: Head CT without contrast HISTORY: Mental status. Intubated patient. Unresponsive patient. COMPARISON: 10/11/2018 FINDINGS: Hemorrhage: No intraparenchymal hemorrhage or extra-axial hematoma. Brain parenchyma: Cortical reid-white matter differentiation is preserved. No mass effect or midline shift. Basilar cisterns are patent. Ventricular system: Ventricles and sulci are patent and symmetric. Calvarium: Intact. Sinuses and mastoid air cells: Adequate aeration. IMPRESSION: No acute intracranial process.
--- NOTE | 2019-12-02 18:44 | CT ---
Exam: CTA chest with 3-D rendering: CTA abdomen with 3-D rendering: HISTORY: Unresponsive patient. COMPARISON: 08/14/2018 TECHNIQUE: CT angiogram of the thoracic and abdominal aorta performed in the axial plane. Three-dimen sional reformatted images are submitted for interpretation. FINDINGS: Chest CT: Mediastinum: No mass, lymphadenopathy or hematoma Heart: Normal heart size. No significant pericardial fluid. Coronary arteries: No significant atherosclerotic disease Trachea and central bronchi: Patent Pleural spaces: Small bilateral pleural effusions Right lung: Extensive groundglass opacities along with septal thickening throughout the right lung. T here are focal alveolar opacities which are presumed to be due to infiltrate. There is mild peribronchial thickening involving the right upper lobe bronchus and bronchioles as well as the right lower lobe bronchioles. Left lung: Spiculated left suprahilar mass measures 3.3 x 4.2 cm. There is groundglass opacification and septal thickening involving the left lung. There is mild peribronchial thickening involving the left lower lobe. There are patchy alveolar opacities in the left lower lobe which are presumed to be due to infiltrate. Pneumothorax: None Abdomen CT: Gallbladder: No acute abnormality Portal vein: Cannot be assessed due to technique Solid organs: Appropriate arterial phase enhancement of the liver, spleen, pancreas and adrenal gland s. Diffuse hypoattenuation liver does suggest hepatic steatosis. Kidneys: There is appropriate enhancement of the left and right kidney. There are small filling defec ts involving the left and right kidney which may represent a striated nephrogram possibly due to pyelonephritis or renal cortical infarcts. Bilaterally no obstructive uropathy. Mesentery: No mass, lymphadenopathy, free air or free fluid. Decreased visceral fat limits evaluation . Alimentary canal: Limited evaluation by the lack of oral contrast. No evidence of a bowel obstruction . Normal ileocecal junction. Osseous structures: No lytic or blastic lesions. There is diffuse bone demineralization. CT ANGIOGRAM: Thoracic aorta: The root of the aorta, ascending thoracic aorta, aortic arch and descending thoracic aorta do not demonstrate any aneurysm or dissection. Minimal atherosclerosis. The origin of the great vessels of the neck are also patent. Pulmonary arteries: Appropriate contrast opacification. No filling defects to suggest thromboembolism to the level of the segmental arteries. Abdominal aorta: Appropriate enhancement and luminal diameter. Aortic bifurcation and visualized crispin c arteries demonstrate minimal atherosclerosis. The celiac artery origin, superior mesenteric artery origin, left and right renal artery ostia have appropriate enhancement and luminal diameter. I nferior mesenteric artery origin is appropriate enhancement and luminal diameter.. Lines and tubes: Endotracheal tube is at the level of clavicles. Nasogastric tube terminates in the g astric cardia. IMPRESSION: 1. No evidence of aneurysm or dissection. No significant vascular occlusion 2. Spiculated left upper lobe mass, worrisome for neoplasm 3. Bilateral lung parenchymal septal thickening and groundglass opacities. Correlate for edema or inf iltrate. Additional patchy lung parenchymal opacities are identified suspicious for a infiltrates. Atypical pneumonia, such as COVID 19 is a consideration given peripheral lung parenchymal distributio n. Correlate clinically. 4. Hypodensities involving the left or right renal cortex with a subtle striated nephrogram phase. Co rrelate for pyelonephritis versus renal cortical infarcts.
[2019-12-02] MEDS ORDERED: Acetaminophen 650 MG Suppository ONE (18:47)
[2019-12-02] MEDS ORDERED: Cefepime 2 GM VIAL ONE (18:47)
[2019-12-02] MEDS ORDERED: Fentanyl 100 MCG/2 ML VIAL ONE (18:52)
[2019-12-02 18:54] LABS: Bilirubin Negative (Negative); Blood, Urine Moderate (Negative); Glucose, Urine (Dipstick) 500 mg/dL (Negative); Ketone, Urine Negative (Negative); Leukocyte Negative (Negative); Nitrite Negative (Negative); Protein, Urine (Dipstick) 100 mg/dL (Neg-Trace); pH, Urine 5.5 (5.0-9.0)
[2019-12-02] MEDS ORDERED: fentaNYL Citrate/PF 2,000 MCG in Sodium Chloride 0.9% 60 ML IV SCH (18:55)
[2019-12-02 18:56] LABS: Clarity Hazy (Clear)
--- NOTE | 2019-12-02 18:58 | RAD ---
Exam: Chest one view HISTORY:Unresponsive patient. Intubated. Comparison: 12/02/2019 FINDINGS: Lines and tubes: Stable endotracheal and nasogastric tube. Distal tip of the nasogastric tube is at t he gastric cardia. Consider advancement. Interval placement of a right-sided internal jugular central venous catheter distal tip projects over the expected region of the superior vena cava Stable cardiomegaly and atherosclerosis Stable lung parenchymal opacities. No pneumothorax. IMPRESSION: 1. Consider advancement of nasogastric tube. 2. Right-sided internal jugular central venous catheter as above. No pneumothorax.
[2019-12-02 18:59] LABS: Bacteria/HPF None Seen HPF (None Seen); RBC/HPF 0-3 HPF (0-3); Squamous Epithelial 0-3 HPF (0-3); WBC/HPF 0-3 HPF (0-3)
[2019-12-02 19:08] LABS: SARS-CoV-2 NAA Rapid Test Not Detected (NotDetected)
[2019-12-02 19:09] LABS: Actual Bicarbonate (HCO3a) 20.1 mEq/L (22-28); Analyzer IN Cardio ER; Base Excess (BEa) -5.2 mEq/L (-2.0 to +3.0); CO2 Tension 38.3 mmHg (35.0-45.0); Calcium, Ionized (arterial) 1.02 mmol/L (1.12-1.30); Carboxyhemoglobin (COHb) 3.1 gm% (0.0-3.0); Hemoglobin (Hb) 13.7 g/dL (14.0-18.0); O2 Tension (PaO2), arterial 119.5 mmHg (> 80.0); Potassium - ABG Lab 4.49 mmol/L (3.70-5.30); pH, Arterial 7.34 (7.35-7.45)
[2019-12-02] MEDS ORDERED: Acetaminophen 650 MG Suppository PR PRN (19:50)
--- NOTE | 2019-12-02 19:55 | PDOC.HHP ---
Hospitalist HPI - History of Present Illness respiratoty failure History of Present Illness: most of the history obtain from transfer papers and emr. during my evaluation pt was sedated and on MV no family members were present at the moment of my evaluation Case of an 63y/o male with pmhx of dm, htn, hld and hx of a cva who [facility] with respiratory failure. Parents note his neighbor saw him collapse and and brought him to the emergency department. When he arrived to the emergency department he was hypoxic in the low 80s had agonal breathing and was not responsive to the emergency physician there. The patient was intubated aand flown to the emergency department here. He is also placed on a nitroglycerin drip because of severe hypertension going along with his unresponsive event. during my evaluation nitro drip was turned of b/p in the low 100s systolic Hospitalist ROS - Review of Systems ROS unobtainable: due to endotracheal tube Hospitalist History - Past Surgical History Other Surgical History: unable to asses - Family History Other Family History: unable to asses - Exam General - other findings: sedated and in MV, Eye: PERRL, anicteric sclera ENT: normocephalic atraumatic, no oropharyngeal lesions Neck: supple, symmetric, no JVD Heart: RRR, no murmur, no gallops Respiratory: CTAB, no wheezes, no rales Gastrointestinal: soft, non-tender, non-distended Extremities: no cyanosis, no clubbing, no edema Skin: normal turgor, no lesions, no rashes Neurological: cranial nerve grossly intact, normal sensation to touch Musculoskeletal: normal tone Psychiatric - other findings: sedated Hospitalist Results - Labs Lab results: ABG pH 7.14 (7.35-7.45) L* 12/02/19 17:34 ABG pCO2 64.1 mmHg (35.0-45.0) H* 12/02/19 17:34 ABG pO2 79.9 mmHg (> 80.0) 12/02/19 17:34 Lactic Acid 1.1 mmol/L (0.5-2.2) 12/02/19 18:36 Urine Ketones Negative mg/dL (Negative) 12/02/19 17:45 Urine Blood Moderate (Negative) A 12/02/19 17:45 Urine Nitrite Negative (Negative) 12/02/19 17:45 Ur Leukocyte Esterase Negative (Negative) 12/02/19 17:45 Urine RBC 0-3 HPF (0-3) 12/02/19 17:45 Urine WBC 0-3 HPF (0-3) 12/02/19 17:45 Ur Squamous Epith Cells 0-3 HPF (0-3) 12/02/19 17:45 Urine Bacteria None Seen HPF (None Seen) 12/02/19 17:45 Hospitalist H&P A/P - Problem (1) Respiratory failure requiring intubation Code(s): J96.90 - RESPIRATORY FAILURE, UNSP, UNSP W HYPOXIA OR HYPERCAPNIA Status: Acute (2) Pneumonia Code(s): J18.9 - PNEUMONIA, UNSPECIFIED ORGANISM Status: Acute (3) Hilar mass Code(s): R91.8 - OTHER NONSPECIFIC ABNORMAL FINDING OF LUNG FIELD Status: Acute (4) CAD (coronary artery disease) Code(s): I25.10 - ATHSCL HEART DISEASE OF [place] CORONARY ARTERY W/O ANG PCTRS Status: Chronic (5) Diabetes type 2, controlled Code(s): E11.9 - TYPE 2 DIABETES MELLITUS WITHOUT COMPLICATIONS Status: Chronic (6) Dyslipidemia Code(s): E78.5 - HYPERLIPIDEMIA, UNSPECIFIED Status: Chronic (7) Hypertension Code(s): I10 - ESSENTIAL (PRIMARY) HYPERTENSION Status: Chronic (8) Paroxysmal A-fib Code(s): I48.0 - PAROXYSMAL ATRIAL FIBRILLATION Status: Chronic (9) Syncope Code(s): R55 - SYNCOPE AND COLLAPSE Status: Acute - Plan Plan: 63y/o male with the stated pmhx, who collapsed getting on his car, was witness by neighbour who brought him to hospital. at arrival patient was unresponsive with 02 sat in the low 80s for which he was placed on MV respiratory failure on MV, hypoxic and hypercapnic - on MV - pulmnologist consulted - sedation protocol - initial abgs with cop2 100 with low 02 pneumonia - cobid r/o - tested negative for covid - chest CT concerning for covid patern - started on cefepime + vanc - f/u cultures - ID consulted - f/u inflmmation markers - no significant leukocytosis - initial LA at 9, now normalize 1.1 - ID evaluation syncope - serial troponins - 2d echo - bnp - likely secondary to respiratory failure DM - long acting insulin - ss and acc - adjust as necessary - npo paroxysmal afib - continue elliquis - continue rate control hypertency urgency - systolic b/p was over 200s - started on tridil drip - now normotensive, was discontinued
[2019-12-02] MEDS: Sodium Chloride 0.9% 1,000 ML IV SCH (21:46)
[2019-12-02] MEDS: Cefepime 2 GM in Sodium Chloride 0.9% 100 ML IVPB SCH (21:55)
[2019-12-02] MEDS: Famotidine/PF 20 mg/2ml Vial SLOW IVP SCH (21:55)
[2019-12-02] MEDS ORDERED: Dextrose 5% in Water 1,000 ML IV PRN (21:59)
[2019-12-02] MEDS ORDERED: Dextrose 50% Abboject 50 ML SYRINGE SLOW IVP PRN (21:59)
[2019-12-02 22:11] LABS: ALV-art Gradient 260.425 (0-20); Puncture Site LBA
[2019-12-02 22:31] LABS: Troponin I 0.123 ng/mL (< 0.028)
[2019-12-03] MEDS: Insulin Regular 300 UNITS/3 ML VIAL SC PRN (00:51)
[2019-12-03 03:22] LABS: Troponin I 0.158 ng/mL (< 0.028)
[2019-12-03] MEDS ORDERED: DISCONTINUE PREVIOUS NARCOTIC PAIN MEDICATIONS AND BENZODIAZEPINES FS SCH (04:54)
[2019-12-03] MEDS ORDERED: Morphine 2 MG/ML VIAL SLOW IVP PRN (04:54)
[2019-12-03] MEDS ORDERED: Lorazepam 2 MG/ML VIAL SLOW IVP PRN (04:54)
[2019-12-03] MEDS ORDERED: Propofol BOLUS 1,000 MG/100 ML VIAL IV PRN (04:54)
[2019-12-03] MEDS ORDERED: Fentanyl BOLUS 250 ML IVPB PRN (04:54)
[2019-12-03 05:17] LABS: Band 4 % (5-11); Hemoglobin 12.8 g/dL (14.0-18.0); Lymphocytes 29 % (21-51); MDiff Complete? YES; Mean Corpuscular HGB CONC 32.1 g/dL (32.0-36.0); Mean Corpuscular Hemoglobin 30.2 pg (27.0-31.0); Mean Corpuscular Volume 93.8 fL (78.0-98.0); Mean Platelet Volume 7.5 fL (7.4-10.4); Monocytes 9 % (0-10); Neutrophil 58 % (42-75); Platelet Count 200 thou/uL (130-400); Platelet Morphology Comment Appears Adequate; RBC Distribution Width 11.4 % (11.5-14.5); Red Blood Cell (RBC) Count 4.24 mill/uL (4.70-6.10); White Blood Cell (WBC) Count 6.9 thou/uL (4.8-10.8)
[2019-12-03 05:21] LABS: Anion Gap 9 mmol/L (10-20); BUN (Urea Nitrogen) 9 mg/dL (8.4-25.7); Bilirubin, Total 0.6 mg/dL (0.2-1.2); Calc. Creatinine Clearance 86 mL/min (70-130); Calcium 7.1 mg/dL (7.8-10.44); Carbon Dioxide 24 mmol/L (23-31); Chloride 108 mmol/L (98-107); Estimated GFR-MDRD Greater than 90; Glucose 93 mg/dL (80-115); Potassium 3.8 mmol/L (3.5-5.1); Protein, Total 5.5 g/dL (5.8-8.1); Sodium 137 mmol/L (136-145)
[2019-12-03 05:22] LABS: ALT (SGPT) 46 U/L (8-55); AST (SGOT) 77 U/L (5-34); Alkaline Phosphatase 395 U/L (40-110); Globulin 2.5 g/dL (2.4-3.5)
[2019-12-03] MEDS ORDERED: hydrALAZINE 20 MG/ML VIAL SLOW IVP PRN (05:25)
[2019-12-03] MEDS: Cefepime 2 GM in Sodium Chloride 0.9% 100 ML IVPB SCH ×3 (05:28→21:36)
[2019-12-03] MEDS: Propofol 1,000 MG/100 ML VIAL IV PRN ×4 (05:29→22:16)
[2019-12-03] MEDS: Sodium Chloride 0.9% 1,000 ML IV SCH (06:01)
[2019-12-03 06:55] LABS: Actual Bicarbonate (HCO3a) 20.4 mEq/L (22-28); CO2 Tension 38.9 mmHg (35.0-45.0); Calcium, Ionized (arterial) 1.07 mmol/L (1.12-1.30); Carboxyhemoglobin (COHb) 0.8 gm% (0.0-3.0); Hemoglobin (Hb) 13.4 g/dL (14.0-18.0); O2 Tension (PaO2), arterial 99.6 mmHg (> 80.0); Potassium - ABG Lab 3.53 mmol/L (3.70-5.30); pH, Arterial 7.34 (7.35-7.45)
[2019-12-03 07:26] LABS: ALV-art Gradient 279.575 (0-20); Puncture Site LRA
--- NOTE | 2019-12-03 07:47 | RAD ---
EXAM: Single view of the chest HISTORY: Respiratory failure COMPARISON: 12/02/2019 FINDINGS: Single view of the chest shows a normal sized cardiomediastinal silhouette. The lines and tubes are unchanged in position. There are stable bilateral perihilar opacities. The bones are unremarkable IMPRESSION: Stable bilateral perihilar opacities.
[2019-12-03] MEDS: Famotidine/PF 20 mg/2ml Vial SLOW IVP SCH ×2 (08:47→20:04)
[2019-12-03] MEDS: Vancomycin 1 GM in Premix Bag 1 BAG IVPB SCH ×2 (08:47→20:03)
[2019-12-03] MEDS ORDERED: Furosemide 40 MG/4 ML VIAL SLOW IVP SCH (09:15)
--- NOTE | 2019-12-03 09:58 | CON ---
DATE OF CONSULTATION: HISTORY OF PRESENT ILLNESS: A 63-year-old gentleman who is intubated on the vent, sedated on Diprivan and fentanyl. He had been here in the hospital before who presented with syncopal episode, collapsed, brought to the hospital because of severe hypoxic respiratory failure, agonal respirations, intubated, transferred to [facility]. He was placed initially apparently on nitroglycerin drip. They gave a list of his medicine from home which includes 1. Hydralazine 50 three times a day. 2. Aldactone 25. 3. Nitrostat. 4. Zestril 20. 5. Isordil 10. 6. Insulin. 7. Lasix 40. 8. Coreg 6.25. 9. Aspirin. 10. Eliquis 5. 11. Cordarone 200. His medicines have to be verified. His previous visit here was about a year ago. Multiple CPRs in the past. He has history of CVA, hypertension, CHF. PREVIOUS SURGERIES: Apparently none recently. PHYSICAL EXAMINATION: VITAL SIGNS: Pulse 87, blood pressure 110/60, saturations 96%, respirations 14. He is sedated. CHEST: Minimal rhonchi. CARDIAC: Normal S1, S2. No gallop. ABDOMEN: No masses. HEENT: Pupils are pinpoint. LABORATORY DATA: White count 6000, H and H are 12 and 38, platelet count is 200. D-dimer is 6. PO2 is 99, pCO2 is 38%, pH 7.34, PEEP of 10, 60%, rate of 20. Lytes are normal. BNP is elevated at 1297. X-ray shows CHF. CT brain done yesterday which shows no acute process. CT dissection chest was done, which showed airspace disease, no dissection, left upper lung mass, clearly visible on the chest x-ray. IMPRESSION: 1. Respiratory failure, syncopal episode, possibly cardiac arrhythmias, congestive heart failure, diastolic dysfunction. 2. Chronic obstructive pulmonary disease .. 3. Possible pneumonia, left upper lung mass, probably bronchogenic carcinoma. 4. Probably need to restart all his medications from home. Decrease sedation, try to wean off in the next 48 hours. Outpatient workup regarding his lung mass. We will try and get additional information from family as they arrive. This is a 45-minute critical care time. Job ID: [id number]
[2019-12-03] MEDS: Isosorbide Dinitrate 5 MG TAB PO SCH ×2 (10:14→20:04)
[2019-12-03] MEDS: hydrALAZINE 25 MG TAB PO SCH ×3 (10:15→20:06)
[2019-12-03] MEDS: Acetaminophen 325 MG TAB PO PRN ×2 (12:24→20:04)
--- NOTE | 2019-12-03 13:33 | PQF ---
Q56 2019 [facility] Updated: CLINICAL DOCUMENTATION CLARIFICATION FORM: Dear Dr. Valenzuela Date Please exercise your independent, professional judgment in responding to the clarification form. Clinical indicators are provided on the bottom of this form for your review. Please check appropriate box(es): [ ] Sepsis due to: Due to: [ ] Device (please specify) [ ] Implant [ ] Graft [ ] Infusion Due to: [ ] Procedure (please specify) [ ] Severe sepsis with associated acute organ dysfunction: [ ] Acute Respiratory Failure [ ] Acute Kidney injury w/o ATN [ ] Acute Kidney Injury w ATN [ ] Encephalopathy (metabolic) (septic) [ ] Disseminated Intravascular Coagulopathy (DIC) [ ] Hepatic Failure [ ] Additional/Other: please specify: [ ] Septic Shock [ ] Localized infection without sepsis [ ] SIRS due to non-infectious process (please specify etiology) [ ] with organ dysfunction [ ] without organ dysfunction [ ] Other diagnosis [ ] Unable to determine In addition, please specify: Present on Admission (POA): [ ] Yes [ ] No [ ] Unable to determine For continuity of documentation, please document condition throughout progress notes and discharge summary. Thank You. ER NOTE: "SEVERE SEPSIS" PULSE 126 RR 26 TEMP 101.1 RISKS: PNEUMONIA ([id number]) TREATMENT: VANCOMYCIN (ER-PRESENT) CEFEPIME (ER-12/01-PRESENT) IV FLUIDS (ER-PRESENT) BLOOD CULTURES 12/01 MECHANICAL VENT CRITICAL CARE MONITORING This is a permanent part of the Medical Record MTDD
--- NOTE | 2019-12-03 15:31 | CON ---
DATE OF CONSULTATION: 12/03/2019 REASON FOR CONSULTATION: Heart failure and respiratory insufficiency. HISTORY OF PRESENT ILLNESS: Mr. Medley is a 63-year-old gentleman, who comes to the hospital, was brought in for a respiratory arrest, agonal breathing. He was emergently intubated to protect his airway and admitted for further evaluation and care. During his admission, blood work was obtained that showed he had a negative COVID test. He had elevated BNP, so Cardiology has been consulted for further evaluation and care. He was admitted with similar scenario almost a year ago. He had an echocardiogram, last EF was in October of 2018 and his EF was 50% to 55%. He had no major valvular abnormality. On my evaluation today, he is sedated and intubated, unable to provide any history. His blood pressure was very high and had to be put on nitroprusside drip initially. Blood pressure is actually doing a lot better now and is borderline low now. PAST MEDICAL HISTORY: 1. Coronary artery disease, status post bare-metal stent to the left circumflex back in August of 2018 in the setting of an acute [place]. 2. Diabetes. 3. History of hemoptysis in the past. 4. History of episodes of CPR in the past. 5. CVA. 6. Hypertension. 7. History of diastolic heart failure in the past. 8. Paroxysmal atrial fibrillation. PAST SURGICAL HISTORY: None. OUTPATIENT MEDICATIONS: 1. Hydralazine. 2. Lisinopril. 3. Imdur. 4. Carvedilol. 5. Aldactone. 6. Sublingual nitroglycerin. 7. Humulin N 70/30. 8. Lasix. 9. Atorvastatin. 10. Aspirin. 11. Eliquis. 12. Augmentin. 13. Amiodarone. These medications have not been confirmed and he is unable to confirm any as he is sedated and intubated. ALLERGIES: NO KNOWN DRUG ALLERGIES PER CHART REVIEW. PHYSICAL EXAMINATION: VITAL SIGNS: Temperature 99.4, however, today at noon 101.9, pulse 97, respiratory rate 13, saturating 98% on 60% FiO2, and blood pressure 103/67. GENERAL: Sedated and intubated. NECK: Supple. LUNGS: Coarse breath sounds. ABDOMEN: Soft. CARDIOVASCULAR: S1 and S2. No S3 or S4. No murmurs. Tachycardic in the 110s. EXTREMITIES: No edema. SKIN: Warm and dry. LABORATORY DATA: Laboratory work was reviewed. CBC with a white count of 6, hemoglobin of 12, hematocrit of 39, platelet count of 200. Coags, D-dimer was really high. ABG was reviewed. Chemistries were reviewed. He has normal BUN and creatinine, GFR of greater than 90. Troponin was 0.12, 0.15, and procalcitonin was 7.7, which is normal. Albumin was 3.0. BNP was 1297, which is the highest it has ever been. UA was reviewed. Serology, COVID-19 PCR was not detected. Blood cultures negative so far. Urine culture is negative. CT dissection protocol showed no evidence of dissection. There is a spiculated mass in the left upper lobe concerning for cancer. There is bilateral lung parenchymal septal thickening and ground-glass opacities, could be related to edema versus infiltrates and atypical pneumonia such as COVID-19. Hypodensities on the right renal cortex, could be pyelonephritis versus renal cortical infarcts. ASSESSMENT: 1. Acute hypoxic respiratory insufficiency. 2. Possible aspiration pneumonia. 3. Acute decompensated heart failure, likely diastolic dysfunction related to hypertension, hypertensive emergency. 4. Hypertensive emergency. Blood pressure is a lot better now. 5. History of coronary artery disease, currently no acute coronary syndrome. PLAN: 1. Agree with restarting home medications. His blood pressure is doing a lot better now. We will start backing off a little bit if his blood pressure starts to come too low. 2. He may be looking at a septic type picture now as he might have aspirated during his initial event. 3. We will repeat an echocardiogram to evaluate LV function and valvular structures. His last EF was normal. 4. The patient is severely ill and would not be unexpected. 5. Agree with continued antibiotics. 6. We would hold off on any antihypertensive at this time. Thank you for letting us to participate in the care of your patient. We will follow. 45 minutes of critical care time in the information with his echocardiogram. Job ID: [id number]
[2019-12-03 18:34] LABS: SARS-CoV-2 NAA Rapid Test Not Detected (NotDetected)
--- NOTE | 2019-12-03 19:41 | PDOC.HOSPP ---
- Subjective Encounter Date: 12/03/19 Encounter Time: 19:35 Subjective: Patient was seen for follow-up regarding sepsis. He is intubated, mechanically ventilated, unable to complete review of systems. - Objective Vital Signs & Weight: Vital Signs (12 hours) Temp Pulse Resp BP Pulse Ox 12/03/19 19:04 103 H 12/03/19 18:00 12 12/03/19 16:00 101.1 F H 12 12/03/19 14:57 86 103/67 12/03/19 14:23 97 103/67 12/03/19 14:00 13 12/03/19 13:08 97 126/77 12/03/19 13:07 98 11 L 97 12/03/19 12:00 101.9 F H 12 12/03/19 10:35 103 H 128/81 12/03/19 10:15 91 131/91 H 12/03/19 10:00 14 12/03/19 08:00 20 94 L Weight Admit Weight 142 lb Weight 142 lb 13.753 oz Most Recent Monitor Data Heart Rate from ECG 98 NIBP 157/92 NIBP BP-Mean 113 Respiration from ECG 20 SpO2 97 I&O: 12/02/19 12/03/19 12/04/19 06:59 06:59 06:59 Intake Total 1747.6 822 Output Total 610 1455 Balance 1137.6 -633 Result Diagrams: 12/03/19 04:00 12/03/19 04:00 Additional Labs: Accuchecks 12/03/19 12/03/19 12/03/19 10:14 04:19 01:01 POC Glucose 113 H 97 161 H 12/02/19 22:30 POC Glucose 223 H Labs and MAR reviewed by me. Hospitalist ROS - Review of Systems ROS unobtainable: due to endotracheal tube - Medication Medications: Active Medications Generic Name Dose Route Start Last Admin Trade Name Freq PRN Reason Stop Dose Admin Acetaminophen 650 mg 12/02/19 19:50 12/03/19 12:24 Tylenol PO 650 mg Q4H PRN Administration Headache/Fever/Mild Pain (1-3) Albuterol/Ipratropium 3 ml 12/03/19 13:00 12/03/19 19:03 Duoneb NEB 3 ml [id number] DAGO Administration Famotidine 20 mg 12/02/19 21:00 12/03/19 08:47 Pepcid SLOW IVP 20 mg Q12HR DAGO Administration Hydralazine HCl 10 mg 12/03/19 05:25 12/03/19 05:27 Apresoline SLOW IVP 10 mg Q6H PRN Administration SBP GREATER THAN 160 Hydralazine HCl 50 mg 12/03/19 09:00 12/03/19 14:23 Apresoline PO Not Given TID DAGO Cefepime HCl 2 gm/ Sodium 100 mls @ 200 mls/hr 12/02/19 22:00 12/03/19 14:23 Chloride IVPB 100 mls Q8HR DAGO Administration Vancomycin HCl 1 gm/ Device 200 mls @ 200 mls/hr 12/03/19 08:00 12/03/19 08: 47 IVPB 200 mls 0800,2000 DAGO Administration Insulin Human Regular 0 units 12/02/19 21:59 12/03/19 00:51 Humulin R SC 2 unit .MODERATE SLIDING SC PRN Administration Moderate Correctional Scale Isosorbide Dinitrate 10 mg 12/03/19 09:00 12/03/19 10:14 Isordil PO 10 mg BID DAGO Administration Propofol 1,000 mg 12/03/19 04:54 12/03/19 18:59 Diprivan IV 01/02/20 04:54 1,000 mg INF PRN Administration TO ACHIEVE GOAL RASS Protocol Sodium Chloride 10 ml 12/02/19 21:00 12/03/19 08:47 Flush - Normal Saline IVF 10 ml Q12HR DAGO Administration - Exam General - other findings: Intubated, mechanically ventilated Neck: supple, symmetric, no thyromegaly, no lymphadenopathy Heart: RRR, no gallops, no rubs, normal peripheral pulses Respiratory: CTAB, no wheezes, no rales, no ronchi Gastrointestinal: soft, non-tender, non-distended, normal bowel sounds Skin: no rashes Psychiatric - other findings: Unable to assess Hosp A/P - Plan - Assessment (1) Sepsis Status: Due to pneumonia, Acute, [id number] on admission (2) Pneumonia Code(s): J18.9 - PNEUMONIA, UNSPECIFIED ORGANISM Status: Acute (3) Respiratory failure requiring intubation Code(s): J96.90 - RESPIRATORY FAILURE, UNSP, UNSP W HYPOXIA OR HYPERCAPNIA Status: Acute (4) Hilar mass Code(s): R91.8 - OTHER NONSPECIFIC ABNORMAL FINDING OF LUNG FIELD Status: Acute (5) Syncope Code(s): R55 - SYNCOPE AND COLLAPSE Status: Acute (6) Dyslipidemia Code(s): E78.5 - HYPERLIPIDEMIA, UNSPECIFIED Status: Chronic (7) Hypertension Code(s): I10 - ESSENTIAL (PRIMARY) HYPERTENSION Status: Chronic (8) Paroxysmal A-fib Code(s): I48.0 - PAROXYSMAL ATRIAL FIBRILLATION Status: Chronic (9) CAD (coronary artery disease) Code(s): I25.10 - ATHSCL HEART DISEASE OF [place] CORONARY ARTERY W/O ANG PCTRS Status: Chronic (10) Diabetes type 2, controlled Code(s): E11.9 - TYPE 2 DIABETES MELLITUS WITHOUT COMPLICATIONS Status: Chronic (10) Hypertensive urgency Status: Resolved - Plan - on mechanical ventilation, PCCM input appreciated - continue cefepime + vanc - covid test is negative - f/u cultures - 2d echo pending, cardiology input appreciated - Blood sugars controlled - continue elliquis and rate control -hilar mass workup as outpt
[2019-12-03] MEDS: Carvedilol 6.25 MG TAB PO SCH (20:04)
[2019-12-03] MEDS: Lisinopril 20 MG TAB PO SCH (20:05)
[2019-12-03] MEDS: Insulin Glargine 10 UNITS in Pre-Filled Syringe 1 EACH SC SCH ×2 (20:06→20:19)
--- NOTE | 2019-12-03 22:40 | CON ---
DATE OF CONSULTATION: 12/03/2019 REASON FOR CONSULTATION: Possible COVID versus an alternate diagnosis. HISTORY OF PRESENT ILLNESS: A 63-year-old patient who has a history of hypertension, coronary artery disease with prior myocardial infarction, type 2 diabetes, who was found unresponsive after complaining of confusional state and chest pain, he was severely hypoxemic and initial findings showed a BP of 240/130, pulse of 128, respirations 30, and a temperature of 99.6, O2 saturations were 78% on room air. So, he had to be intubated. On initial exam after intubation, the O2 sats had improved to 98%. He had erythematous posterior oropharynx. The dental decay was quite severe. Diminished breath sounds in right and left lungs. He was tachycardic. The abdomen was nontender, nondistended and he was awake, but initially seen not responsive though. LABORATORY DATA: Other findings on admission with a sodium 137, creatinine 0.81, AST 77, ALT 46, alkaline phosphatase 395, albumin 3.0. White cell count 6.9, hemoglobin 12.8, platelets 200 with 58% neutrophils. D-dimer 6.01. A pH of 7.14, pCO2 of 64, pO2 of 79, and the urinalysis with 0 to 3 wbc's. The first SARS-CoV-2 rapid test was not detected. Currently, the patient is intubated, he opens his eyes, looks around, does not follow commands. PAST MEDICAL HISTORY: Includes coronary artery disease, hypertension, type 2 diabetes. ALLERGIES: NO KNOWN DRUG ALLERGIES. MEDICATIONS: He is currently on Coreg, cefepime, Pepcid, fentanyl, hydralazine, insulin, lisinopril, lorazepam, propofol, vancomycin. FAMILY HISTORY: Not available. PHYSICAL EXAMINATION: VITAL SIGNS: T-max 101.9. The most recent one BP 103/67, pulse 86, heart rate 100 and he is on FiO2 of 50, O2 saturations are 97%. SKIN: No areas of skin breakdown. UROLOGIC: The patient has a right IJ central line Solorzano catheter. His output is about 1500 recently after diuresis, so his balance is negative for the past few hours of -700 mL. HEENT: Sclerae are messer colored and pupils are equal and constricted. Orotracheal intubation. LUNGS: Symmetric air entry with no obvious crackles. HEART: S1 and S2. Regular rate. ABDOMEN: Soft, not distended or tender. MUSCULOSKELETAL: No joint inflammatory activity. No edema. Pulses 1+ in dorsalis pedis. He is able to move extremities on command. LABORATORY AND DIAGNOSTIC DATA: His latest labs have been discussed above. His chest x-ray, will have CT dissection protocol with no evidence of aneurysm or dissection. Spiculated left upper lobe mass, bilateral lung parenchymal septal thickening, ground-glass opacities with consideration for an atypical pneumonia such as COVID. The patient had an echocardiogram done at the beginning of October, which showed EF of 50% to 55%, mild to moderate mitral regurgitation present. ASSESSMENT: Type 2 diabetes, coronary artery disease, altered mental state with severe hypoxemia, bilateral ground-glass infiltrates and CT of chest. DISCUSSION: Differential diagnosis includes COVID infection with severe hypoxemia, plus-minus additional factors such as ischemic cardiomyopathy with pulmonary edema with superimposed bacterial infection. The patient has had 1 negative test. His pretest likelihood for COVID infection was around 70% that brings it down to 25% with the first negative test. We will need to submit a second test to bring it down below the 15% range, and we will go ahead and reinstitute contact precautions and airborne precautions until the second test is resulted. Job ID: [id number]
[2019-12-04] MEDS ORDERED: Sodium Chloride 0.9% 15 ML NEB ONE (03:54)
[2019-12-04 04:26] LABS: #Lymphocytes 1.2 thou/uL (1.20-3.40); #Monocytes 0.8 thou/uL (0.11-0.59); #Neutrophils 7.5 thou/uL (1.40-6.50); %Basophils 0.2 % (0.0-1.0); %Eosinophils 0.4 % (0.0-10.0); %Lymphocytes 12.2 % (21.0-51.0); %Monocytes 8.8 % (0.0-10.0); %Neutrophils 78.3 % (42.0-75.0); Hemoglobin 12.2 g/dL (14.0-18.0); Mean Corpuscular HGB CONC 30.8 g/dL (32.0-36.0); Mean Corpuscular Hemoglobin 29.5 pg (27.0-31.0); Mean Corpuscular Volume 95.6 fL (78.0-98.0); Mean Platelet Volume 7.5 fL (7.4-10.4); Platelet Count 199 thou/uL (130-400); RBC Distribution Width 11.3 % (11.5-14.5); Red Blood Cell (RBC) Count 4.15 mill/uL (4.70-6.10); White Blood Cell (WBC) Count 9.5 thou/uL (4.8-10.8)
[2019-12-04 04:40] LABS: Anion Gap 12 mmol/L (10-20); BUN (Urea Nitrogen) 10 mg/dL (8.4-25.7); Calc. Creatinine Clearance 75 mL/min (70-130); Calcium 7.6 mg/dL (7.8-10.44); Carbon Dioxide 22 mmol/L (23-31); Chloride 105 mmol/L (98-107); Estimated GFR-MDRD Greater than 90; Glucose 72 mg/dL (80-115); Potassium 3.1 mmol/L (3.5-5.1); Sodium 136 mmol/L (136-145)
[2019-12-04 04:46] LABS: Vancomycin, Trough 15.8 ug/mL
[2019-12-04] MEDS: Cefepime 2 GM in Sodium Chloride 0.9% 100 ML IVPB SCH ×3 (05:08→21:13)
[2019-12-04] MEDS: Propofol 1,000 MG/100 ML VIAL IV PRN (05:08)
[2019-12-04 07:55] LABS: Actual Bicarbonate (HCO3a) 15.6 mEq/L (22-28); Base Excess (BEa) -9.1 mEq/L (-2.0 to +3.0); CO2 Tension 30.1 mmHg (35.0-45.0); Calcium, Ionized (arterial) 1.13 mmol/L (1.12-1.30); Carboxyhemoglobin (COHb) 0.7 gm% (0.0-3.0); Hemoglobin (Hb) 10.8 g/dL (14.0-18.0); O2 Tension (PaO2), arterial 142.7 mmHg (> 80.0); Potassium - ABG Lab 4.56 mmol/L (3.70-5.30); pH, Arterial 7.33 (7.35-7.45)
[2019-12-04 08:02] LABS: Puncture Site L.R.
[2019-12-04 08:03] LABS: ALV-art Gradient 176.175 (0-20)
--- NOTE | 2019-12-04 08:15 | RAD ---
CHEST 1 VIEW: INDICATION: History of intubation. COMPARISON: Prior exam dated 12/02/2019 and 12/03/2019. IMPRESSION: Bibasilar pneumonia is similar-appearing. Endotracheal tube and gastric catheter are unchanged. Rig ht internal jugular central venous catheter is unchanged. No pneumothorax is noted. POS: BH
[2019-12-04] MEDS: Vancomycin 1 GM in Premix Bag 1 BAG IVPB SCH (09:14)
[2019-12-04] MEDS: Carvedilol 6.25 MG TAB PO SCH ×2 (09:39→20:14)
[2019-12-04] MEDS: Famotidine/PF 20 mg/2ml Vial SLOW IVP SCH ×2 (09:40→20:15)
[2019-12-04] MEDS: Lisinopril 20 MG TAB PO SCH ×2 (09:43→20:16)
[2019-12-04] MEDS: hydrALAZINE 25 MG TAB PO SCH ×3 (11:18→20:15)
[2019-12-04] MEDS: Isosorbide Dinitrate 5 MG TAB PO SCH ×2 (11:19→20:23)
[2019-12-04] MEDS ORDERED: DC Sedation Protocol FS ONE (12:33)
--- NOTE | 2019-12-04 13:00 | PRG ---
DATE OF SERVICE: SUBJECTIVE: Rylie Medley is a 63-year-old gentleman, who is intubated yesterday. This morning, he is off all sedation, more responsive. OBJECTIVE: VITAL SIGNS: Pulse 66, blood pressure 143/80, sats 90%, respirations 18. His I's and O's have been negative. CHEST: Bilateral crackles. No wheezing. CARDIAC: Normal S1, S2. No gallops. ABDOMEN: No masses. LABORATORY DATA: White count H and H 12 and 36, platelet count normal. PO2 of 142, pCO2 of 30. BUN 33, his creatinine is normal. Lytes are normal. Bicarb is 22. Coagulase negative Staph which is probably contamination. Chest x-ray shows cardiomegaly, small pleural effusion. ASSESSMENT AND PLAN: Respiratory failure, congestive heart failure, pneumonia, encephalopathy. Wean and extubate. Continue PT, supportive care. Continue aggressive cardiac care, antibiotics. Probably discontinue vancomycin tomorrow. One-half hour of critical care time. Job ID: [id number]
[2019-12-04] MEDS: Insulin Regular 300 UNITS/3 ML VIAL SC PRN ×2 (17:09→23:07)
[2019-12-04] MEDS ORDERED: Electrolyte Replacement Protocol FS PRN (17:15)
[2019-12-04] MEDS ORDERED: Electrolyte Replacement Protoc 1 EACH EACH FS SCH (17:15)
--- NOTE | 2019-12-04 17:47 | PDOC.CPN ---
- Subjective Date: 12/04/19 Time: 17:45 Interval history: He was extubated earlier today. His breathing is better. - Review of Systems General: denies: fever/chills, weight/appetite/sleep changes, night sweats, fatigue Respiratory: reports: shortness of breath. denies: cough, congestion, exercise intolerance Cardiovascular: denies: chest pain, palpitation, edema, paroxysmal nocturnal dyspnea, orthopnea Gastrointestinal: denies: nausea, vomiting, diarrhea, constipation, abd pain, GI bleeding Musculoskeletal: denies: pain, tenderness, stiffness, swelling, arthritis/ arthralgias Neurological: denies: numbness, syncope, seizure, weakness - Objective Allergies/Adverse Reactions: Allergies Allergy/AdvReac Type Severity Reaction Status Date / Time No Known Allergies Allergy Verified 10/11/18 07:16 Visit Medications: Current Medications Acetaminophen (Tylenol) 650 mg PO Q4H PRN PRN Reason: Headache/Fever/Mild Pain (1-3) Last Admin: 12/03/19 20:04 Dose: 650 mg Acetaminophen (Tylenol) 650 mg NM Q4H PRN PRN Reason: Headache/Fever/Mild Pain (1-3) Albuterol/Ipratropium (Duoneb) 3 ml NEB [id number] [facility] Last Admin: 12/04/19 12:57 Dose: 3 ml Carvedilol (Coreg) 6.25 mg PO BID [facility] Last Admin: 12/04/19 09:39 Dose: 6.25 mg Dextrose/Water (Dextrose 50%) 25 gm SLOW IVP PRN PRN PRN Reason: Hypoglycemia Famotidine (Pepcid) 20 mg SLOW IVP Q12HR [facility] Last Admin: 12/04/19 09:40 Dose: 20 mg Glucagon (Glucagon) 1 mg IM PRN PRN PRN Reason: Hypoglycemia Hydralazine HCl (Apresoline) 10 mg SLOW IVP Q6H PRN PRN Reason: SBP GREATER THAN 160 Last Admin: 12/03/19 05:27 Dose: 10 mg Hydralazine HCl (Apresoline) 50 mg PO TID [facility] Last Admin: 12/04/19 14:32 Dose: 50 mg Cefepime HCl 2 gm/ Sodium (Chloride) 100 mls @ 200 mls/hr IVPB Q8HR [facility] Last Admin: 12/04/19 14:31 Dose: 100 mls Dextrose/Water (D5w) 1,000 mls @ 0 mls/hr IV .Q0M PRN PRN Reason: Hypoglycemia Insulin Glargine 10 units/ (Miscellaneous Medication) 0.1 mls @ 0 mls/hr SC HS [facility] Last Admin: 12/03/19 20:19 Dose: Not Given Vancomycin HCl 1.25 gm/ Sodium (Chloride) 250 mls @ 166.667 mls/hr IVPB 0800, 2000 [facility] Insulin Human Regular (Humulin R) 0 units SC .MODERATE SLIDING SC PRN PRN Reason: Moderate Correctional Scale Last Admin: 12/04/19 17:09 Dose: 2 unit Isosorbide Dinitrate (Isordil) 10 mg PO BID [facility] Last Admin: 12/04/19 11:19 Dose: 10 mg Lisinopril (Zestril) 20 mg PO BID [facility] Last Admin: 12/04/19 09:43 Dose: 20 mg Miscellaneous Medication (Pharmacy To Dose) 1 each IVPB PRN PRN PRN Reason: Pharmacy to dose Miscellaneous Medication (Electrolyte Replacement Protocol) 0 each FS ASDIR PRN ; Protocol PRN Reason: ELECTROLYTE REPLACEMENT Pneumococcal Polyvalent Vaccine (Pneumovax 23) 0.5 ml IM .ONCE ONE Stop: 12/04/19 21:01 Sodium Chloride (Flush - Normal Saline) 10 ml IVF Q12HR [facility] Last Admin: 12/04/19 09:44 Dose: 10 ml Sodium Chloride (Flush - Normal Saline) 10 ml IVF PRN PRN PRN Reason: Saline Flush Vital Signs & Weight: Vital Signs Temp Pulse Resp BP Pulse Ox 12/04/19 16:00 100.3 F H 12/04/19 14:32 74 164/92 H 12/04/19 12:57 74 18 100 12/04/19 12:35 100 12/04/19 12:00 98.7 F 16 12/04/19 11:18 66 143/88 H 12/04/19 11:00 80 105/69 12/04/19 10:00 15 12/04/19 09:43 129/77 12/04/19 09:39 129/77 12/04/19 08:00 98.8 F 13 99 12/04/19 07:28 77 115/74 07/29/20 07:27 73 17 100 12/04/19 06:00 13 Admit Weight 142 lb Weight 142 lb 13.753 oz - Physical Exam General: no apparent distress HEENT: mucus membranes moist Neck: supple neck Cardiac: regular rate and rhythm Lungs: bibasilar rales Neuro: grossly intact Abdomen: active bowel sounds Extremities: no edema Skin: clear Musculoskeletal: no pain - Labs Result Diagrams: 12/04/19 03:45 12/04/19 03:45 Troponin/CKMB Troponin I 0.158 ng/mL (< 0.028) H 12/03/19 00:50 - Telemetry Sinus rhythms and dysrhythmias: sinus rhythm - Assessment/Plan Assessment/Plan: 1. Acute on chronic diastolic CHF 2. Pneumonia 3. Respiratory insufficiency PLAN: - Will give one dose IV lasix. - Much improved. - IV abx per primary team.
[2019-12-04] MEDS ORDERED: Furosemide 40 MG/4 ML VIAL SLOW IVP SCH (18:00)
[2019-12-04] MEDS ORDERED: Potassium Chloride 20 MEQ TAB PO SCH (18:45)
[2019-12-04] MEDS: Acetaminophen 325 MG TAB PO PRN (18:49)
--- NOTE | 2019-12-04 19:37 | PDOC.HOSPP ---
- Subjective Encounter Date: 12/04/19 Encounter Time: 12:30 Subjective: Patient was seen for follow-up regarding sepsis. Patient is intubated and mechanically ventilated, ROS could not be completed. - Objective Vital Signs & Weight: Vital Signs (12 hours) Temp Pulse Resp BP Pulse Ox 12/04/19 18:39 94 24 H 100 12/04/19 16:00 100.3 F H 12/04/19 14:32 74 164/92 H 12/04/19 12:57 74 18 100 12/04/19 12:35 100 12/04/19 12:00 98.7 F 16 12/04/19 11:18 66 143/88 H 12/04/19 11:00 80 105/69 12/04/19 10:00 15 12/04/19 09:43 129/77 12/04/19 09:39 129/77 12/04/19 08:00 98.8 F 13 99 Weight Admit Weight 142 lb Weight 142 lb 13.753 oz Most Recent Monitor Data Heart Rate from ECG 90 NIBP 155/78 NIBP BP-Mean 103 Respiration from ECG 25 SpO2 99 I&O: 12/03/19 12/04/19 12/05/19 06:59 06:59 06:59 Intake Total 1747.6 1415 852 Output Total 610 2110 590 Balance 1137.6 -695 262 Result Diagrams: 12/04/19 03:45 12/04/19 03:45 Additional Labs: Accuchecks 12/04/19 12/04/19 12/04/19 17:06 10:07 04:05 POC Glucose 163 H 102 74 12/03/19 12/03/19 12/03/19 21:44 20:23 17:34 POC Glucose 96 79 76 Labs and MAR reviewed by me. Hospitalist ROS - Review of Systems ROS unobtainable: due to endotracheal tube - Medication Medications: Active Medications Generic Name Dose Route Start Last Admin Trade Name Freq PRN Reason Stop Dose Admin Acetaminophen 650 mg 12/02/19 19:50 12/04/19 18:49 Tylenol PO 650 mg Q4H PRN Administration Headache/Fever/Mild Pain (1-3) Albuterol/Ipratropium 3 ml 12/03/19 13:00 12/04/19 18:39 Duoneb NEB 3 ml [id number] [facility] Administration Famotidine 20 mg 12/02/19 21:00 12/04/19 09:40 Pepcid SLOW IVP 20 mg Q12HR [facility] Administration Furosemide 40 mg 12/04/19 18:00 12/04/19 18:49 Lasix SLOW IVP 12/04/19 20:00 40 mg NOW [facility] Administration Hydralazine HCl 10 mg 12/03/19 05:25 12/03/19 05:27 Apresoline SLOW IVP 10 mg Q6H PRN Administration SBP GREATER THAN 160 Hydralazine HCl 50 mg 12/03/19 09:00 12/04/19 14:32 Apresoline PO 50 mg TID [facility] Administration Cefepime HCl 2 gm/ Sodium 100 mls @ 200 mls/hr 12/02/19 22:00 12/04/19 14:31 Chloride IVPB 100 mls Q8HR [facility] Administration Insulin Glargine 10 units/ 0.1 mls @ 0 mls/hr 12/03/19 21:00 12/03/19 20:19 Miscellaneous Medication SC Not Given HS [facility] Insulin Human Regular 0 units 12/02/19 21:59 12/04/19 17:09 Humulin R SC 2 unit .MODERATE SLIDING SC PRN Administration Moderate Correctional Scale Isosorbide Dinitrate 10 mg 12/03/19 09:00 12/04/19 11:19 Isordil PO 10 mg BID [facility] Administration Lisinopril 20 mg 12/03/19 21:00 12/04/19 09:43 Zestril PO 20 mg BID [facility] Administration Potassium Chloride 40 meq 12/04/19 18:45 12/04/19 18:49 K-Dur PO 12/04/19 21:00 40 meq NOW [facility] Administration Sodium Chloride 10 ml 12/02/19 21:00 12/04/19 09:44 Flush - Normal Saline IVF 10 ml Q12HR [facility] Administration - Exam General - other findings: Intubated and mechanically ventilated ENT: normocephalic atraumatic Neck: no thyromegaly Heart: RRR Respiratory: rales Gastrointestinal: soft, non-distended Neurological - other findings: Unable to assess Psychiatric - other findings: Unable to assess Hosp A/P - Plan - Assessment (1) Sepsis Status: Due to pneumonia, Acute, present on admission (2) Pneumonia Code(s): J18.9 - PNEUMONIA, UNSPECIFIED ORGANISM Status: Acute (3) Respiratory failure requiring intubation Code(s): J96.90 - RESPIRATORY FAILURE, UNSP, UNSP W HYPOXIA OR HYPERCAPNIA Status: Acute (4)Acute on chronic diastolic CHF Status: Acute (4) Hilar mass Code(s): R91.8 - OTHER NONSPECIFIC ABNORMAL FINDING OF LUNG FIELD Status: Acute (5) Syncope Code(s): R55 - SYNCOPE AND COLLAPSE Status: Acute (6) Dyslipidemia Code(s): E78.5 - HYPERLIPIDEMIA, UNSPECIFIED Status: Chronic (7) Hypertension Code(s): I10 - ESSENTIAL (PRIMARY) HYPERTENSION Status: Chronic (8) Paroxysmal A-fib Code(s): I48.0 - PAROXYSMAL ATRIAL FIBRILLATION Status: Chronic (9) CAD (coronary artery disease) Code(s): I25.10 - ATHSCL HEART DISEASE OF [place] CORONARY ARTERY W/O ANG PCTRS Status: Chronic (10) Diabetes type 2, controlled Code(s): E11.9 - TYPE 2 DIABETES MELLITUS WITHOUT COMPLICATIONS Status: Chronic (10) Hypertensive urgency Status: Resolved - Plan - on mechanical ventilation - continue cefepime + vanc - covid test is negative x2 - f/u cultures - 2d echo pending, cardiology input appreciated - Blood sugars controlled - continue elliquis and rate control -hilar mass workup as outpt -PRN furosemide
[2019-12-04] MEDS: Vancomycin HCl 1.25 GM in Sodium Chloride 0.9% 250 ML 250 ML IVPB SCH (20:12)
[2019-12-04] MEDS: Insulin Glargine 10 UNITS in Pre-Filled Syringe 1 EACH SC SCH (20:17)
[2019-12-05] MEDS: Insulin Regular 300 UNITS/3 ML VIAL SC PRN ×3 (03:40→18:34)
[2019-12-05 03:49] LABS: #Lymphocytes 1.1 thou/uL (1.20-3.40); #Monocytes 0.7 thou/uL (0.11-0.59); #Neutrophils 6.8 thou/uL (1.40-6.50); %Basophils 0.1 % (0.0-1.0); %Eosinophils 0.3 % (0.0-10.0); %Lymphocytes 12.7 % (21.0-51.0); %Monocytes 8.3 % (0.0-10.0); %Neutrophils 78.5 % (42.0-75.0); Hemoglobin 11.9 g/dL (14.0-18.0); Mean Corpuscular HGB CONC 31.8 g/dL (32.0-36.0); Mean Corpuscular Hemoglobin 29.9 pg (27.0-31.0); Mean Corpuscular Volume 94.1 fL (78.0-98.0); Mean Platelet Volume 7.2 fL (7.4-10.4); Platelet Count 207 thou/uL (130-400); RBC Distribution Width 11.2 % (11.5-14.5); Red Blood Cell (RBC) Count 3.97 mill/uL (4.70-6.10); White Blood Cell (WBC) Count 8.7 thou/uL (4.8-10.8)
[2019-12-05 04:05] LABS: Anion Gap 9 mmol/L (10-20); BUN (Urea Nitrogen) 10 mg/dL (8.4-25.7); Calc. Creatinine Clearance 87 mL/min (70-130); Calcium 7.9 mg/dL (7.8-10.44); Carbon Dioxide 27 mmol/L (23-31); Chloride 105 mmol/L (98-107); Estimated GFR-MDRD Greater than 90; Glucose 155 mg/dL (80-115); Potassium 3.5 mmol/L (3.5-5.1); Sodium 137 mmol/L (136-145)
[2019-12-05] MEDS: Cefepime 2 GM in Sodium Chloride 0.9% 100 ML IVPB SCH (05:14)
[2019-12-05] MEDS ORDERED: Potassium Chloride 20 MEQ TAB PO SCH (05:30)
--- NOTE | 2019-12-05 07:54 | RAD ---
EXAM: Single view of the chest HISTORY: Altered mental status COMPARISON: 12/04/2019 FINDINGS: Single view of the chest shows a normal sized cardiomediastinal silhouette. The central ve nous catheter is unchanged in position. There are stable left hilar spiculated mass. The bones are unremarkable IMPRESSION: Stable exam
[2019-12-05] MEDS: Vancomycin HCl 1.25 GM in Sodium Chloride 0.9% 250 ML 250 ML IVPB SCH (08:48)
--- NOTE | 2019-12-05 08:52 | PRG ---
DATE OF SERVICE: 12/05/2019 SUBJECTIVE: This morning, he is awake, alert, and responsive. Denies any pain, discomfort, or shortness of breath. His x-ray shows much improvement in his infiltrates. We are going to discontinue all his antibiotics, switch him on p.o. medication. His problem is mainly cardiac. We are going to try and get him out of the ICU. OBJECTIVE: VITAL SIGNS: Saturations are 100% on 2 L, pulse 86, respiratory rate 22, blood pressure . CHEST: No wheezing, rhonchi, or crackles. CARDIAC: Normal S1, S2. No gallops. ABDOMEN: No masses. IMPRESSION: Congestive heart failure, cardiomyopathy, encephalopathy, respiratory failure, possibly pneumonia. Switch him to oral medication, transfer out of the ICU. Job ID: [id number]
[2019-12-05] MEDS: hydrALAZINE 25 MG TAB PO SCH ×3 (09:14→22:40)
[2019-12-05] MEDS: Cefdinir 300 MG CAP PO SCH ×2 (09:14→22:39)
[2019-12-05] MEDS: Carvedilol 6.25 MG TAB PO SCH ×2 (09:14→22:40)
[2019-12-05] MEDS: Isosorbide Dinitrate 5 MG TAB PO SCH ×2 (09:15→22:39)
[2019-12-05] MEDS: Famotidine/PF 20 mg/2ml Vial SLOW IVP SCH (09:15)
[2019-12-05] MEDS: Lisinopril 20 MG TAB PO SCH ×2 (09:15→22:39)
--- NOTE | 2019-12-05 12:52 | PRG ---
DATE OF SERVICE: 12/05/2019 SUBJECTIVE: Rylie Medley is in no distress. He answers questions quickly. His hemodynamics have been stable. OBJECTIVE: LUNGS: Clear. HEART: Regular rhythm. ABDOMEN: Soft. EXTREMITIES: Without edema. LABORATORY DATA: Labs have been reviewed. IMPRESSION: Status post respiratory arrest, clinically stable. Move out of Critical Care Unit. Job ID: [id number]
--- NOTE | 2019-12-05 15:08 | PDOC.HOSPP ---
- Subjective Encounter Date: 12/05/19 Encounter Time: 07:00 Subjective: Patient was seen for follow-up for acute respiratory failure. Patient is awake , alert, not in acute distress. - Objective Vital Signs & Weight: Vital Signs (12 hours) Temp Pulse Resp BP Pulse Ox 12/05/19 14:05 66 19 100 12/05/19 12:00 98.5 F 12/05/19 09:15 165/92 H 12/05/19 09:14 71 165/92 H 12/05/19 08:00 98.6 F 100 12/05/19 07:13 86 22 H 100 12/05/19 04:00 98.2 F Weight Admit Weight 142 lb Weight 139 lb 1.787 oz Most Recent Monitor Data Heart Rate from ECG 68 NIBP 116/68 NIBP BP-Mean 84 Respiration from ECG 20 SpO2 100 I&O: 12/04/19 12/05/19 12/06/19 06:59 06:59 06:59 Intake Total 1415 2282 600 Output Total 2110 2825 245 Balance -695 -543 355 Result Diagrams: 12/05/19 03:30 12/05/19 03:30 Additional Labs: Accuchecks 12/05/19 12/05/19 12/04/19 11:13 03:41 23:11 POC Glucose 239 H 157 H 340 H 12/04/19 17:06 POC Glucose 163 H Labs and MAR reviewed by me. EKG Reviewed by me: Yes (Telemetry: NSR) Hospitalist ROS - Review of Systems Cardiovascular: denies: chest pain, palpitations, orthopnea, paroxysmal noc. dyspnea, edema, light headedness Gastrointestinal: denies: nausea, vomiting, abdominal pain, diarrhea, constipation, melena, hematochezia - Medication Medications: Active Medications Generic Name Dose Route Start Last Admin Trade Name Freq PRN Reason Stop Dose Admin Acetaminophen 650 mg 12/02/19 19:50 12/04/19 18:49 Tylenol PO 650 mg Q4H PRN Administration Headache/Fever/Mild Pain (1-3) Albuterol/Ipratropium 3 ml 12/03/19 13:00 12/05/19 14:05 Duoneb NEB 3 ml [id number] [facility] Administration Carvedilol 12.5 mg 12/04/19 21:00 12/05/19 09:14 Coreg PO 12.5 mg BID [facility] Administration Cefdinir 300 mg 12/05/19 09:00 12/05/19 09:14 Omnicef PO 300 mg BID [facility] Administration Hydralazine HCl 10 mg 12/03/19 05:25 12/03/19 05:27 Apresoline SLOW IVP 10 mg Q6H PRN Administration SBP GREATER THAN 160 Hydralazine HCl 50 mg 12/03/19 09:00 12/05/19 09:14 Apresoline PO 50 mg TID [facility] Administration Insulin Glargine 10 units/ 0.1 mls @ 0 mls/hr 12/03/19 21:00 12/04/19 20:17 Miscellaneous Medication SC 0.1 mls HS [facility] Administration Insulin Human Regular 0 units 12/02/19 21:59 12/05/19 11:09 Humulin R SC 6 unit .MODERATE SLIDING SC PRN Administration Moderate Correctional Scale Isosorbide Dinitrate 10 mg 12/03/19 09:00 12/05/19 09:15 Isordil PO 10 mg BID [facility] Administration Lisinopril 20 mg 12/03/19 21:00 12/05/19 09:15 Zestril PO 20 mg BID [facility] Administration Sodium Chloride 10 ml 12/02/19 21:00 12/05/19 09:15 Flush - Normal Saline IVF 10 ml Q12HR [facility] Administration - Exam General Appearance: awake alert Eye: anicteric sclera ENT: moist mucosa Neck: supple, symmetric Heart: RRR, no rubs Respiratory: CTAB, no rales Gastrointestinal: soft, non-tender Extremities: no cyanosis Skin: no rashes Psychiatric: normal affect, normal behavior, oriented to person, oriented to place Hosp A/P - Plan - Assessment (1)Acute on chronic diastolic CHF NYHA Class 3 Status: Acute (2) Pneumonia Code(s): J18.9 - PNEUMONIA, UNSPECIFIED ORGANISM Status: Acute (3) Hilar mass Code(s): R91.8 - OTHER NONSPECIFIC ABNORMAL FINDING OF LUNG FIELD Status: Acute (4) Dyslipidemia Code(s): E78.5 - HYPERLIPIDEMIA, UNSPECIFIED Status: Chronic (5) Hypertension Code(s): I10 - ESSENTIAL (PRIMARY) HYPERTENSION Status: Chronic (6) Paroxysmal A-fib Code(s): I48.0 - PAROXYSMAL ATRIAL FIBRILLATION Status: Chronic (7) CAD (coronary artery disease) Code(s): I25.10 - ATHSCL HEART DISEASE OF [place] CORONARY ARTERY W/O ANG PCTRS Status: Chronic (8) Diabetes type 2, controlled Code(s): E11.9 - TYPE 2 DIABETES MELLITUS WITHOUT COMPLICATIONS Status: Chronic (9) Hypertensive urgency Status: Resolved (10) Respiratory failure requiring intubation Code(s): J96.90 - RESPIRATORY FAILURE, UNSP, UNSP W HYPOXIA OR HYPERCAPNIA Status: Acute (11) Sepsis Status: Due to pneumonia, Acute, present on admission (12) Syncope Code(s): R55 - SYNCOPE AND COLLAPSE Status: Acute - Plan - continue diuretics as needed - switch to oral abx - covid test is negative x2 - 2d echo pending, cardiology input appreciated - Blood sugars controlled - continue eliquis and rate control meds -hilar mass workup as outpt -s/p extubation -xfer to medical floor
--- NOTE | 2019-12-05 17:55 | PDOC.CPN ---
- Subjective Date: 12/05/19 Time: 17:53 Interval history: No new issues. Back to baseline. - Review of Systems General: denies: fever/chills, weight/appetite/sleep changes, night sweats, fatigue Respiratory: denies: cough, congestion, shortness of breath, exercise intolerance Cardiovascular: denies: chest pain, palpitation, edema, paroxysmal nocturnal dyspnea, orthopnea Gastrointestinal: denies: nausea, vomiting, diarrhea, constipation, abd pain, GI bleeding Musculoskeletal: denies: pain, tenderness, stiffness, swelling, arthritis/ arthralgias Neurological: denies: numbness, syncope, seizure, weakness - Objective Allergies/Adverse Reactions: Allergies Allergy/AdvReac Type Severity Reaction Status Date / Time No Known Allergies Allergy Verified 10/11/18 07:16 Visit Medications: Current Medications Acetaminophen (Tylenol) 650 mg PO Q4H PRN PRN Reason: Headache/Fever/Mild Pain (1-3) Last Admin: 12/04/19 18:49 Dose: 650 mg Acetaminophen (Tylenol) 650 mg NE Q4H PRN PRN Reason: Headache/Fever/Mild Pain (1-3) Albuterol/Ipratropium (Duoneb) 3 ml NEB [id number] [facility] Last Admin: 12/05/19 14:05 Dose: 3 ml Apixaban (Eliquis) 5 mg PO BID [facility] Atorvastatin Calcium (Lipitor) 80 mg PO HS [facility] Carvedilol (Coreg) 12.5 mg PO BID [facility] Last Admin: 12/05/19 09:14 Dose: 12.5 mg Cefdinir (Omnicef) 300 mg PO BID [facility] Last Admin: 12/05/19 09:14 Dose: 300 mg Dextrose/Water (Dextrose 50%) 25 gm SLOW IVP PRN PRN PRN Reason: Hypoglycemia Famotidine (Pepcid) 20 mg PO Q12HR [facility] Glucagon (Glucagon) 1 mg IM PRN PRN PRN Reason: Hypoglycemia Hydralazine HCl (Apresoline) 10 mg SLOW IVP Q6H PRN PRN Reason: SBP GREATER THAN 160 Last Admin: 12/03/19 05:27 Dose: 10 mg Hydralazine HCl (Apresoline) 50 mg PO TID [facility] Last Admin: 12/05/19 16:23 Dose: 50 mg Dextrose/Water (D5w) 1,000 mls @ 0 mls/hr IV .Q0M PRN PRN Reason: Hypoglycemia Insulin Glargine 10 units/ (Miscellaneous Medication) 0.1 mls @ 0 mls/hr SC HS [facility] Last Admin: 12/04/19 20:17 Dose: 0.1 mls Insulin Human Regular (Humulin R) 0 units SC .MODERATE SLIDING SC PRN PRN Reason: Moderate Correctional Scale Last Admin: 12/05/19 11:09 Dose: 6 unit Isosorbide Dinitrate (Isordil) 10 mg PO BID [facility] Last Admin: 12/05/19 09:15 Dose: 10 mg Lisinopril (Zestril) 20 mg PO BID [facility] Last Admin: 12/05/19 09:15 Dose: 20 mg Miscellaneous Medication (Electrolyte Replacement Protocol) 0 each FS ASDIR PRN ; Protocol PRN Reason: ELECTROLYTE REPLACEMENT Sodium Chloride (Flush - Normal Saline) 10 ml IVF Q12HR [facility] Last Admin: 12/05/19 09:15 Dose: 10 ml Sodium Chloride (Flush - Normal Saline) 10 ml IVF PRN PRN PRN Reason: Saline Flush Vital Signs & Weight: Vital Signs Temp Pulse Resp BP BP Pulse Ox 12/05/19 16:20 97.8 F 78 18 135/97 H 95 12/05/19 14:05 66 19 100 12/05/19 12:00 98.5 F 12/05/19 09:15 165/92 H 12/05/19 09:14 71 165/92 H 12/05/19 08:00 98.6 F 100 12/05/19 07:13 86 22 H 100 Admit Weight 142 lb Weight 139 lb 1.787 oz - Physical Exam General: alert & oriented x3 HEENT: mucus membranes moist Neck: supple neck Cardiac: regular rate and rhythm Lungs: clear to auscultation Neuro: grossly intact Abdomen: active bowel sounds Extremities: no edema Skin: clear Musculoskeletal: no pain - Labs Result Diagrams: 12/05/19 03:30 12/05/19 03:30 Troponin/CKMB Troponin I 0.158 ng/mL (< 0.028) H 12/03/19 00:50 - Telemetry Sinus rhythms and dysrhythmias: sinus rhythm - Assessment/Plan Assessment/Plan: 1. Acute on chronic diastolic CHF 2. Pneumonia 3. Respiratory insufficiency PLAN: - Back to [facility]. seems euvolemic. - IV abx per primary team. - Will sign off. Please call with any questions.
[2019-12-05] MEDS ORDERED: Enoxaparin Sodium 40 MG/0.4 ML SYRINGE SC SCH (21:00)
[2019-12-05] MEDS: Famotidine 20 MG TAB PO SCH (22:39)
[2019-12-05] MEDS: Insulin Glargine 10 UNITS in Pre-Filled Syringe 1 EACH SC SCH (22:39)
[2019-12-05] MEDS: Apixaban 5 MG TAB PO SCH (22:40)
[2019-12-05] MEDS: Atorvastatin Calcium 40 MG TAB PO SCH (22:40)
[2019-12-06 05:22] LABS: Anion Gap 9 mmol/L (10-20); BUN (Urea Nitrogen) 7 mg/dL (8.4-25.7); Calc. Creatinine Clearance 88 mL/min (70-130); Calcium 8.1 mg/dL (7.8-10.44); Carbon Dioxide 29 mmol/L (23-31); Chloride 104 mmol/L (98-107); Estimated GFR-MDRD Greater than 90; Glucose 117 mg/dL (80-115); Potassium 3.8 mmol/L (3.5-5.1); Sodium 138 mmol/L (136-145)
[2019-12-06 05:28] LABS: #Lymphocytes 1.3 thou/uL (1.20-3.40); #Monocytes 0.5 thou/uL (0.11-0.59); #Neutrophils 4.7 thou/uL (1.40-6.50); %Basophils 0.2 % (0.0-1.0); %Eosinophils 0.7 % (0.0-10.0); %Lymphocytes 20.2 % (21.0-51.0); %Monocytes 7.3 % (0.0-10.0); %Neutrophils 71.6 % (42.0-75.0); Hemoglobin 12.4 g/dL (14.0-18.0); Mean Corpuscular HGB CONC 31.4 g/dL (32.0-36.0); Mean Corpuscular Hemoglobin 30.5 pg (27.0-31.0); Mean Platelet Volume 7.3 fL (7.4-10.4); Platelet Count 239 thou/uL (130-400); RBC Distribution Width 11.3 % (11.5-14.5); Red Blood Cell (RBC) Count 4.06 mill/uL (4.70-6.10); White Blood Cell (WBC) Count 6.5 thou/uL (4.8-10.8)
[2019-12-06] MEDS: Insulin Regular 300 UNITS/3 ML VIAL SC PRN ×2 (06:43→17:06)
--- NOTE | 2019-12-06 07:57 | RAD ---
EXAM: Portable chest PROVIDED CLINICAL HISTORY: Respiratory insufficiency COMPARISON: 12/05/2019 FINDINGS: Significant interval change with respect to the prior examination is not apparent. IMPRESSION: As above.
[2019-12-06] MEDS: Carvedilol 6.25 MG TAB PO SCH ×2 (10:03→22:12)
[2019-12-06] MEDS: Apixaban 5 MG TAB PO SCH ×2 (10:03→22:12)
[2019-12-06] MEDS: Isosorbide Dinitrate 5 MG TAB PO SCH ×2 (10:04→22:12)
[2019-12-06] MEDS: Cefdinir 300 MG CAP PO SCH ×2 (10:04→22:12)
[2019-12-06] MEDS: Lisinopril 20 MG TAB PO SCH ×2 (10:04→22:12)
[2019-12-06] MEDS: Famotidine 20 MG TAB PO SCH ×2 (10:04→22:11)
[2019-12-06] MEDS: hydrALAZINE 25 MG TAB PO SCH ×3 (10:04→22:12)
[2019-12-06 13:06] VITALS: BMI 19.7
--- NOTE | 2019-12-06 15:21 | PRG ---
DATE OF SERVICE: 12/06/2019 SUBJECTIVE: Rylie Medley is clinically unchanged. OBJECTIVE: GENERAL: He is in no distress. VITAL SIGNS: He is afebrile, heart rate is in the 60s, , respiratory rate is 14, . LUNGS: Unchanged. HEART: Unchanged. ABDOMEN: Unchanged. IMPRESSION: 1. Status post mechanical ventilation. 2. Acute on chronic diastolic heart failure. 3. Diabetes. 4. Possible pneumonia. He appears to be progressing fairly well. Medical compliance I suspect may be an issue after discharge. In any event, we will sign off. Job ID: [id number]
--- NOTE | 2019-12-06 18:13 | PDOC.HOSPP ---
- Subjective Encounter Date: 12/06/19 Encounter Time: 07:00 Subjective: Patient was seen for follow-up for exacerbation of congestive heart failure. He reports feeling better. He is still using supplemental oxygen. - Objective Vital Signs & Weight: Vital Signs (12 hours) Temp Pulse Resp BP BP BP Pulse Ox 12/06/19 15:27 98.6 F 66 19 144/85 H 98 12/06/19 14:12 60 14 12/06/19 13:59 67 126/75 12/06/19 11:23 99.2 F 76 16 154/85 H 99 12/06/19 07:28 98.0 F 67 16 163/89 H 97 Weight Admit Weight 142 lb 13.753 oz Weight 145 lb 8 oz Most Recent Monitor Data Heart Rate from ECG 68 NIBP 116/68 NIBP BP-Mean 84 Respiration from ECG 20 SpO2 100 I&O: 12/05/19 12/06/19 12/07/19 06:59 06:59 06:59 Intake Total 2282 1200 700 Output Total 2825 1795 300 Balance -543 -595 400 Result Diagrams: 12/06/19 04:42 12/06/19 04:42 Additional Labs: Accuchecks 12/06/19 12/06/19 12/06/19 16:38 10:53 06:04 POC Glucose 225 H 156 H 247 H 12/05/19 12/05/19 21:02 18:30 POC Glucose 233 H 224 H MAR and labs reviewed by me. EKG Reviewed by me: Yes (Telemetry: Normal sinus rhythm) Hospitalist ROS - Review of Systems Respiratory: reports: cough, dry, SOB with excertion. denies: shortness of breath, hemoptysis, pleuritic pain, sputum, wheezing Cardiovascular: denies: chest pain, palpitations, orthopnea, paroxysmal noc. dyspnea, edema, light headedness - Medication Medications: Active Medications Generic Name Dose Route Start Last Admin Trade Name Freq PRN Reason Stop Dose Admin Acetaminophen 650 mg 12/02/19 19:50 12/04/19 18:49 Tylenol PO 650 mg Q4H PRN Administration Headache/Fever/Mild Pain (1-3) Albuterol/Ipratropium 3 ml 12/03/19 13:00 12/06/19 14:12 Duoneb NEB 3 ml [id number] DAGO Administration Apixaban 5 mg 12/05/19 21:00 12/06/19 10:03 Eliquis PO 5 mg BID DAGO Administration Atorvastatin Calcium 80 mg 12/05/19 21:00 12/05/19 22:40 Lipitor PO 80 mg HS DAGO Administration Carvedilol 12.5 mg 12/04/19 21:00 12/06/19 10:03 Coreg PO 12.5 mg BID DAGO Administration Cefdinir 300 mg 12/05/19 09:00 12/06/19 10:04 Omnicef PO 300 mg BID DAGO Administration Famotidine 20 mg 12/05/19 21:00 12/06/19 10:04 Pepcid PO 20 mg Q12HR DAGO Administration Hydralazine HCl 10 mg 12/03/19 05:25 12/03/19 05:27 Apresoline SLOW IVP 10 mg Q6H PRN Administration SBP GREATER THAN 160 Hydralazine HCl 50 mg 12/03/19 09:00 12/06/19 13:59 Apresoline PO 50 mg TID DAGO Administration Insulin Glargine 10 units/ 0.1 mls @ 0 mls/hr 12/03/19 21:00 12/05/19 22:39 Miscellaneous Medication SC 0.1 mls HS DAGO Administration Insulin Human Regular 0 units 12/02/19 21:59 12/06/19 17:06 Humulin R SC 4 unit .MODERATE SLIDING SC PRN Administration Moderate Correctional Scale Isosorbide Dinitrate 10 mg 12/03/19 09:00 12/06/19 10:04 Isordil PO 10 mg BID DAGO Administration Lisinopril 20 mg 12/03/19 21:00 12/06/19 10:04 Zestril PO 20 mg BID DAGO Administration Sodium Chloride 10 ml 12/02/19 21:00 12/06/19 10:05 Flush - Normal Saline IVF 10 ml Q12HR DAGO Administration - Exam General Appearance: awake alert Eye: anicteric sclera ENT: no oropharyngeal lesions Neck: supple Heart: RRR Respiratory: normal chest expansion, rales Gastrointestinal: soft, non-tender Skin: no rashes Musculoskeletal: no muscle wasting Psychiatric: normal affect, normal behavior Hosp A/P - Plan - Assessment (1)Acute on chronic diastolic CHF NYHA Class 3 Status: Acute (2) Pneumonia Code(s): J18.9 - PNEUMONIA, UNSPECIFIED ORGANISM Status: Acute (3) Hilar mass Code(s): R91.8 - OTHER NONSPECIFIC ABNORMAL FINDING OF LUNG FIELD Status: Acute (4) Dyslipidemia Code(s): E78.5 - HYPERLIPIDEMIA, UNSPECIFIED Status: Chronic (5) Hypertension Code(s): I10 - ESSENTIAL (PRIMARY) HYPERTENSION Status: Chronic (6) Paroxysmal A-fib Code(s): I48.0 - PAROXYSMAL ATRIAL FIBRILLATION Status: Chronic (7) CAD (coronary artery disease) Code(s): I25.10 - ATHSCL HEART DISEASE OF [place] CORONARY ARTERY W/O ANG PCTRS Status: Chronic (8) Diabetes type 2, controlled Code(s): E11.9 - TYPE 2 DIABETES MELLITUS WITHOUT COMPLICATIONS Status: Chronic (9) Hypertensive urgency Status: Resolved (10) Respiratory failure requiring intubation Code(s): J96.90 - RESPIRATORY FAILURE, UNSP, UNSP W HYPOXIA OR HYPERCAPNIA Status: Acute (11) Sepsis Status: Due to pneumonia, Acute, present on admission (12) Syncope Code(s): R55 - SYNCOPE AND COLLAPSE Status: Acute - Plan - continue furosemide -Continue cefdinir - covid test is negative x2 -Echocardiogram report is pending - Blood sugars controlled - continue eliquis and rate control meds -Patient should have hilar mass workup as outpt -s/p extubation -Ambulate patient -Wean off supplemental oxygen
[2019-12-06] MEDS ORDERED: Furosemide 20 MG TAB PO SCH (18:15)
[2019-12-06] MEDS: Atorvastatin Calcium 40 MG TAB PO SCH (22:11)
[2019-12-06] MEDS: Insulin Glargine 10 UNITS in Pre-Filled Syringe 1 EACH SC SCH (22:55)
[2019-12-07 04:26] LABS: #Lymphocytes 1.2 thou/uL (1.20-3.40); #Monocytes 0.4 thou/uL (0.11-0.59); #Neutrophils 5.1 thou/uL (1.40-6.50); %Basophils 0.2 % (0.0-1.0); %Eosinophils 0.6 % (0.0-10.0); %Lymphocytes 17.9 % (21.0-51.0); %Monocytes 5.9 % (0.0-10.0); %Neutrophils 75.5 % (42.0-75.0); Hemoglobin 11.3 g/dL (14.0-18.0); Mean Corpuscular HGB CONC 31.1 g/dL (32.0-36.0); Mean Corpuscular Hemoglobin 29.6 pg (27.0-31.0); Mean Corpuscular Volume 95.5 fL (78.0-98.0); Mean Platelet Volume 7.6 fL (7.4-10.4); Platelet Count 261 thou/uL (130-400); RBC Distribution Width 11.3 % (11.5-14.5); White Blood Cell (WBC) Count 6.8 thou/uL (4.8-10.8)
[2019-12-07 04:47] LABS: Anion Gap 10 mmol/L (10-20); BUN (Urea Nitrogen) 11 mg/dL (8.4-25.7); Calc. Creatinine Clearance 82 mL/min (70-130); Calcium 8.2 mg/dL (7.8-10.44); Carbon Dioxide 30 mmol/L (23-31); Chloride 100 mmol/L (98-107); Estimated GFR-MDRD Greater than 90; Glucose 313 mg/dL (80-115); Potassium 3.5 mmol/L (3.5-5.1); Sodium 136 mmol/L (136-145)
[2019-12-07] MEDS: Insulin Regular 300 UNITS/3 ML VIAL SC PRN (06:02)
[2019-12-07] MEDS ORDERED: Furosemide 40 MG TAB PO SCH (07:30)
[2019-12-07] MEDS: Apixaban 5 MG TAB PO SCH (08:21)
[2019-12-07] MEDS: Cefdinir 300 MG CAP PO SCH (08:21)
[2019-12-07] MEDS: Carvedilol 6.25 MG TAB PO SCH (08:21)
[2019-12-07] MEDS: Famotidine 20 MG TAB PO SCH (08:21)
[2019-12-07] MEDS: Isosorbide Dinitrate 5 MG TAB PO SCH (08:22)
[2019-12-07] MEDS: hydrALAZINE 25 MG TAB PO SCH (08:22)
[2019-12-07] MEDS: Lisinopril 20 MG TAB PO SCH (08:22)
[2019-12-07] MEDS ORDERED: Potassium Chloride 20 MEQ TAB PO SCH (10:00)
--- NOTE | 2019-12-07 11:25 | DIS ---
DATE OF ADMISSION: 12/02/2019 DATE OF DISCHARGE: 12/07/2019 PRIMARY CARE PROVIDER: Jaswinder Solitario MD. DISCHARGE DIAGNOSES: 1. Acute respiratory failure with hypoxia and hypercapnia. 2. Respiratory failure requiring intubation and mechanical ventilation. 3. Pneumonia. 4. [id number] diastolic congestive heart failure, [place] Heart Association class III. 5. COVID-19 test negative. 6. Sepsis. 7. Sepsis secondary to pneumonia. 8. Left upper lobe lung mass, pt will need workup as outpatient. CONDITION OF PATIENT ON THE DAY OF DISCHARGE: Stable. I assessed Mr. Galindo Mackay on the day of discharge. He denies any chest pain or shortness of breath. Vital signs are stable. S1 and S2 are heard, regular. Lungs are clear to auscultation bilaterally. CONSULTATIONS DURING THIS HOSPITALIZATION: 1. Pulmonary and Critical Care Medicine, Dr. Staley. 2. Cardiology, Dr. Horvath. DISCHARGE MEDICATIONS: Patient has been started on cefdinir 300 mg 2 times daily, 5 more days. Otherwise, no change was made to his pre-admission home medications, which include; 1. Nitroglycerin p.r.n. 2. Amiodarone 200 mg daily. 3. Eliquis 5 mg two times daily. 4. Aspirin 81 mg daily. 5. Lipitor 80 mg at bedtime. 6. Coreg 6.25 mg 2 times daily. 7. Humulin 70/30 insulin 15 units 2 times daily. 8. Hydralazine 50 mg 3 times daily. 9. Isosorbide dinitrate 10 mg 2 times daily. 10. Lisinopril 20 mg 2 times daily. 11. Spironolactone 25 mg daily. HOSPITAL COURSE: Mr. Galindo Mackay is a pleasant 63-year-old gentleman who was admitted to [facility] for respiratory failure requiring intubation on December 02, 2019. He was found to have pneumonia as well as diastolic heart failure exacerbation. He was seen by Pulmonary and Critical Care Medicine and Cardiology services. He improved with diuretics and antibiotics. He was extubated and transferred to the telemetry floor from the Critical Care Unit. He continued to improve clinically and is being discharged home in a stable condition. Patient also has a lung mass in his left upper lobe and will need workup as outpatient. Patient, his daughter (over telephone) and PCP were notified of the same. LABORATORY DATA: On the day of discharge, he has white count 6800, hemoglobin 11.3, platelet count 261,000. Sodium 137, potassium 3.5 and creatinine 0.80. Post acute care followup: With primary care provider in 3 days. DIET: Heart healthy, diabetic and low-sodium. ACTIVITY: No restrictions. DISCHARGE DESTINATION: Home. TIME SPENT: Total amount of time spent coordinating this discharge: 32 minutes. Job ID: [id number] MTDD
[2019-12-07 11:26] VITALS: TEMP 98.5
[2019-12-07 13:24] VITALS: BP 119/68
== END 2019-12-07 13:35 | disposition home or self-care (01) | DRG 871 ==
LOC: ERS 17:24 → CCU 17:49 → 2NO 12-05 14:44
PROVIDERS: ADMIT Internal Medicine; ATTEND Internal Medicine
DX: A41.9 Sepsis, unspecified organism (principal); J18.9 Pneumonia, unspecified organism; J96.01 Acute respiratory failure with hypoxia; J96.02 Acute respiratory failure with hypercapnia; I50.33 Acute on chronic diastolic (congestive) heart failure; I16.1 Hypertensive emergency; G93.40 Encephalopathy, unspecified; I42.9 Cardiomyopathy, unspecified; Z20.828 Contact with and (suspected) exposure to other viral communicable diseases; I16.0 Hypertensive urgency; J98.4 Other disorders of lung; E78.5 Hyperlipidemia, unspecified; I11.0 Hypertensive heart disease with heart failure; E11.9 Type 2 diabetes mellitus without complications; I48.0 Paroxysmal atrial fibrillation; Z86.73 Personal history of transient ischemic attack (TIA), and cerebral infarction without residual deficits; Z79.01 Long term (current) use of anticoagulants; Z79.4 Long term (current) use of insulin
CPT/HCPCS: 36415; 36416; 36556; 51702; 70450; 71045; 71275; 72191; 74175; 80048; 80053; 80202; 81003; 81015; 82805; 83605; 83615; 83880; 84145; 84443; 84484; 85007; 85025; 85027; 85379; 86140; 87040; 87086; 87149; 90471; 90732; 93005; 93306; 94002; 94003; 94640; 96361; 96365; 96366; 96367; 96375; 96376; 99292; A4218; G0009; J0360; J0692; J1815; J1940; J2704; J3010; J3370; J3490; J7030; J7050; J7620; Q9967; S0028; U0002

== ENCOUNTER 2020-01-07 09:05 | Day surgery (SDC) | payer MEDICARE ==
[2020-01-06 16:36] VITALS: BMI 20.2
[2020-01-07 09:48] LABS: PTT 37.5 sec (22.9-36.1); Prothrombin Time 13.4 sec (12.0-14.7)
[2020-01-07 11:55] VITALS: BP 176/100; TEMP 97.1
--- NOTE | 2020-01-07 13:15 | RAD ---
INSPIRATORY AND EXPIRATORY AP VIEWS OF CHEST: Date: 01/07/2020 INDICATION: Status post left lung biopsy. COMPARISON: CT lung biopsy dated 01/07/2020. FINDINGS: Submitted images demonstrate no definite left-sided pneumothorax. Large left suprahilar mass is again seen. Right lung is clear. IMPRESSION: No definite pneumothorax. POS: [facility]
--- NOTE | 2020-01-07 13:27 | RAD ---
Chest 2 views and stool extend toward HISTORY: Lung mass with biopsy. Follow-up. COMPARISON: Earlier exam on the same date. FINDINGS: Cardiac silhouette is magnified. Left upper lobe mass again demonstrated. Each lung well-inflated. No evidence of pneumothorax. IMPRESSION : No evidence of pneumothorax.
--- NOTE | 2020-01-07 14:43 | CT ---
CT-guided biopsy left upper lobe lung mass. Conscious sedation: At least 40 minutes spent with the patient for conscious sedation. FINDINGS: After explaining the procedure and answering all questions, limited CT imaging of the upper chest was performed. The lesion is slightly larger than on the 12/02/2019 CT scan, with more abutment of the pleural surface. Sterile technique, buffered local anesthesia, CT guidance, conscious sedation, and a left anterior in tercostal approach were used to carefully advance a 19-gauge trocar needle into the spiculated mass. Position was confirmed with CT. A total of 4 20-gauge core biopsy specimens were obtained and eventually submitted to pathology for e valuation. Needle was removed. No evidence of complication. Patient tolerated the procedure well and was eventually dismissed in good condition. IMPRESSION : Technically successful CT-guided biopsy left lung mass. Pathology is pending.
--- NOTE | 2020-01-08 09:39 | CT ---
CT-guided biopsy left upper lobe lung mass. Conscious sedation: At least 40 minutes spent with the patient for conscious sedation. FINDINGS: After explaining the procedure and answering all questions, limited CT imaging of the upper chest was performed. The lesion is slightly larger than on the 12/02/2019 CT scan, with more abutment of the pleural surface. Sterile technique, buffered local anesthesia, CT guidance, conscious sedation, and a left anterior in tercostal approach were used to carefully advance a 19-gauge trocar needle into the spiculated mass. Position was confirmed with CT. A total of 4 20-gauge core biopsy specimens were obtained and eventually submitted to pathology for e valuation. Needle was removed. No evidence of complication. Patient tolerated the procedure well and was eventually dismissed in good condition. IMPRESSION : Technically successful CT-guided biopsy left lung mass. Pathology is pending. Transcribed Date/Time: 01/08/2020 9:39 AM
== END 2020-01-07 13:35 | disposition home or self-care (01) ==
LOC: CT 09:05
PROVIDERS: ATTEND Internal Medicine Pulmonary Disease
PROC: 0BBG3ZX Excision of Left Upper Lung Lobe, Percutaneous Approach, Diagnostic (ICD-10-PCS; principal; 2020-01-07)
DX: J84.10 Pulmonary fibrosis, unspecified (principal); J18.9 Pneumonia, unspecified organism; I11.0 Hypertensive heart disease with heart failure; I50.9 Heart failure, unspecified; E11.9 Type 2 diabetes mellitus without complications; E78.5 Hyperlipidemia, unspecified; I25.10 Atherosclerotic heart disease of native coronary artery without angina pectoris; I48.91 Unspecified atrial fibrillation; J44.9 Chronic obstructive pulmonary disease, unspecified; Z79.84 Long term (current) use of oral hypoglycemic drugs
CPT/HCPCS: 32405; 71045; 77002; 85610; 85730; 88305; 88312

== ENCOUNTER 2020-02-10 12:23 | Outpatient (CLI) | payer MEDICARE ==
--- NOTE | 2020-02-10 13:01 | RAD ---
XR Chest Pa Lat STANDARD HISTORY: Dyspnea COMPARISON: 12/06/2019 FINDINGS: The heart size is normal. The lungs are well expanded without focal areas of consolidation, pneumothorax or pleural effusions. The left hilar/suprahilar mass noted on the previous exam is again seen and appears slightly larger than on the previous study. IMPRESSION: No radiographic evidence of acute cardiopulmonary process.
== END 2020-02-10 12:24 | disposition home or self-care (01) ==
LOC: BICRAD 12:23
PROVIDERS: ATTEND Internal Medicine Pulmonary Disease
DX: R06.00 Dyspnea, unspecified (principal)
CPT/HCPCS: 71046

== ENCOUNTER 2020-03-03 09:52 | Outpatient (CLI) | payer MEDICARE ==
--- NOTE | 2020-03-03 13:59 | PET ---
Radionucleotide PET scan with CT attenuation correction HISTORY: Left lung mass. Localized swelling mass and lump. FINDINGS: Physiologic uptake of radiotracer is present within the enteric system and along each urina ry tract. There is a focal lobular area of markedly increased radiotracer uptake involving the central aspect o f the left upper lobe mass. Maximum SUV 16.0. On the axial images, the area of hypermetabolic activity is 3.7 cm x 3.4 cm greatest diameters. It is in the location of biopsy tissue acquisition fr om 01/07/2020. Relatively large pulmonary vessels involving surrounds of the hypermetabolic portion of the mass. The abrupt termination of the bronchus at the level of the lesion is favored to be assoc iated with the anterior segment of the left upper lobe. The non-hypermetabolic compressed lung around the mass has increased since the prior study, measuring an overall diameter on the axial images of 7.6 cm x 4.5 cm where it was previously 4.2 cm x 3.[address] images, the hypermetabolic portion of the mass is inseparable from the surrounding non- hypermetabolic lung parenchyma. No hypermetabolic mediastinal lymph nodes are apparent. No distant abnormalities. Subtle activity is associated with the subcutaneous tissue at the anterior para midline right mid and lower abdominal wall. No associated mass on the CT images. The nondiagnostic CT attenuation correction images show calcification in the arterial structures. A s mall fragment of radiopaque tubing is present within the upper anterior abdominal wall. IMPRESSION : Left suprahilar hypermetabolic neoplasm with increasing surrounding non-hypermetabolic atelectasis. C T biopsy from 01/07/2020 was in the favored location but did not yield neoplasm. Based on the prior biopsy, the inability to differentiate the neoplasm versus peripheral atelectasis, and the number and size of pulmonary vessels in the area, bronchoscopy would likely be more appropriate than repeat percutaneous biopsy for tissue acquisition. The anterior segment left upper lobe bronchus appears to terminate at the mass. No evidence of metastatic disease.
== END 2020-03-03 09:53 | disposition home or self-care (01) ==
LOC: PET 09:52
PROVIDERS: ATTEND Internal Medicine Pulmonary Disease
DX: R22.2 Localized swelling, mass and lump, trunk (principal); J98.11 Atelectasis
CPT/HCPCS: 78815; A9552

== ENCOUNTER 2020-03-12 09:08 | Observation (INO) | payer MEDICARE ==
[2020-03-12] MEDS ORDERED: methylPREDNISolone Sod Succ/PF 125 MG/2 ML VIAL ONE (10:07)
[2020-03-12] MEDS ORDERED: Cefepime 1 GM VIAL ONE (10:07)
[2020-03-12 10:41] LABS: #Monocytes 0.6 thou/uL (0.11-0.59); #Neutrophils 7.7 thou/uL (1.40-6.50); %Basophils 0.5 % (0.0-1.0); %Eosinophils 0.3 % (0.0-10.0); %Lymphocytes 10.4 % (21.0-51.0); %Monocytes 6.4 % (0.0-10.0); %Neutrophils 82.4 % (42.0-75.0); Hemoglobin 13.9 g/dL (14.0-18.0); Mean Corpuscular HGB CONC 32.4 g/dL (32.0-36.0); Mean Corpuscular Hemoglobin 30.4 pg (27.0-31.0); Mean Corpuscular Volume 93.6 fL (78.0-98.0); Mean Platelet Volume 6.9 fL (7.4-10.4); Platelet Count 291 thou/uL (130-400); RBC Distribution Width 11.7 % (11.5-14.5); Red Blood Cell (RBC) Count 4.59 mill/uL (4.70-6.10); White Blood Cell (WBC) Count 9.4 thou/uL (4.8-10.8)
[2020-03-12 10:42] LABS: PTT 31.1 sec (22.9-36.1); Prothrombin Time 12.9 sec (12.0-14.7)
--- NOTE | 2020-03-12 10:43 | RAD ---
EXAM: XR Chest 1 View Portable PROVIDED CLINICAL HISTORY: Dyspnea COMPARISON: 02/10/2020 FINDINGS: Cardiac and mediastinal silhouette is unchanged in appearance. Left suprahilar mass is redemonstrated . Lungs appear otherwise clear. There is no pleural fluid or pneumothorax apparent. IMPRESSION: Left suprahilar mass suspicious for malignancy persists.
[2020-03-12 11:24] LABS: ALT (SGPT) 11 U/L (8-55); AST (SGOT) 14 U/L (5-34); Albumin 3.7 g/dL (3.4-4.8); Alkaline Phosphatase 128 U/L (40-110); Anion Gap 16 mmol/L (10-20); BUN (Urea Nitrogen) 11 mg/dL (8.4-25.7); Bilirubin, Total 0.6 mg/dL (0.2-1.2); Calc. Creatinine Clearance 0 mL/min (70-130); Calcium 9.1 mg/dL (7.8-10.44); Carbon Dioxide 24 mmol/L (23-31); Chloride 99 mmol/L (98-107); Estimated GFR-MDRD Greater than 90; Glucose 313 mg/dL (80-115); Potassium 4.3 mmol/L (3.5-5.1); Protein, Total 7.7 g/dL (5.8-8.1); Sodium 135 mmol/L (136-145)
[2020-03-12] MEDS ORDERED: Lidocaine 4% PF 5 ML AMP NEB SCH (12:15)
[2020-03-12 12:21] LABS: Bilirubin Negative (Negative); Blood, Urine Negative (Negative); Clarity Clear (Clear); Glucose, Urine (Dipstick) >=1000 mg/dL (Negative); Ketone, Urine Negative (Negative); Leukocyte Negative (Negative); Nitrite Negative (Negative); Protein, Urine (Dipstick) Negative (Neg-Trace); Specific Gravity, Urine 1.015 (1.005-1.030); Urobilinogen 0.2 mg/dL (Less than 2); pH, Urine 6.5 (5.0-9.0)
[2020-03-12 14:08] LABS: Troponin I 0.039 ng/mL (< 0.028)
[2020-03-12 14:24] LABS: SARS-CoV-2 NAA Rapid Test Not Detected (NotDetected)
[2020-03-12] MEDS ORDERED: HumaLOG 300 UNITS/3 ML VIAL SC PRN (15:42)
[2020-03-12] MEDS ORDERED: Dextrose 50% Abboject 50 ML SYRINGE SLOW IVP PRN ×2 (15:42→17:31)
[2020-03-12] MEDS ORDERED: Dextrose 5% in Water 1,000 ML IV PRN ×2 (15:42→17:31)
[2020-03-12 15:59] VITALS: BMI 19.3
[2020-03-12 17:09] LABS: Troponin I 0.044 ng/mL (< 0.028)
[2020-03-12] MEDS: methylPREDNISolone Sod Succ 40 MG VIAL IVP SCH ×2 (17:44→21:23)
[2020-03-12] MEDS: Sodium Chloride 0.9% 1,000 ML IV SCH (17:44)
[2020-03-12] MEDS: HumaLOG 300 UNITS/3 ML VIAL SC PRN ×2 (17:59→21:23)
[2020-03-12] MEDS ORDERED: Cefepime 1 GM in Sodium Chloride 0.9% 100 ML IVPB SCH (21:00)
[2020-03-12] MEDS: Lisinopril 20 MG TAB PO SCH (21:22)
[2020-03-12] MEDS: Insulin Glargine 10 UNITS in Pre-Filled Syringe SC SCH (21:22)
[2020-03-12] MEDS: hydrALAZINE 25 MG TAB PO SCH (21:22)
[2020-03-12] MEDS: Cefepime 1 GM in Sodium Chloride 0.9% 100 ML IVPB SCH (21:23)
--- NOTE | 2020-03-13 00:42 | HP ---
CHIEF COMPLAINT: Shortness of breath. HISTORY OF PRESENT ILLNESS: The patient is a 64-year-old male, who was sent from the intern [employer] office for a bronchoscopy and a biopsy. The patient currently denies any shortness of breath on exertion. He denies any fevers or chills. The patient was noted to have a mass on CT and had a CT-guided biopsy, which was negative in January 07, 2020. He was scheduled for a PET scan, but because of his uncontrolled diabetes, the PET scan was not done. Eventually, it was done on 03/03. His PET scan indicated a large suprahilar hypermetabolic neoplasm 3 x 4 cm. [address] felt that CT-guided biopsy CT-guided biopsy was recommended. The patient at this time was brought into the hospital for bronchoscopy and biopsy. PAST MEDICAL HISTORY: He has a history of hypertension, CAD, diabetes, CHF, and cardiac arrhythmias. Systolic heart failure, EF 40% to 45%, which is compensated currently. ALLERGIES: HE HAS NO KNOWN DRUG ALLERGIES. MEDICATIONS: His home medications are: 1. Amiodarone 200 mg daily. 2. Eliquis, which has been on hold. 3. Aspirin 81 mg daily. 4. Lipitor. 5. Coreg. 6. Insulin. 7. Hydralazine. 8. Lisinopril. 9. Spironolactone. SURGICAL HISTORY: Has a CT-guided biopsy. FAMILY HISTORY: No history of heart disease or stroke. REVIEW OF SYSTEMS: All negative, except for the ones mentioned above in the HPI. PHYSICAL EXAMINATION: VITAL SIGNS: Temperature of 98.4, 89, 16, 96% on room air, and 157/88. GENERAL: He is awake, alert, and oriented x3. Does not appear in distress. He is upset because he has to be here. CV: S1, S2 present. No murmurs, rubs, or gallops. ABDOMEN: Soft and nontender. Bowel sounds are present x2. LUNGS: Mild expiratory wheezing. ABDOMEN: Soft and nontender. Bowel sounds are present x2. EXTREMITIES: No edema. Pedal pulses are present x2. NEURO: There are no focal deficits noted. SKIN: No cuts, lesions, or bruises noted. LABORATORY DATA: WBCs of 9.4, hemoglobin of 13.9, hematocrit of 42.9, and platelets of 291. Chemistries, sodium of 135, potassium of 4.3, BUN of 11, creatinine 0.95, and glucose of 420. His troponin is 0.037. His BNP is 271. He did have a chest x-ray, which did not show any acute abnormalities, just indicated a left suprahilar mass. ASSESSMENT AND PLAN: The patient is a very pleasant 64-year-old man, who presents to the hospital with complaints of: 1. Shortness of breath, most likely a little bit of chronic obstructive pulmonary disease exacerbation. We will start him on some steroids and antibiotics per recommendation of Pulmonology. We will consult Pulmonology. The patient will undergo a biopsy tomorrow. We will hold his aspirin and his Eliquis for now. We will continue his other home medications. 2. Paroxysmal atrial fibrillation. We will continue his home medications except we will hold anticoagulation. 3. Dyslipidemia. Continue statin. 4. Hypertension. We will also continue his home medications. 5. Diabetes is very uncontrolled. We will start him on his home medications and also we will put in Humalog a.c. h.s. 6. Deep vein thrombosis prophylaxis. We will put the patient on SCDs for now. He is going to be n.p.o. for tomorrow for a bronchoscopy with biopsy. Job ID: [id number]
[2020-03-13] MEDS: hydrALAZINE 25 MG TAB PO SCH ×3 (05:11→20:50)
[2020-03-13] MEDS: methylPREDNISolone Sod Succ 40 MG VIAL IVP SCH ×4 (05:11→20:51)
[2020-03-13] MEDS: Lisinopril 20 MG TAB PO SCH ×2 (05:12→20:51)
[2020-03-13] MEDS: HumaLOG 300 UNITS/3 ML VIAL SC PRN (07:17)
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
[2020-03-13] MEDS ORDERED: Enalaprilat Dihydrate 1.25 MG/ML VIAL SLOW IVP SCH (08:45)
[2020-03-13] MEDS: Sodium Chloride 0.9% 1,000 ML IV SCH (08:55)
[2020-03-13] MEDS ORDERED: FLU VACC QS2020-21(6MOS UP)/PF 60 MCG/0.5 ML SYRINGE IM ONE (09:00)
[2020-03-13] MEDS ORDERED: Aspirin Chewable 81 MG TAB PO SCH (09:00)
[2020-03-13] MEDS: Cefepime 1 GM in Sodium Chloride 0.9% 100 ML IVPB SCH ×2 (09:07→21:02)
[2020-03-13] MEDS ORDERED: PROPOFOL 200 MG/20 ML VIAL ONE (10:16)
[2020-03-13] MEDS ORDERED: Lidocaine 1% PF 5 ML VIAL ONE (10:16)
[2020-03-13] MEDS ORDERED: Ondansetron PF 4 MG/2 ML Vial ONE (10:16)
[2020-03-13] MEDS ORDERED: Succinylcholine 200 MG/10 ml SYRINGE FS ONE (10:16)
[2020-03-13] MEDS ORDERED: EPINEPHrine 1 MG/10 ML Abboject SYRINGE ONE ×2 (10:16→13:17)
[2020-03-13] MEDS ORDERED: Labetalol HCl 100 MG/20 ML VIAL ONE (10:16)
[2020-03-13] MEDS ORDERED: Fentanyl 100 MCG/2 ML VIAL ONE (12:37)
[2020-03-13] MEDS ORDERED: hydrALAZINE 20 MG/ML VIAL ONE (13:52)
[2020-03-13] MEDS ORDERED: hydrALAZINE 25 MG TAB PO SCH (15:00)
[2020-03-13] MEDS: Spironolactone 25 MG TAB PO SCH (15:42)
[2020-03-13] MEDS ORDERED: hydrALAZINE 20 MG/ML VIAL SLOW IVP SCH (15:45)
[2020-03-13] MEDS: Carvedilol 6.25 MG TAB PO SCH (16:50)
--- NOTE | 2020-03-13 16:50 | PDOC.DS.DS ---
Provider - Provider Date of Admission: 03/12/20 12:01 Date of Discharge: 03/13/20 Admitting Provider: Meenu Baca MD Primary Care Physician: Jaswinder Solitario MD Course - Hospital Course Hospital Course: Mr. Medley is a 64-year-old patient who was admitted for bronchoscopy and biopsy of a mass seen recently on her CT scan. This reportedly was originally planned to be done on an outpatient basis but the patient did not show up. He eventually was admitted and pulmonary services were consulted. He successfully had a bronchoscopy today. He did well and is being discharged home today. - Labs Lab Results: 03/12/20 10:21 03/12/20 10:21 Abnormal Lab Results - Last 48 hrs 03/12/20 10:21: Sodium 135 L, Alkaline Phosphatase 128 H, Globulin 4.0 H, Albumin/Globulin Ratio 0.9 L 03/12/20 10:21: RBC 4.59 L, Hgb 13.9 L, MPV 6.9 L, Neutrophils % 82.4 H, Lymphocytes % 10.4 L, Neutrophils # 7.7 H, Lymphocytes # 1.0 L, Monocytes # 0.6 H 03/12/20 10:21: Troponin I 0.037 H 03/12/20 10:21: B-Natriuretic Peptide 271.3 H 03/12/20 12:00: Urine Glucose (UA) >=1000 A 03/12/20 13:28: Troponin I 0.039 H 03/12/20 16:38: Troponin I 0.044 H Microbiology - Entire Visit 03/12/20 10:10 Venous blood - Left Arm Blood Culture - Preliminary Specimen has been received and culture in progress. No Growth to date. 03/12/20 10:24 Venous blood - Right Arm Blood Culture - Preliminary Specimen has been received and culture in progress. No Growth to date. - Physical Exam Vitals: Vital Signs (12 hours) Temp Pulse Resp BP BP Pulse Ox 03/13/20 14:40 98.0 F 79 16 206/107 H 96 03/13/20 09:57 68 199/105 H 03/13/20 07:31 98.0 F 65 16 194/104 H 100 03/13/20 05:12 166/97 H 03/13/20 05:11 79 166/97 H Weight Weight 130 lb 11.2 oz Physical Exam: The patient was seen and examined on the day of discharge. Problem - Discharge Plan Assessment: Patient is doing well and is being discharged home today. Plan - Discharge Medications Home Medications: Medication Instructions Recorded Confirmed Type Aspirin Chewable [Aspirin Chewable 81 mg PO DAILY #30 tab 08/22/18 03/12/20 Rx Tablet] Carvedilol [Coreg] 6.25 mg PO BID #60 tab 08/22/18 03/12/20 Rx Spironolactone [Aldactone] 25 mg PO QAM-WM tab 08/25/18 03/12/20 Rx Apixaban [Eliquis] 5 mg PO BID #60 tab 10/15/18 03/12/20 Rx Isosorbide Dinitrate [Isordil] 10 mg PO BID #60 tab 10/15/18 03/12/20 Rx Lisinopril [Zestril] 20 mg PO BID #60 tab 10/15/18 03/12/20 Rx hydrALAZINE [Apresoline] 1 tab PO TID 03/12/20 03/12/20 History Carvedilol [Coreg] 12.5 mg PO BID-WM tab 03/13/20 Rx HumuLIN 70/30 [HumuLIN 70/30 Vial] 10 units SC ACHS vial 03/13/20 Rx hydrALAZINE [Apresoline] 75 mg PO TID tab 03/13/20 Rx Allergies: No Known Allergies Allergy (Verified 03/06/20 14:55) - Discharge Instructions Activity:: Activity as Tolerated Nourishment:: No Restrictions Therapies:: Not Applicable Equipment/Supplies:: Not Applicable IV Therapy:: Not Applicable - Follow up Plan Referrals: Jaswinder Solitario MD [Primary Care Provider] - Disposition: HOME Quality - Care Measures CORE MEASURES:: N/A
[2020-03-13] MEDS: HumuLIN 70/30 (300 UNITS/3 ML VIAL) SC SCH ×2 (16:58→20:49)
[2020-03-13] MEDS: Insulin Glargine 10 UNITS in Pre-Filled Syringe SC SCH (20:49)
[2020-03-13] MEDS: Isosorbide Dinitrate 5 MG TAB PO SCH (20:51)
[2020-03-13] MEDS ORDERED: Carvedilol 6.25 MG TAB PO SCH (21:00)
[2020-03-14] MEDS: methylPREDNISolone Sod Succ 40 MG VIAL IVP SCH ×2 (02:16→09:29)
[2020-03-14 04:04] LABS: #Lymphocytes 0.6 thou/uL (1.20-3.40); #Monocytes 0.7 thou/uL (0.11-0.59); #Neutrophils 15.7 thou/uL (1.40-6.50); %Eosinophils 0.1 % (0.0-10.0); %Lymphocytes 3.7 % (21.0-51.0); %Monocytes 3.8 % (0.0-10.0); %Neutrophils 92.4 % (42.0-75.0); Hemoglobin 13.4 g/dL (14.0-18.0); Mean Corpuscular HGB CONC 32.3 g/dL (32.0-36.0); Mean Corpuscular Hemoglobin 31.2 pg (27.0-31.0); Mean Corpuscular Volume 96.5 fL (78.0-98.0); Platelet Count 305 thou/uL (130-400); RBC Distribution Width 11.9 % (11.5-14.5)
[2020-03-14 04:19] LABS: Anion Gap 15 mmol/L (10-20); BUN (Urea Nitrogen) 18 mg/dL (8.4-25.7); Calc. Creatinine Clearance 65 mL/min (70-130); Carbon Dioxide 25 mmol/L (23-31); Chloride 101 mmol/L (98-107); Estimated GFR-MDRD Greater than 90; Glucose 328 mg/dL (80-115); Potassium 4.9 mmol/L (3.5-5.1); Sodium 136 mmol/L (136-145)
[2020-03-14] MEDS: HumaLOG 300 UNITS/3 ML VIAL SC PRN (05:55)
[2020-03-14 08:08] VITALS: BP 173/89; TEMP 98.9
[2020-03-14] MEDS: hydrALAZINE 25 MG TAB PO SCH (09:28)
[2020-03-14] MEDS: HumuLIN 70/30 (300 UNITS/3 ML VIAL) SC SCH (09:28)
[2020-03-14] MEDS: Carvedilol 6.25 MG TAB PO SCH (09:28)
[2020-03-14] MEDS: Spironolactone 25 MG TAB PO SCH (09:28)
[2020-03-14] MEDS: Lisinopril 20 MG TAB PO SCH (09:29)
[2020-03-14] MEDS: Isosorbide Dinitrate 5 MG TAB PO SCH (09:29)
--- NOTE | 2020-03-15 19:10 | OP ---
DATE OF PROCEDURE: 03/13/2020 PROCEDURE PERFORMED: Bronchoscopy with transbronchial biopsy under fluoroscopy. INDICATIONS: Left upper lung mass, rule out bronchogenic carcinoma. POSTBRONCHOSCOPY DIAGNOSIS: Left upper lung mass, rule out bronchogenic carcinoma. DESCRIPTION OF PROCEDURE: After informed consent, the patient was put under general anesthesia with endotracheal tube in place. The flexible Pentax bronchoscope was passed. Distal trachea was visualized, which was normal. Entering the right lung, right upper, right middle lobe, and right lower lobes were visualized, which were unremarkable. Entering the left lung, mainstem bronchus was normal. Distally the left upper lung mucosa was thickened and narrowed, particularly the apical posterior segment was thickened and narrowed. Mucosa was rough, but no obvious endobronchial disease was seen. The rest of the lower lung basilar segment was normal. The area of the left upper lung was lavaged with normal saline multiple times, 50 mL was used. Thereafter, under fluoroscopy, multiple brushings were obtained from the right apical and apical posterior segment corresponding to the mass under fluoroscopy. Additionally, transbronchial biopsies from the same area, apical and apical posterior segments were done x3. Additionally, biopsies from the spot between the apical and posterior segment was done multiple times. There was some brisk bleeding, which was controlled with instillation of epinephrine 1:10,000, total 11 mL. The patient tolerated the procedure well. Washings will be sent for cytology. Pathology. The patient is being monitored under general anesthesia by Anesthesia. Once he is extubated, he can go back to his room. He could be discharged home either later today or tomorrow. Follow up with Dr. Staley regarding the results of the biopsy. Further recommendation thereafter. Job ID: [id number]
== END 2020-03-14 10:45 | disposition home or self-care (01) ==
LOC: ERS 09:08 → ERHOLD 12:01 → 2NO 15:57
PROVIDERS: ADMIT Internal Medicine; ATTEND Internal Medicine
PROC: 0BDG8ZX Extraction of Left Upper Lung Lobe, Via Natural or Artificial Opening Endoscopic, Diagnostic (ICD-10-PCS; principal; 2020-03-13)
PROC: 0BBG8ZX Excision of Left Upper Lung Lobe, Via Natural or Artificial Opening Endoscopic, Diagnostic (ICD-10-PCS; 2020-03-13)
DX: C34.12 Malignant neoplasm of upper lobe, left bronchus or lung (principal); I11.0 Hypertensive heart disease with heart failure; I50.20 Unspecified systolic (congestive) heart failure; I25.10 Atherosclerotic heart disease of native coronary artery without angina pectoris; E11.9 Type 2 diabetes mellitus without complications; I48.0 Paroxysmal atrial fibrillation; E78.5 Hyperlipidemia, unspecified; I25.2 Old myocardial infarction; J44.9 Chronic obstructive pulmonary disease, unspecified; Z23 Encounter for immunization; Z86.73 Personal history of transient ischemic attack (TIA), and cerebral infarction without residual deficits; Z87.891 Personal history of nicotine dependence; Z79.01 Long term (current) use of anticoagulants; Z79.4 Long term (current) use of insulin; Z79.82 Long term (current) use of aspirin; Z79.899 Other long term (current) drug therapy; Z95.1 Presence of aortocoronary bypass graft; Z95.5 Presence of coronary angioplasty implant and graft; Z20.828 Contact with and (suspected) exposure to other viral communicable diseases
CPT/HCPCS: 31623; 31628; 71045; 80048; 80053; 81003; 82553; 82962 ×3; 83605; 83880; 84484 ×2; 85025 ×2; 85610; 85730; 87040; 88104; 88112; 88305; 88313; 88341; 88342; 90662; 93005; 94640 ×3; 96365; 96375; 99285; G0008; U0002; 36415; 36416; 90471; 96376; G0378; J0171; J0360; J0692; J1815; J2405; J2704; J2920; J2930; J3010; J3490; J7620

== ENCOUNTER 2020-09-07 08:59 | Day surgery (SDC) | payer MEDICARE ==
[2020-09-07] MEDS ORDERED: hydrALAZINE 20 MG/ML VIAL ONE (13:20)
[2020-09-07] MEDS ORDERED: Bupivacaine 0.25% HCL 30 ML VIAL ONE (15:26)
[2020-09-07] MEDS ORDERED: Lidocaine 1% w/Epinephrine 1:100K 20 ML VIAL ONE (15:26)
[2020-09-07] MEDS ORDERED: Fentanyl 100 MCG/2 ML VIAL ONE (15:33)
[2020-09-07] MEDS ORDERED: Midazolam HCl 2 mg/2 ml Vial ONE (15:33)
== END 2020-09-07 18:15 | disposition home or self-care (01) ==
LOC: SDC 08:59
PROVIDERS: ATTEND Surgery
PROC: 0JH60WZ Insertion of Totally Implantable Vascular Access Device into Chest Subcutaneous Tissue and Fascia, Open Approach (ICD-10-PCS; principal; 2020-09-07)
PROC: 02HV33Z Insertion of Infusion Device into Superior Vena Cava, Percutaneous Approach (ICD-10-PCS; 2020-09-07)
DX: C34.12 Malignant neoplasm of upper lobe, left bronchus or lung (principal); M19.90 Unspecified osteoarthritis, unspecified site; E78.00 Pure hypercholesterolemia, unspecified; E11.9 Type 2 diabetes mellitus without complications; I11.9 Hypertensive heart disease without heart failure; Z86.73 Personal history of transient ischemic attack (TIA), and cerebral infarction without residual deficits; Z87.891 Personal history of nicotine dependence
CPT/HCPCS: 36416; 71045; C1788; J0360; J0690; J1642; J2250; J3010; S0020

== ENCOUNTER 2022-04-06 05:45 | Inpatient (IN) | payer MEDICARE ==
[2022-04-06] MEDS ORDERED: Fentanyl CADD 100 ML IV SCH ×2 (06:00→08:30)
[2022-04-06] MEDS ORDERED: Magnesium 2 GM/50 ML BAG (IN WATER) ONE (06:49)
[2022-04-06] MEDS ORDERED: methylPREDNISolone Sod Succ/PF 125 MG/2 ML VIAL ONE (06:49)
[2022-04-06] MEDS ORDERED: Furosemide 40 MG/4 ML VIAL ONE (06:49)
[2022-04-06 06:51] LABS: SARS-CoV-2 NAA Rapid Test Not Detected (NotDetected)
[2022-04-06] MEDS ORDERED: Potassium Chloride 20 MEQ in Sodium Chloride 0.9% 250 ML 250 ML IVPB SCH (07:15)
[2022-04-06 07:30] LABS: CKMB 3.1 ng/mL (0-6.6)
[2022-04-06] MEDS ORDERED: Dextrose 5% in Water 1,000 ML IV PRN (08:21)
[2022-04-06] MEDS ORDERED: Senokot S 8.6-50 MG TAB PO PRN (08:21)
[2022-04-06] MEDS ORDERED: Calcium Carbonate 500 MG ChewTAB PO PRN (08:21)
[2022-04-06] MEDS ORDERED: Bisacodyl 10 MG SUPP PR PRN (08:21)
[2022-04-06] MEDS ORDERED: Dextrose 50% Abboject 50 ML SYRINGE SLOW IVP PRN (08:21)
[2022-04-06] MEDS ORDERED: DISCONTINUE PREVIOUS NARCOTIC PAIN MEDICATIONS AND BENZODIAZEPINES FS SCH (08:30)
[2022-04-06] MEDS ORDERED: Ventilator Sedation Protocol FS PRN (08:30)
[2022-04-06] MEDS ORDERED: Electrolyte Replacement Protocol 1 EACH FS SCH (08:30)
[2022-04-06] MEDS ORDERED: Propofol 1,000 MG/100 ML VIAL IV PRN (08:30)
[2022-04-06] MEDS ORDERED: Fentanyl BOLUS 250 ML IVPB PRN (08:30)
[2022-04-06] MEDS ORDERED: Propofol BOLUS 1,000 MG/100 ML VIAL IV PRN (08:30)
[2022-04-06] MEDS ORDERED: Morphine 4 MG/ML VIAL SLOW IVP PRN (08:30)
[2022-04-06] MEDS ORDERED: Midazolam HCl 2 mg/2 ml Vial SLOW IVP PRN (08:30)
[2022-04-06 08:35] VITALS: BMI 18.8
[2022-04-06] MEDS ORDERED: Carvedilol 6.25 MG TAB PO SCH (09:00)
[2022-04-06] MEDS ORDERED: Vancomycin 1 GM in Premix Bag 1 BAG IVPB SCH (09:00)
[2022-04-06] MEDS: Sodium Chloride 0.9% 1,000 ML IV SCH (09:03)
[2022-04-06] MEDS ORDERED: Iopamidol-370 76% 500 ML 1 ML ONE (09:07)
[2022-04-06] MEDS: Isosorbide Dinitrate 5 MG TAB PO SCH ×2 (09:11→21:05)
[2022-04-06] MEDS: Lisinopril 5 MG TAB PO SCH ×2 (09:11→20:49)
[2022-04-06] MEDS: hydrALAZINE 25 MG TAB PO SCH ×3 (09:11→20:45)
[2022-04-06] MEDS ORDERED: Electrolyte Replacement Protocol FS PRN (09:15)
[2022-04-06] MEDS: Cefepime 2 GM in Sodium Chloride 0.9% 100 ML IVPB SCH ×2 (09:23→20:43)
[2022-04-06] MEDS: Aspirin Chewable 81 MG TAB PO SCH (09:24)
[2022-04-06] MEDS: Pantoprazole 40 MG VIAL IVP SCH (09:25)
[2022-04-06] MEDS: Enoxaparin Sodium 40 MG/0.4 ML SYRINGE SC SCH (09:25)
[2022-04-06 10:22] LABS: Phosphorus 2.9 mg/dL (2.3-4.7)
[2022-04-06] MEDS: VANCOMYCIN 1.25 GM/250 ML BAG 1.25 GM in Premix Bag 1 BAG IVPB SCH (10:44)
[2022-04-06] MEDS ORDERED: Potassium Chloride 20 MEQ in Premix Bag 1 BAG IVPB SCH (11:00)
[2022-04-06 11:21] LABS: Magnesium 1.8 mg/dL (1.6-2.6)
[2022-04-06] MEDS ORDERED: FLU VACC QS2022-23(65YR UP)/PF 240 MCG/0.7 ML SYRINGE IM ONE (12:15)
[2022-04-06] MEDS: methylPREDNISolone Sod Succ 40 MG VIAL IVP SCH ×2 (12:24→17:54)
[2022-04-06] MEDS: HumaLOG 300 UNITS/3 ML VIAL SC PRN ×2 (12:25→18:18)
[2022-04-06 17:27] LABS: Potassium 4.4 mmol/L (3.5-5.1)
[2022-04-07] MEDS: methylPREDNISolone Sod Succ 40 MG VIAL IVP SCH ×4 (00:13→19:17)
[2022-04-07] MEDS: Sodium Chloride 0.9% 1,000 ML IV SCH (05:14)
[2022-04-07 05:23] LABS: #Lymphocytes 0.5 thou/uL (1.20-3.40); #Monocytes 0.7 thou/uL (0.11-0.59); #Neutrophils 9.2 thou/uL (1.40-6.50); %Eosinophils 0.1 % (0.0-10.0); %Monocytes 6.4 % (0.0-10.0); %Neutrophils 88.6 % (42.0-75.0); Hemoglobin 11.8 g/dL (14.0-18.0); Mean Corpuscular HGB CONC 31.8 g/dL (32.0-36.0); Mean Corpuscular Hemoglobin 30.9 pg (27.0-31.0); Mean Corpuscular Volume 97.3 fl (78.0-98.0); Mean Platelet Volume 7.9 fL (7.4-10.4); Platelet Count 228 10x3/uL (130-400); RBC Distribution Width 11.1 % (11.5-14.5); Red Blood Cell (RBC) Count 3.81 mill/uL (4.70-6.10); White Blood Cell (WBC) Count 10.4 10x3/uL (4.8-10.8)
[2022-04-07 05:29] LABS: Anion Gap 10 mmol/L (10-20); BUN (Urea Nitrogen) 14 mg/dL (8.4-25.7); Calc. Creatinine Clearance 75 mL/min (70-130); Carbon Dioxide 29 mmol/L (23-31); Chloride 100 mmol/L (98-107); Estimated GFR 97; Glucose 166 mg/dL (80-115); Magnesium 1.6 mg/dL (1.6-2.6); Potassium 3.7 mmol/L (3.5-5.1); Sodium 135 mmol/L (136-145)
[2022-04-07] MEDS: hydrALAZINE 25 MG TAB PO SCH ×3 (07:33→20:38)
[2022-04-07] MEDS: Cefepime 2 GM in Sodium Chloride 0.9% 100 ML IVPB SCH ×2 (07:33→20:39)
[2022-04-07] MEDS: Enoxaparin Sodium 40 MG/0.4 ML SYRINGE SC SCH (07:33)
[2022-04-07] MEDS: Aspirin Chewable 81 MG TAB PO SCH (07:34)
[2022-04-07] MEDS: Lisinopril 5 MG TAB PO SCH ×2 (07:34→20:38)
[2022-04-07] MEDS: Spironolactone 25 MG TAB PO SCH (07:34)
[2022-04-07] MEDS: Pantoprazole 40 MG VIAL IVP SCH (07:34)
[2022-04-07] MEDS: Isosorbide Dinitrate 5 MG TAB PO SCH ×2 (07:36→20:38)
[2022-04-07] MEDS ORDERED: Magnesium 2 GM/50 ML(in water) 2 GM in Premix Bag 1 BAG IVPB SCH (08:00)
[2022-04-07] MEDS: VANCOMYCIN 1.25 GM/250 ML BAG 1.25 GM in Premix Bag 1 BAG IVPB SCH (10:34)
[2022-04-07] MEDS: HumaLOG 300 UNITS/3 ML VIAL SC PRN ×3 (11:32→20:39)
[2022-04-08] MEDS: methylPREDNISolone Sod Succ 40 MG VIAL IVP SCH ×4 (00:06→20:34)
[2022-04-08] MEDS: HYDROcodone/Acetaminophen 5/325 mg Tablet PO PRN (04:20)
[2022-04-08 05:25] LABS: #Lymphocytes 0.1 thou/uL (1.20-3.40); #Monocytes 0.2 thou/uL (0.11-0.59); #Neutrophils 8.6 thou/uL (1.40-6.50); %Basophils 0.1 % (0.0-1.0); %Lymphocytes 1.3 % (21.0-51.0); %Monocytes 2.3 % (0.0-10.0); %Neutrophils 96.3 % (42.0-75.0); Hemoglobin 12.4 g/dL (14.0-18.0); Mean Corpuscular HGB CONC 32.3 g/dL (32.0-36.0); Mean Corpuscular Hemoglobin 31.8 pg (27.0-31.0); Mean Corpuscular Volume 98.4 fl (78.0-98.0); Mean Platelet Volume 7.5 fL (7.4-10.4); Platelet Count 261 10x3/uL (130-400); RBC Distribution Width 11.2 % (11.5-14.5)
[2022-04-08] MEDS: HumaLOG 300 UNITS/3 ML VIAL SC PRN ×3 (05:26→17:46)
[2022-04-08 05:55] LABS: Anion Gap 10 mmol/L (10-20); BUN (Urea Nitrogen) 20 mg/dL (8.4-25.7); Calc. Creatinine Clearance 77 mL/min (70-130); Calcium 8.1 mg/dL (7.8-10.44); Carbon Dioxide 26 mmol/L (23-31); Chloride 99 mmol/L (98-107); Estimated GFR 98; Glucose 325 mg/dL (80-115); Magnesium 1.8 mg/dL (1.6-2.6); Potassium 4.3 mmol/L (3.5-5.1); Sodium 131 mmol/L (136-145)
[2022-04-08] MEDS ORDERED: Magnesium 2 GM/50 ML(in water) 2 GM in Premix Bag 1 BAG IVPB SCH (08:00)
[2022-04-08] MEDS: Lisinopril 5 MG TAB PO SCH (08:35)
[2022-04-08] MEDS: Spironolactone 25 MG TAB PO SCH (08:35)
[2022-04-08] MEDS: hydrALAZINE 25 MG TAB PO SCH ×3 (08:35→20:33)
[2022-04-08] MEDS: Aspirin Chewable 81 MG TAB PO SCH (08:36)
[2022-04-08] MEDS: Pantoprazole 40 MG VIAL IVP SCH (08:36)
[2022-04-08] MEDS: Enoxaparin Sodium 40 MG/0.4 ML SYRINGE SC SCH (08:37)
[2022-04-08 09:32] LABS: Vancomycin, Trough 4.8 ug/mL
[2022-04-08] MEDS: Cefepime 2 GM in Sodium Chloride 0.9% 100 ML IVPB SCH ×2 (09:35→20:34)
[2022-04-08] MEDS ORDERED: Vancomycin 1 GM in Premix Bag 1 BAG IVPB SCH (10:00)
[2022-04-08] MEDS ORDERED: HumaLOG 300 UNITS/3 ML VIAL SC PRN ×2 (10:34→11:18)
[2022-04-08] MEDS ORDERED: Lisinopril 10 MG TAB PO SCH (11:15)
[2022-04-08] MEDS: Isosorbide Dinitrate 5 MG TAB PO SCH ×2 (11:34→20:34)
[2022-04-08] MEDS ORDERED: hydrALAZINE 20 MG/ML VIAL SLOW IVP SCH (16:30)
[2022-04-08] MEDS ORDERED: NPH, Human Insulin Isophane 300 UNIT/3 ML VIAL SC SCH (16:45)
[2022-04-08] MEDS ORDERED: Insulin NPH Human Isophane 100 UNIT/ML (10 ML VIAL) SC SCH (17:00)
[2022-04-08] MEDS ORDERED: cloNIDine 0.1 MG TAB PO PRN (20:03)
[2022-04-08] MEDS: Lisinopril 10 MG TAB PO SCH (20:33)
[2022-04-08] MEDS: Senokot S 8.6-50 MG TAB PO SCH (20:34)
[2022-04-08] MEDS: guaiFENesin ER 600 MG TAB PO SCH (20:34)
[2022-04-09] MEDS: HYDROcodone/Acetaminophen 5/325 mg Tablet PO PRN (02:34)
[2022-04-09] MEDS: HumaLOG 300 UNITS/3 ML VIAL SC PRN (04:55)
[2022-04-09 05:30] LABS: #Lymphocytes 0.3 thou/uL (1.20-3.40); #Monocytes 0.4 thou/uL (0.11-0.59); #Neutrophils 8.4 thou/uL (1.40-6.50); %Eosinophils 0.1 % (0.0-10.0); %Lymphocytes 3.2 % (21.0-51.0); %Monocytes 4.3 % (0.0-10.0); %Neutrophils 92.4 % (42.0-75.0); Hemoglobin 12.6 g/dL (14.0-18.0); Mean Corpuscular HGB CONC 32.3 g/dL (32.0-36.0); Mean Corpuscular Hemoglobin 31.5 pg (27.0-31.0); Mean Corpuscular Volume 97.7 fl (78.0-98.0); Mean Platelet Volume 7.2 fL (7.4-10.4); Platelet Count 274 10x3/uL (130-400); RBC Distribution Width 11.2 % (11.5-14.5); Red Blood Cell (RBC) Count 3.99 mill/uL (4.70-6.10); White Blood Cell (WBC) Count 9.1 10x3/uL (4.8-10.8)
[2022-04-09 05:52] LABS: Anion Gap 12 mmol/L (10-20); BUN (Urea Nitrogen) 17 mg/dL (8.4-25.7); Calc. Creatinine Clearance 83 mL/min (70-130); Calcium 8.3 mg/dL (7.8-10.44); Carbon Dioxide 25 mmol/L (23-31); Chloride 101 mmol/L (98-107); Estimated GFR 100; Glucose 258 mg/dL (80-115); Potassium 4.6 mmol/L (3.5-5.1); Sodium 133 mmol/L (136-145)
[2022-04-09 07:51] VITALS: BP 117/80; TEMP 98.1
[2022-04-09] MEDS: Aspirin Chewable 81 MG TAB PO SCH (08:07)
[2022-04-09] MEDS: Lisinopril 10 MG TAB PO SCH (08:07)
[2022-04-09] MEDS: Spironolactone 25 MG TAB PO SCH (08:07)
[2022-04-09] MEDS: hydrALAZINE 25 MG TAB PO SCH (08:08)
[2022-04-09] MEDS: methylPREDNISolone Sod Succ 40 MG VIAL IVP SCH (08:08)
[2022-04-09] MEDS: guaiFENesin ER 600 MG TAB PO SCH (08:08)
[2022-04-09] MEDS: Senokot S 8.6-50 MG TAB PO SCH (08:08)
[2022-04-09] MEDS: Enoxaparin Sodium 40 MG/0.4 ML SYRINGE SC SCH (08:09)
[2022-04-09] MEDS: Isosorbide Dinitrate 5 MG TAB PO SCH (08:09)
[2022-04-09] MEDS: Cefepime 2 GM in Sodium Chloride 0.9% 100 ML IVPB SCH (08:10)
[2022-04-09] MEDS ORDERED: Multivit, Therapeutic 1 TAB PO SCH (09:00)
[2022-04-09] MEDS ORDERED: Insulin NPH Human Isophane 100 UNIT/ML (10 ML VIAL) SC SCH (09:00)
[2022-04-09] MEDS ORDERED: Folic Acid 1 MG TAB PO SCH (09:00)
== END 2022-04-09 12:30 | disposition home or self-care (01) | DRG 208 ==
LOC: ERS 05:45 → CCU 07:54 → MSONC 04-07 17:54
PROVIDERS: ADMIT Internal Medicine; ATTEND Internal Medicine
PROC: 0BH17EZ Insertion of Endotracheal Airway into Trachea, Via Natural or Artificial Opening (ICD-10-PCS; principal; 2022-04-06)
PROC: 5A1935Z Respiratory Ventilation, Less than 24 Consecutive Hours (ICD-10-PCS; 2022-04-06)
PROC: 0DH67UZ Insertion of Feeding Device into Stomach, Via Natural or Artificial Opening (ICD-10-PCS; 2022-04-06)
DX: J96.01 Acute respiratory failure with hypoxia (principal); J18.9 Pneumonia, unspecified organism; G93.41 Metabolic encephalopathy; C34.12 Malignant neoplasm of upper lobe, left bronchus or lung; E87.1 Hypo-osmolality and hyponatremia; J44.1 Chronic obstructive pulmonary disease with (acute) exacerbation; J44.0 Chronic obstructive pulmonary disease with (acute) lower respiratory infection; I50.22 Chronic systolic (congestive) heart failure; I11.0 Hypertensive heart disease with heart failure; I25.10 Atherosclerotic heart disease of native coronary artery without angina pectoris; Z20.822 Contact with and (suspected) exposure to COVID-19; E83.42 Hypomagnesemia; D64.9 Anemia, unspecified; E11.65 Type 2 diabetes mellitus with hyperglycemia; E78.5 Hyperlipidemia, unspecified; I25.5 Ischemic cardiomyopathy; M06.9 Rheumatoid arthritis, unspecified; I48.0 Paroxysmal atrial fibrillation; E87.6 Hypokalemia; Z79.82 Long term (current) use of aspirin; Z80.9 Family history of malignant neoplasm, unspecified; Z91.190 Patient's noncompliance with other medical treatment and regimen due to financial hardship; Z79.899 Other long term (current) drug therapy; Z79.4 Long term (current) use of insulin; Z98.890 Other specified postprocedural states; Z86.73 Personal history of transient ischemic attack (TIA), and cerebral infarction without residual deficits; Z95.5 Presence of coronary angioplasty implant and graft
CPT/HCPCS: 36415; 36416; 71045; 71275; 80048; 80202; 82553; 83735; 84100; 85025; 87040; 87070; 87081; 87205; 93005; 94002; 94640; 96365; 96366; 96368; 96375; 99292; C9113; J0692; J1642; J1650; J1815; J1940; J2920; J2930; J3010; J3370; J3475; J3480; J3490; J7050; J7620; Q9967

== ENCOUNTER 2022-05-02 00:32 | Inpatient (IN) | payer MEDICARE ==
[2022-05-02 01:33] LABS: #Lymphocytes 1.3 thou/uL (1.20-3.40); #Monocytes 0.5 thou/uL (0.11-0.59); #Neutrophils 6.9 thou/uL (1.40-6.50); %Basophils 0.4 % (0.0-1.0); %Eosinophils 0.3 % (0.0-10.0); %Lymphocytes 14.3 % (21.0-51.0); %Monocytes 5.9 % (0.0-10.0); %Neutrophils 79.1 % (42.0-75.0); Hemoglobin 14.4 g/dL (14.0-18.0); Mean Corpuscular HGB CONC 33.3 g/dL (32.0-36.0); Mean Corpuscular Hemoglobin 33.1 pg (27.0-31.0); Mean Corpuscular Volume 99.3 fl (78.0-98.0); Mean Platelet Volume 7.7 fL (7.4-10.4); Platelet Count 207 10x3/uL (130-400); RBC Distribution Width 11.6 % (11.5-14.5); Red Blood Cell (RBC) Count 4.35 mill/uL (4.70-6.10); White Blood Cell (WBC) Count 8.8 10x3/uL (4.8-10.8)
[2022-05-02 01:55] LABS: ALT (SGPT) 185 U/L (8-55); AST (SGOT) 307 U/L (5-34); Albumin 4.7 g/dL (3.4-4.8); Alkaline Phosphatase 213 U/L (40-110); Anion Gap 17 mmol/L (10-20); BUN (Urea Nitrogen) 12 mg/dL (8.4-25.7); Bilirubin, Total 0.5 mg/dL (0.2-1.2); Calc. Creatinine Clearance 0 mL/min (70-130); Calcium 8.9 mg/dL (7.8-10.44); Carbon Dioxide 20 mmol/L (23-31); Chloride 100 mmol/L (98-107); Estimated GFR 83; Globulin 3.2 g/dL (2.4-3.5); Glucose 339 mg/dL (80-115); Potassium 4.3 mmol/L (3.5-5.1); Protein, Total 7.9 g/dL (5.8-8.1); Sodium 133 mmol/L (136-145)
[2022-05-02 02:11] LABS: SARS-CoV-2 NAA Rapid Test Not Detected (NotDetected)
[2022-05-02 02:15] LABS: CKMB 3.9 ng/mL (0-6.6)
[2022-05-02] MEDS ORDERED: Aspirin Chewable 81 MG TAB ONE (02:44)
[2022-05-02] MEDS ORDERED: Ondansetron PF 4 MG/2 ML Vial IVP PRN (03:55)
[2022-05-02] MEDS ORDERED: Acetaminophen 325 MG TAB PO PRN (03:55)
[2022-05-02] MEDS ORDERED: Dextrose 5% in Water 1,000 ML IV PRN (04:00)
[2022-05-02] MEDS ORDERED: HumaLOG 300 UNITS/3 ML VIAL SC PRN (04:00)
[2022-05-02] MEDS ORDERED: Dextrose 50% Abboject 50 ML SYRINGE SLOW IVP PRN (04:00)
[2022-05-02] MEDS ORDERED: Furosemide 40 MG/4 ML VIAL ONE (04:11)
[2022-05-02 04:31] LABS: Bilirubin Negative (Negative); Blood, Urine Negative (Negative); Clarity Clear (Clear); Glucose, Urine (Dipstick) Greater than 1000 mg/dL (Negative); Ketone, Urine Negative (Negative); Leukocyte Negative Leu/uL (Negative); Nitrite Negative (Negative); Protein, Urine (Dipstick) 20 mg/dL (Neg-Trace); Specific Gravity, Urine 1.017 (1.002-1.036); Urobilinogen Normal mg/dL (Less than 2)
[2022-05-02 04:39] LABS: Amphetamine Not Detected (NotDetected); Barbiturates Screen Not Detected (NotDetected); Benzodiazepine Screen Not Detected (NotDetected); Cocaine Metabolite Screen Detected (NotDetected); Methadone Not Detected (NotDetected); Methamphetamine Not Detected (NotDetected); Opiate Screen Not Detected (NotDetected); Oxycodone Screen Not Detected (NotDetected); Phencyclidine (PCP) Not Detected (NotDetected); THC/Cannabinoid Screen Not Detected (NotDetected); Tricyclic Screen Not Detected (NotDetected)
[2022-05-02 06:11] LABS: Lactic Acid 2.5 mmol/L (0.5-2.2)
[2022-05-02 06:18] LABS: Acetaminophen Less than 10.0 mcg/mL (10.0-30.0); Alcohol Less than 10 mg/dL (Less than 10); Salicylate Less than 8.0 mg/dL (15.0-30.0)
[2022-05-02 06:23] LABS: Troponin I 0.135 ng/mL (< 0.028)
[2022-05-02 08:40] VITALS: BMI 21.7
[2022-05-02] MEDS: Furosemide 40 MG/4 ML VIAL SLOW IVP SCH ×2 (09:07→15:09)
[2022-05-02] MEDS: Aspirin Chewable 81 MG TAB PO SCH (09:07)
[2022-05-02] MEDS: Enoxaparin Sodium 40 MG/0.4 ML SYRINGE SC SCH (09:07)
[2022-05-02] MEDS: Famotidine 20 MG TAB PO SCH ×2 (09:08→20:10)
[2022-05-02] MEDS: hydrALAZINE 25 MG TAB PO SCH ×3 (09:08→20:11)
[2022-05-02] MEDS: HumaLOG 300 UNITS/3 ML VIAL SC PRN ×3 (09:09→17:04)
[2022-05-02] MEDS: Lisinopril 10 MG TAB PO SCH ×2 (09:09→20:11)
[2022-05-02] MEDS: Isosorbide Dinitrate 5 MG TAB PO SCH ×2 (09:35→20:10)
[2022-05-02 09:46] LABS: Troponin I 0.126 ng/mL (< 0.028)
[2022-05-02] MEDS ORDERED: FLU VACC QS2022-23(65YR UP)/PF 240 MCG/0.7 ML SYRINGE IM ONE (12:30)
[2022-05-02] MEDS ORDERED: Insulin Glargine 30 UNITS/0.3 ML VIAL SC SCH (14:00)
[2022-05-02] MEDS: Insulin Glargine 30 UNITS/0.3 ML VIAL SC SCH (20:11)
[2022-05-03 03:10] LABS: #Lymphocytes 0.7 thou/uL (1.20-3.40); #Monocytes 0.7 thou/uL (0.11-0.59); #Neutrophils 4.8 thou/uL (1.40-6.50); %Basophils 0.7 % (0.0-1.0); %Eosinophils 0.5 % (0.0-10.0); %Lymphocytes 11.5 % (21.0-51.0); %Monocytes 10.5 % (0.0-10.0); %Neutrophils 76.8 % (42.0-75.0); Hemoglobin 12.7 g/dL (14.0-18.0); Mean Corpuscular HGB CONC 32.8 g/dL (32.0-36.0); Mean Corpuscular Hemoglobin 32.6 pg (27.0-31.0); Mean Corpuscular Volume 99.2 fl (78.0-98.0); Mean Platelet Volume 7.4 fL (7.4-10.4); Platelet Count 192 10x3/uL (130-400); RBC Distribution Width 11.6 % (11.5-14.5); Red Blood Cell (RBC) Count 3.89 mill/uL (4.70-6.10); White Blood Cell (WBC) Count 6.2 10x3/uL (4.8-10.8)
[2022-05-03 03:46] LABS: ALT (SGPT) 68 U/L (8-55); AST (SGOT) 33 U/L (5-34); Albumin 3.4 g/dL (3.4-4.8); Alkaline Phosphatase 131 U/L (40-110); Anion Gap 11 mmol/L (10-20); BUN (Urea Nitrogen) 17 mg/dL (8.4-25.7); Bilirubin, Total 0.9 mg/dL (0.2-1.2); Calc. Creatinine Clearance 76 mL/min (70-130); Calcium 8.7 mg/dL (7.8-10.44); Carbon Dioxide 32 mmol/L (23-31); Chloride 100 mmol/L (98-107); Estimated GFR 97; Globulin 2.5 g/dL (2.4-3.5); Glucose 123 mg/dL (80-115); Magnesium 1.6 mg/dL (1.6-2.6); Potassium 3.3 mmol/L (3.5-5.1); Protein, Total 5.9 g/dL (5.8-8.1); Sodium 140 mmol/L (136-145)
[2022-05-03] MEDS ORDERED: Electrolyte Replacement Protocol 1 EACH FS SCH (06:15)
[2022-05-03] MEDS ORDERED: Magnesium 2 GM/50 ML(in water) 2 GM in Premix Bag 1 BAG IVPB SCH (06:30)
[2022-05-03] MEDS ORDERED: Potassium Chloride 20 MEQ TAB PO SCH ×3 (06:30→23:30)
[2022-05-03] MEDS: Furosemide 40 MG/4 ML VIAL SLOW IVP SCH ×2 (06:34→14:46)
[2022-05-03] MEDS: hydrALAZINE 25 MG TAB PO SCH ×3 (08:23→21:26)
[2022-05-03] MEDS: Isosorbide Dinitrate 5 MG TAB PO SCH ×2 (08:23→20:50)
[2022-05-03] MEDS: Lisinopril 10 MG TAB PO SCH ×2 (08:23→20:50)
[2022-05-03] MEDS: Enoxaparin Sodium 40 MG/0.4 ML SYRINGE SC SCH (08:23)
[2022-05-03] MEDS: Aspirin Chewable 81 MG TAB PO SCH (08:23)
[2022-05-03] MEDS: Famotidine 20 MG TAB PO SCH ×2 (08:23→20:50)
[2022-05-03] MEDS: Insulin Glargine 30 UNITS/0.3 ML VIAL SC SCH ×2 (08:24→20:51)
[2022-05-03 10:23] LABS: Lactic Acid 2.6 mmol/L (0.5-2.2)
[2022-05-03 23:14] LABS: Potassium 3.5 mmol/L (3.5-5.1)
[2022-05-04 05:15] LABS: #Eosinphils 0.1 thou/uL (0.0-0.7); #Lymphocytes 0.8 thou/uL (1.20-3.40); #Monocytes 0.7 thou/uL (0.11-0.59); #Neutrophils 3.6 thou/uL (1.40-6.50); %Basophils 0.3 % (0.0-1.0); %Eosinophils 1.3 % (0.0-10.0); %Lymphocytes 16.2 % (21.0-51.0); %Monocytes 13.4 % (0.0-10.0); %Neutrophils 68.8 % (42.0-75.0); Hemoglobin 13.9 g/dL (14.0-18.0); Mean Corpuscular HGB CONC 31.3 g/dL (32.0-36.0); Mean Corpuscular Hemoglobin 31.4 pg (27.0-31.0); Mean Platelet Volume 7.4 fL (7.4-10.4); Platelet Count 230 10x3/uL (130-400); RBC Distribution Width 11.5 % (11.5-14.5); Red Blood Cell (RBC) Count 4.42 mill/uL (4.70-6.10); White Blood Cell (WBC) Count 5.2 10x3/uL (4.8-10.8)
[2022-05-04 05:33] LABS: ALT (SGPT) 43 U/L (8-55); AST (SGOT) 20 U/L (5-34); Albumin 3.4 g/dL (3.4-4.8); Alkaline Phosphatase 127 U/L (40-110); Anion Gap 13 mmol/L (10-20); BUN (Urea Nitrogen) 19 mg/dL (8.4-25.7); Bilirubin, Total 1.2 mg/dL (0.2-1.2); Calc. Creatinine Clearance 69 mL/min (70-130); Calcium 8.6 mg/dL (7.8-10.44); Carbon Dioxide 30 mmol/L (23-31); Chloride 99 mmol/L (98-107); Estimated GFR 95; Globulin 2.6 g/dL (2.4-3.5); Glucose 61 mg/dL (80-115); Magnesium 1.8 mg/dL (1.6-2.6); Potassium 3.8 mmol/L (3.5-5.1); Sodium 138 mmol/L (136-145)
[2022-05-04] MEDS: Furosemide 40 MG/4 ML VIAL SLOW IVP SCH (06:26)
[2022-05-04] MEDS ORDERED: Spironolactone 25 MG TAB PO SCH (08:00)
[2022-05-04] MEDS ORDERED: Magnesium 2 GM/50 ML(in water) 2 GM in Premix Bag 1 BAG IVPB SCH (08:00)
[2022-05-04 08:06] VITALS: BP 129/82; TEMP 98.7
[2022-05-04] MEDS: Aspirin Chewable 81 MG TAB PO SCH (08:22)
[2022-05-04] MEDS: Enoxaparin Sodium 40 MG/0.4 ML SYRINGE SC SCH (08:22)
[2022-05-04] MEDS: Famotidine 20 MG TAB PO SCH (08:23)
[2022-05-04] MEDS: Insulin Glargine 30 UNITS/0.3 ML VIAL SC SCH (08:23)
[2022-05-04] MEDS: Isosorbide Dinitrate 5 MG TAB PO SCH (08:24)
[2022-05-04] MEDS: Lisinopril 10 MG TAB PO SCH (08:25)
[2022-05-04] MEDS: hydrALAZINE 25 MG TAB PO SCH (08:29)
== END 2022-05-04 09:45 | disposition home or self-care (01) | DRG 291 ==
LOC: ERS 00:32 → CCU 03:56 → 2SW 05-03 04:49
PROVIDERS: ADMIT Internal Medicine; ATTEND Internal Medicine
DX: I11.0 Hypertensive heart disease with heart failure (principal); I50.43 Acute on chronic combined systolic (congestive) and diastolic (congestive) heart failure; J96.01 Acute respiratory failure with hypoxia; E87.1 Hypo-osmolality and hyponatremia; I16.1 Hypertensive emergency; E87.20 Acidosis, unspecified; C34.12 Malignant neoplasm of upper lobe, left bronchus or lung; I24.8 Other forms of acute ischemic heart disease; I25.10 Atherosclerotic heart disease of native coronary artery without angina pectoris; E11.65 Type 2 diabetes mellitus with hyperglycemia; I16.0 Hypertensive urgency; I48.0 Paroxysmal atrial fibrillation; J44.9 Chronic obstructive pulmonary disease, unspecified; Z79.82 Long term (current) use of aspirin; Z79.4 Long term (current) use of insulin; Z79.52 Long term (current) use of systemic steroids; Z95.5 Presence of coronary angioplasty implant and graft; Z91.14 Patient's other noncompliance with medication regimen
CPT/HCPCS: 36415; 36416; 71045; 80053; 80306; 80307; 81003; 82553; 83605; 83735; 83880; 84484; 85025; 90471; 90662; 93005; 93306; 94640; 94760; 96365; 96366; 96375; G0008; J1650; J1815; J1940; J3475; J7620; U0002

== ENCOUNTER 2023-12-22 16:26 | Inpatient (IN) | payer MEDICARE, MEDICAID ==
[~2023-12-22 16:26] MED LIST changes: -Iopamidol-370 76% 500 ML 1 ML ONE; +Iopamidol-370 76% 500 ML MDV (1 ML CHARGE) ONE
[2023-12-22 17:21] LABS: Hematocrit 31.7 % (42.0-52.0); Hemoglobin 10.4 g/dL (14.0-18.0); Mean Corpuscular HGB CONC 32.8 g/dL (32.0-36.0); Mean Corpuscular Volume 85.4 fL (78.0-98.0); Mean Platelet Volume 9.5 fL (7.4-10.4); Platelet Count 282 10x3/uL (130-400); Red Blood Cell (RBC) Count 3.71 mill/uL (4.70-6.10)
[2023-12-22] MEDS ORDERED: Cefepime 2 GM VIAL ONE (17:28)
[2023-12-22] MEDS ORDERED: Acetaminophen 500 MG TAB ONE (17:28)
[2023-12-22] MEDS ORDERED: Sodium Chloride 0.9% 100 ML ONE (17:28)
[2023-12-22 17:34] LABS: ALT (SGPT) 7 U/L (8-55); AST (SGOT) 19 U/L (5-34); Albumin 2.6 g/dL (3.4-4.8); Alkaline Phosphatase 93 U/L (40-110); Anion Gap 16 mmol/L (10-20); BUN (Urea Nitrogen) 13 mg/dL (8.4-25.7); Calc. Creatinine Clearance 0 mL/min (70-130); Calcium 8.6 mg/dL (7.8-10.44); Carbon Dioxide 21 mmol/L (23-31); Chloride 97 mmol/L (98-107); Estimated GFR 100; Globulin 4.7 g/dL (2.4-3.5); Glucose 270 mg/dL (80-115); Potassium 4.4 mmol/L (3.5-5.1); Protein, Total 7.3 g/dL (5.8-8.1); Sodium 130 mmol/L (136-145)
[2023-12-22] MEDS ORDERED: LevoFLOXacin 750 mg/D5W 150 ml Premix Bag ONE (17:34)
[2023-12-22 17:38] LABS: Troponin I 0.263 ng/mL (< 0.028)
[2023-12-22 17:48] LABS: Band 41 % (5-11); Burr Cells SLIGHT = 2-5 cells HPF (0-1); Lymphocytes 5 % (21-51); Metamyelocyte 6 % (0-0); Monocytes 17 % (0-10); Neutrophil 23 % (42-75); Platelet Adequacy Comment Platelets Normal; Polychromasia SLIGHT = 2-3 cells HPF (0-2); Reactive Lymphocytes 9 % (0-10); Reflex for Review?? YES; Vacuoles MARKED
[2023-12-22 19:21] LABS: Influenza A by NAA Not Detected (NotDetected); Influenza B by NAA Not Detected (NotDetected); SARS-CoV-2 NAA Rapid Test Not Detected (NotDetected)
[2023-12-22] MEDS ORDERED: Acetaminophen 650 MG Suppository PR PRN (19:49)
[2023-12-22] MEDS ORDERED: Famotidine 20 MG TAB PO SCH (21:00)
[2023-12-22 21:44] VITALS: BMI 17.9
[2023-12-22] MEDS: Ipratropium/Albuterol 3 ML NEB NEB PRN (21:53)
[2023-12-22] MEDS: Vancomycin (BATCH) 1.5 GM in Premix 1 BAG IVPB SCH (22:09)
[2023-12-22] MEDS: Famotidine/PF 20 mg/2ml Vial SLOW IVP SCH (22:10)
[2023-12-22] MEDS: Isosorbide Dinitrate 5 MG TAB PO SCH (22:10)
[2023-12-22] MEDS: Atorvastatin Calcium 40 MG TAB PO SCH (22:11)
[2023-12-22] MEDS: Carvedilol 6.25 MG TAB PO SCH (22:11)
[2023-12-22] MEDS: hydrALAZINE 25 MG TAB PO SCH (22:11)
[2023-12-22] MEDS: traMADol HCl 50 MG TAB PO PRN (22:12)
[2023-12-22] MEDS: Famotidine 20 MG TAB PO SCH (22:13)
[2023-12-22 22:57] LABS: Magnesium 1.3 mg/dL (1.6-2.6)
[2023-12-22 23:10] LABS: Troponin I 0.251 ng/mL (< 0.028)
[2023-12-22] MEDS ORDERED: Nitroglycerin 0.4 MG TAB (25 Tab Bottle) SL PRN (23:39)
[2023-12-22 23:41] LABS: Hematocrit 27.5 % (42.0-52.0); Hemoglobin 8.7 g/dL (14.0-18.0); Platelet Count 242 10x3/uL (130-400)
[2023-12-22] MEDS ORDERED: Electrolyte Replacement Protocol FS SCH (23:45)
[2023-12-23] MEDS: Magnesium Sulfate In Water 4 GM in Premix 1 BAG IVPB SCH (01:09)
[2023-12-23] MEDS: Enoxaparin 60 MG (0.6 mL) SYRINGE SC SCH ×2 (01:10→01:22)
[2023-12-23] MEDS: Cefepime 2 GM in Sodium Chloride 0.9% 100 ML IVPB SCH (01:10)
[2023-12-23] MEDS: Furosemide 20 MG (2 mL) VIAL SLOW IVP SCH (01:10)
[2023-12-23 05:39] LABS: Hematocrit 28.6 % (42.0-52.0); Hemoglobin 9.1 g/dL (14.0-18.0); Mean Corpuscular HGB CONC 31.8 g/dL (32.0-36.0); Mean Corpuscular Hemoglobin 27.7 pg (27.0-31.0); Mean Corpuscular Volume 87.2 fL (78.0-98.0); Mean Platelet Volume 9.3 fL (7.4-10.4); Platelet Count 279 10x3/uL (130-400); RBC Distribution Width 14.1 % (11.5-14.5); Red Blood Cell (RBC) Count 3.28 mill/uL (4.70-6.10)
[2023-12-23 05:46] LABS: Vancomycin, Random 18.1 ug/mL (See Comment)
[2023-12-23 05:50] LABS: Anion Gap 16 mmol/L (10-20); BUN (Urea Nitrogen) 16 mg/dL (8.4-25.7); Calc. Creatinine Clearance 83 mL/min (70-130); Calcium 8.5 mg/dL (7.8-10.44); Carbon Dioxide 23 mmol/L (23-31); Chloride 98 mmol/L (98-107); Estimated GFR 102; Glucose 277 mg/dL (80-115); Magnesium 2.9 mg/dL (1.6-2.6); Potassium 3.5 mmol/L (3.5-5.1); Sodium 133 mmol/L (136-145)
[2023-12-23 06:01] LABS: Band 34 % (5-11); Burr Cells MODERATE= 6-15 cells HPF (0-1); Dohle Bodies SLIGHT; Lymphocytes 6 % (21-51); Monocytes 13 % (0-10); Neutrophil 48 % (42-75); Platelet Adequacy Comment Platelets Normal; Poikilocytosis MODERATE=16-30 cells HPF (0-5); Polychromasia SLIGHT = 2-3 cells HPF (0-2); Target Cells SLIGHT = 2-5 cells HPF (0-1); Tear Drops SLIGHT = 2-5 cells HPF (0-1); Toxic Granulation SLIGHT
[2023-12-23] MEDS: Vancomycin 1 GM in Premix 1 BAG IVPB SCH ×3 (07:30→19:38)
[2023-12-23] MEDS: Communication Order-Pharmacy FS ONE (07:30)
[2023-12-23] MEDS: Guaifenesin DM 100-10/5 ML UDCUP PO SCH (08:54)
[2023-12-23] MEDS: Tamsulosin HCl 0.4 MG CAP PO SCH (08:55)
[2023-12-23] MEDS: Saccharomyces boulardii 250 MG CAP PO SCH (08:55)
[2023-12-23] MEDS: Aspirin 325 mg Enteric Coated Tablet PO SCH (08:55)
[2023-12-23] MEDS: Potassium Chloride 20 MEQ TAB PO SCH (08:55)
[2023-12-23] MEDS: Sertraline 25 MG TAB PO SCH (08:55)
[2023-12-23] MEDS: Insulin Glargine 30 UNITS/0.3 ML VIAL SC SCH (08:56)
[2023-12-23] MEDS: Furosemide 20 MG TAB PO SCH (08:56)
[2023-12-23] MEDS: Spironolactone 25 MG TAB PO SCH (08:56)
[2023-12-23] MEDS: Polyethylene Glycol 3350 17 GM Packet PO SCH (09:30)
[2023-12-23 10:59] LABS: Legionella Urinary Ag Negative (Negative); Strep pneumo Urine Ag NEGATIVE (NEGATIVE)
[2023-12-23] MEDS: LevoFLOXacin 750 mg/D5W 750 MG in Premix 1 BAG IVPB SCH (16:21)
[2023-12-23] MEDS: Acetaminophen 325 MG TAB PO PRN (17:18)
[2023-12-23] MEDS ORDERED: Vancomycin (BATCH) 1.25 GM in Premix 1 BAG IVPB SCH (21:00)
[2023-12-24 05:12] LABS: Hematocrit 31.9 % (42.0-52.0); Hemoglobin 9.4 g/dL (14.0-18.0); Mean Corpuscular HGB CONC 29.5 g/dL (32.0-36.0); Mean Corpuscular Hemoglobin 27.2 pg (27.0-31.0); Mean Corpuscular Volume 92.2 fL (78.0-98.0); Mean Platelet Volume 9.5 fL (7.4-10.4); Platelet Count 250 10x3/uL (130-400); RBC Distribution Width 14.1 % (11.5-14.5); Red Blood Cell (RBC) Count 3.46 mill/uL (4.70-6.10)
[2023-12-24 05:21] LABS: ALT (SGPT) 6 U/L (8-55); AST (SGOT) 10 U/L (5-34); Albumin 2.2 g/dL (3.4-4.8); Alkaline Phosphatase 88 U/L (40-110); Anion Gap 13 mmol/L (10-20); BUN (Urea Nitrogen) 15 mg/dL (8.4-25.7); Bilirubin, Total 0.6 mg/dL (0.2-1.2); Calc. Creatinine Clearance 83 mL/min (70-130); Calcium 8.7 mg/dL (7.8-10.44); Carbon Dioxide 23 mmol/L (23-31); Chloride 99 mmol/L (98-107); Estimated GFR 102; Globulin 4.1 g/dL (2.4-3.5); Glucose 190 mg/dL (80-115); Potassium 4.2 mmol/L (3.5-5.1); Protein, Total 6.3 g/dL (5.8-8.1); Sodium 131 mmol/L (136-145)
[2023-12-24 05:24] LABS: Anisocytosis SLIGHT = 6-15 cells HPF (0-5); Band 10 % (5-11); Burr Cells MODERATE= 6-15 cells HPF (0-1); Eosinophils 1 % (0-10); Lymphocytes 5 % (21-51); Monocytes 6 % (0-10); Neutrophil 77 % (42-75); Ovalocytes SLIGHT = 2-5 cells HPF (0-1); Platelet Adequacy Comment Platelets Normal; Poikilocytosis SLIGHT = 6-15 cells HPF (0-5); Polychromasia SLIGHT = 2-3 cells HPF (0-2); Tear Drops SLIGHT = 2-5 cells HPF (0-1); Toxic Granulation SLIGHT
[2023-12-25 04:52] LABS: #Basophils Less than 0.03 10x3/uL (0.0-0.2); %Basophils 0.1 % (0.0-1.0); %Eosinophils 0.4 % (0.0-10.0); %Lymphocytes 9.1 % (21.0-51.0); %Monocytes 10.2 % (0.0-10.0); %Neutrophils 79.5 % (42.0-75.0); Hematocrit 26.8 % (42.0-52.0); Hemoglobin 8.4 g/dL (14.0-18.0); Mean Corpuscular HGB CONC 31.3 g/dL (32.0-36.0); Mean Corpuscular Hemoglobin 27.2 pg (27.0-31.0); Mean Corpuscular Volume 86.7 fL (78.0-98.0); Mean Platelet Volume 9.4 fL (7.4-10.4); Platelet Count 292 10x3/uL (130-400); Red Blood Cell (RBC) Count 3.09 mill/uL (4.70-6.10)
[2023-12-25 05:04] LABS: Vancomycin, Random 26.8 ug/mL (See Comment)
[2023-12-25 05:11] LABS: ALT (SGPT) 6 U/L (8-55); AST (SGOT) 10 U/L (5-34); Albumin 2.2 g/dL (3.4-4.8); Alkaline Phosphatase 77 U/L (40-110); Anion Gap 11 mmol/L (10-20); BUN (Urea Nitrogen) 10 mg/dL (8.4-25.7); Bilirubin, Total 0.5 mg/dL (0.2-1.2); Calc. Creatinine Clearance 93 mL/min (70-130); Calcium 8.4 mg/dL (7.8-10.44); Carbon Dioxide 24 mmol/L (23-31); Chloride 99 mmol/L (98-107); Estimated GFR 106; Globulin 3.9 g/dL (2.4-3.5); Glucose 74 mg/dL (80-115); Potassium 3.3 mmol/L (3.5-5.1); Protein, Total 6.1 g/dL (5.8-8.1); Sodium 131 mmol/L (136-145)
[2023-12-25] MEDS: Potassium Chloride 20 MEQ TAB PO SCH (09:45)
[2023-12-25] MEDS: Vancomycin (BATCH) 1.5 GM in Premix 1 BAG IVPB SCH (21:54)
[2023-12-26] MEDS: Ketorolac Tromethamine 30 MG (1 mL) VIAL IVP SCH (01:27)
[2023-12-26] MEDS: Lidocaine 4% Patch TD SCH (01:28)
[2023-12-26 05:03] LABS: #Basophils 0.03 10x3/uL (0.0-0.2); %Basophils 0.4 % (0.0-1.0); %Lymphocytes 11.2 % (21.0-51.0); %Monocytes 12.1 % (0.0-10.0); %Neutrophils 74.5 % (42.0-75.0); Hematocrit 27.4 % (42.0-52.0); Hemoglobin 8.6 g/dL (14.0-18.0); Mean Corpuscular HGB CONC 31.4 g/dL (32.0-36.0); Mean Corpuscular Hemoglobin 26.8 pg (27.0-31.0); Mean Corpuscular Volume 85.4 fL (78.0-98.0); Mean Platelet Volume 9.6 fL (7.4-10.4); Platelet Count 325 10x3/uL (130-400); RBC Distribution Width 14.4 % (11.5-14.5); Red Blood Cell (RBC) Count 3.21 mill/uL (4.70-6.10)
[2023-12-26 05:11] LABS: ALT (SGPT) 5 U/L (8-55); AST (SGOT) 8 U/L (5-34); Albumin 2.2 g/dL (3.4-4.8); Alkaline Phosphatase 81 U/L (40-110); Anion Gap 12 mmol/L (10-20); BUN (Urea Nitrogen) 11 mg/dL (8.4-25.7); Bilirubin, Total 0.6 mg/dL (0.2-1.2); Calc. Creatinine Clearance 83 mL/min (70-130); Calcium 7.8 mg/dL (7.8-10.44); Carbon Dioxide 21 mmol/L (23-31); Chloride 104 mmol/L (98-107); Estimated GFR 102; Glucose 111 mg/dL (80-115); Potassium 4.2 mmol/L (3.5-5.1); Protein, Total 5.2 g/dL (5.8-8.1); Sodium 133 mmol/L (136-145)
[2023-12-26 05:12] LABS: Vancomycin, Random 33.8 ug/mL (See Comment)
[2023-12-26] MEDS: Transdermal Patch Removal TOP SCH (14:33)
[2023-12-26] MEDS: Vancomycin HCl 750 MG in Sodium Chloride 0.9% 250 ML 250 ML IVPB SCH (21:50)
[2023-12-27] MEDS: predniSONE 20 MG TAB PO SCH (08:41)
[2023-12-27] MEDS: Aspirin 81 mg Enteric Coated Tablet PO SCH (08:41)
[2023-12-27] MEDS: Polyethylene Glycol 3350 17 GM Packet PO SCH (14:08)
[2023-12-28 09:16] LABS: Hematocrit 32.4 % (42.0-52.0); Hemoglobin 10.2 g/dL (14.0-18.0); Mean Corpuscular HGB CONC 31.5 g/dL (32.0-36.0); Mean Corpuscular Hemoglobin 26.5 pg (27.0-31.0); Mean Corpuscular Volume 84.2 fL (78.0-98.0); Platelet Count 379 10x3/uL (130-400); RBC Distribution Width 14.1 % (11.5-14.5); Red Blood Cell (RBC) Count 3.85 mill/uL (4.70-6.10)
[2023-12-28 09:42] LABS: Anion Gap 12 mmol/L (10-20); BUN (Urea Nitrogen) 12 mg/dL (8.4-25.7); Calc. Creatinine Clearance 84 mL/min (70-130); Calcium 8.3 mg/dL (7.8-10.44); Carbon Dioxide 23 mmol/L (23-31); Chloride 102 mmol/L (98-107); Estimated GFR 102; Glucose 153 mg/dL (80-115); Potassium 3.8 mmol/L (3.5-5.1); Sodium 133 mmol/L (136-145)
[2023-12-28] MEDS ORDERED: Polyethylene Glycol 3350 17 GM Packet PO PRN (12:08)
[2023-12-28 14:43] VITALS: BMI 18.1
[2023-12-28] MEDS: Bisacodyl 10 MG SUPP PR SCH (16:22)
[2023-12-28] MEDS: Insulin Lispro 100 UNIT/ML 10 ML VIAL SC PRN (23:07)
[2023-12-29] MEDS: Insulin Lispro 100 UNIT/ML 10 ML VIAL SC PRN (06:29)
[2023-12-29 15:04] VITALS: BP 149/91; TEMP 97.2
[2023-12-29] MEDS ORDERED: Bisacodyl 10 MG SUPP PR PRN (15:07)
[2023-12-30] MEDS ORDERED: LevoFLOXacin 750 MG TAB PO SCH (16:00)
== END 2023-12-29 15:59 | DRG 871 ==
LOC: ERS 16:26 → 2NO 19:01
PROVIDERS: ADMIT Student in an Organized Health Care Education/Training Program; ATTEND Internal Medicine
DX: A41.9 Sepsis, unspecified organism (principal); I21.A1 Myocardial infarction type 2; J18.9 Pneumonia, unspecified organism; J96.21 Acute and chronic respiratory failure with hypoxia; E44.0 Moderate protein-calorie malnutrition; Z68.1 Body mass index [BMI] 19.9 or less, adult; I50.32 Chronic diastolic (congestive) heart failure; I69.254 Hemiplegia and hemiparesis following other nontraumatic intracranial hemorrhage affecting left non-dominant side; R64 Cachexia; E87.1 Hypo-osmolality and hyponatremia; I25.10 Atherosclerotic heart disease of native coronary artery without angina pectoris; I48.0 Paroxysmal atrial fibrillation; I11.0 Hypertensive heart disease with heart failure; E78.00 Pure hypercholesterolemia, unspecified; J44.9 Chronic obstructive pulmonary disease, unspecified; E11.51 Type 2 diabetes mellitus with diabetic peripheral angiopathy without gangrene; F32.A Depression, unspecified; E83.42 Hypomagnesemia; Z79.899 Other long term (current) drug therapy; Z85.118 Personal history of other malignant neoplasm of bronchus and lung; Z92.21 Personal history of antineoplastic chemotherapy; Z92.3 Personal history of irradiation; I25.2 Old myocardial infarction; Z95.5 Presence of coronary angioplasty implant and graft; Z87.891 Personal history of nicotine dependence
CPT/HCPCS: 36415; 36416; 71045; 71260; 80048; 80053; 80202; 83605; 83735; 83880; 84484; 85025; 85027; 85060; 87040; 87070; 87081; 87205; 87449; 87633; 87798; 87899; 93005; 93306; 94640; 94760; 96365; 96366; 96368; J0692; J1650; J1815; J1885; J1940; J1956; J3370; J3370-JW; J3475; J3490; J7050; J7512; J7620; Q9967

== ENCOUNTER 2025-03-10 12:56 | Observation (INO) | payer MEDICARE, MEDICAID ==
[2025-03-10 13:53] LABS: Bacteria/HPF None Seen HPF (None Seen); CAUTI Indications for Culture Alt mental st,lethar; Glucose, Urine (Dipstick) Normal (Negative); Leukocyte Negative Leu/uL (Negative); Protein, Urine (Dipstick) Negative (Neg-Trace); RBC/HPF 0-3 HPF (0-3); Specific Gravity, Urine 1.014 (1.002-1.036); WBC/HPF 0-3 HPF (0-3)
[2025-03-10 13:54] LABS: #Basophils 0.04 10x3/uL (0.0-0.2); #Eosinophils 0.05 10x3/uL (0.0-0.7); #Monocytes 0.65 10x3/uL (0.11-0.59); #Neutrophils 5.21 10x3/uL (1.40-6.50); %Basophils 0.6 % (0.0-1.0); %Eosinophils 0.7 % (0.0-10.0); %Lymphocytes 13.7 % (21.0-51.0); %Monocytes 9.2 % (0.0-10.0); %Neutrophils 73.8 % (42.0-75.0); Hematocrit 36.0 % (42.0-52.0); Hemoglobin 11.0 g/dL (14.0-18.0); Mean Corpuscular Hemoglobin 27.8 pg (27.0-31.0); Mean Corpuscular Volume 90.9 fL (78.0-98.0); Platelet Count 210 10x3/uL (130-400); Red Blood Cell (RBC) Count 3.96 mill/uL (4.70-6.10); White Blood Cell (WBC) Count 7.06 10x3/uL (4.8-10.8)
[2025-03-10 13:57] LABS: Urine Culture Reflex No No
[2025-03-10] MEDS ORDERED: cefTRIAXone (ROCEPHIN) 2 GM VIAL ONE (14:01)
[2025-03-10 14:05] LABS: ALT (SGPT) 20 U/L (Less than 45); AST (SGOT) 17 U/L (11-34); Albumin 2.7 g/dL (3.1-4.5); Alkaline Phosphatase 78 U/L (40-110); Anion Gap 16 mmol/L (10-20); BUN (Urea Nitrogen) 23 mg/dL (8.4-25.7); Bilirubin, Total 0.7 mg/dL (0.3-1.2); Calc. Creatinine Clearance 0 mL/min (70-130); Calcium 8.5 mg/dL (7.8-10.44); Carbon Dioxide 20 mmol/L (23-31); Chloride 103 mmol/L (98-107); Globulin 3.5 g/dL (2.4-3.5); Glucose 109 mg/dL (80-115); Magnesium 1.7 mg/dL (1.6-2.6); Potassium 4.2 mmol/L (3.5-5.1); Sodium 135 mmol/L (136-145)
[2025-03-10 14:22] LABS: Actual Bicarbonate (HCO3v) 25.6 mEq/L (22-28); Base Excess 0.2 mEq/L (-2.0 to +3.0); Calcium, Ionized (venous) 1.02 mmol/L (1.16-1.32); Chloride (VBG) 103 mmol/L (98-106); Hematocrit-VBG 33 % (42.0-52.0); Hemoglobin (Hb) 11.2 g/dL (12.6-17.4); Potassium (VBG) 3.91 mmol/L (3.70-5.30); Sodium 135 mmol/L (133-146)
[2025-03-10] MEDS ORDERED: Hydrocortisone Sod Succ/PF 100 mg/2 ml Vial ONE (14:23)
[2025-03-10] MEDS ORDERED: Ondansetron PF 4 MG/2 ML Vial IVP PRN ×2 (16:45→17:24)
[2025-03-10] MEDS ORDERED: Bisacodyl 10 MG SUPP PR PRN (17:22)
[2025-03-10] MEDS ORDERED: Guaifenesin DM 100-10/5 ML UDCUP PO PRN (17:22)
[2025-03-10] MEDS ORDERED: Acetaminophen 325 MG TAB PO PRN (17:24)
[2025-03-10] MEDS ORDERED: Calcium Carbonate 500 MG ChewTAB PO PRN (17:24)
[2025-03-10 17:27] VITALS: BMI 21.4
[2025-03-10] MEDS ORDERED: Glucagon 1 MG/ML KIT IM PRN (17:40)
[2025-03-10] MEDS ORDERED: Dextrose 50% Abboject 50 ML SYRINGE SLOW IVP PRN (17:40)
[2025-03-10] MEDS ORDERED: PNEUMOC 20-VAL CONJ-DIP CRM/PF 0.5 ML SYRINGE IM ONE (17:45)
[2025-03-10] MEDS ORDERED: FLU (Fluad Triv) 25-26 (65UP)PF 45 MCG/0.5 ML Syringe IM ONE (17:45)
[2025-03-10] MEDS: Famotidine 20 MG TAB PO SCH (20:50)
[2025-03-11 04:31] LABS: #Basophils Less than 0.03 10x3/uL (0.0-0.2); #Eosinophils Less than 0.03 10x3/uL (0.0-0.7); #Monocytes 0.61 10x3/uL (0.11-0.59); #Neutrophils 4.18 10x3/uL (1.40-6.50); %Basophils 0.4 % (0.0-1.0); %Eosinophils 0.4 % (0.0-10.0); %Lymphocytes 13.6 % (21.0-51.0); %Monocytes 10.8 % (0.0-10.0); %Neutrophils 73.6 % (42.0-75.0); Hematocrit 37.0 % (42.0-52.0); Hemoglobin 10.5 g/dL (14.0-18.0); Mean Corpuscular Hemoglobin 27.5 pg (27.0-31.0); Mean Corpuscular Volume 96.9 fL (78.0-98.0); Platelet Count 190 10x3/uL (130-400); Red Blood Cell (RBC) Count 3.82 mill/uL (4.70-6.10); White Blood Cell (WBC) Count 5.67 10x3/uL (4.8-10.8)
[2025-03-11 04:33] LABS: Anion Gap 18 mmol/L (10-20); BUN (Urea Nitrogen) 24 mg/dL (8.4-25.7); Calc. Creatinine Clearance 74 mL/min (70-130); Calcium 8.1 mg/dL (7.8-10.44); Carbon Dioxide 15 mmol/L (23-31); Chloride 107 mmol/L (98-107); Glucose 135 mg/dL (80-115); Potassium 4.4 mmol/L (3.5-5.1); Sodium 136 mmol/L (136-145)
[2025-03-11 04:59] LABS: Burr Cells MODERATE= 6-15 cells HPF (0-1); Platelet Adequacy Comment Platelets Normal; Polychromasia SLIGHT = 2-3 cells HPF (0-2)
[2025-03-11] MEDS: Insulin Glargine 30 UNITS/0.3 ML VIAL SC SCH (09:00)
[2025-03-11] MEDS: Gabapentin 100 MG CAP PO SCH (09:00)
[2025-03-11] MEDS: Sertraline 100 MG TAB PO SCH (09:00)
[2025-03-11] MEDS: predniSONE 20 MG TAB PO SCH (09:00)
[2025-03-11] MEDS: Aspirin 81 mg Enteric Coated Tablet PO SCH (09:00)
[2025-03-11] MEDS: Enoxaparin 40 MG (0.4 mL) SYRINGE SC SCH (09:01)
[2025-03-11 13:33] VITALS: BP 136/79; TEMP 97.7
== END 2025-03-11 15:30 ==
LOC: ERS 12:56 → 2NO 15:10
PROVIDERS: ADMIT Internal Medicine; ATTEND Family Medicine
DX: I95.2 Hypotension due to drugs (principal); E11.9 Type 2 diabetes mellitus without complications; I11.0 Hypertensive heart disease with heart failure; I50.32 Chronic diastolic (congestive) heart failure; I25.10 Atherosclerotic heart disease of native coronary artery without angina pectoris; J44.9 Chronic obstructive pulmonary disease, unspecified; E78.5 Hyperlipidemia, unspecified; Z79.84 Long term (current) use of oral hypoglycemic drugs; Z98.890 Other specified postprocedural states; Z79.82 Long term (current) use of aspirin; Z79.899 Other long term (current) drug therapy
CPT/HCPCS: 51701; 70450; 71045; 80048; 80053; 81001; 82805; 82962 ×2; 83605; 83735; 84484; 85025 ×2; 87040; 87086; 93005; 96361; 96365; 96372; 96375; 99285; G0378 ×3; J0696; J1650; J1720; J1815 ×2; J7030 ×2; 36415; 36416; J7512